=== PATIENT | male | born 1980 | race Caucasian/White ===

== ENCOUNTER 2017-06-14 16:54 | Inpatient (IN) | payer OTHER ==
[~2017-06-14] VITALS: Ht 172.7 cm; Wt 72.3 kg
[2017-06-14] MEDS ORDERED: IOHEXOL 350 MG/ML 10 ML VIAL (for RAD DIAG) IVCONTRAST ONE (16:55)
[2017-06-14 16:56] VITALS: BP 138/97; PULSE 76; RESP 16; TEMP 99.1; O2SAT 97
--- NOTE | 2017-06-14 17:39 | RADRPT ---
EXAM DATE/TIME: 06/14/2017 17:14 [facility] COMPARISON: No previous studies available for comparison. INDICATIONS : Lower chest pain for 2 weeks MEDICAL HISTORY : None. SURGICAL HISTORY : None. ENCOUNTER: Initial ACUITY: 2 weeks PAIN SCORE: 5/10 LOCATION: Bilateral lower chest FINDINGS: PA and lateral views of the chest demonstrate the lungs to be symmetrically aerated without evidence of mass, infiltrate or effusion. The cardiomediastinal contours are unremarkable. Osseous structure s are intact. CONCLUSION: 1. No acute cardiopulmonary disease. Tae Pardo MD on June 14, 2017 at 17:37 Board Certified Radiologist. This report was verified electronically.
[2017-06-14] MEDS ORDERED: SODIUM CHLOR 0.9% 1000 ML INJ 1,000 ML IV SCH (18:12)
[2017-06-14] MEDS ORDERED: SODIUM CHLORIDE 0.9% FLUSH 10 ML FLUSH IV FLUSH PRN ×2 (18:15→20:30)
[2017-06-14 18:37] VITALS: O2SAT 100
[2017-06-14 18:41] VITALS: BP 141/93; PULSE 63; RESP 18; O2SAT 100
[2017-06-14 18:51] LABS: AUTOMATED NEUTROPHIL # 6.3 TH/MM3 (1.8-7.7); BASOPHIL % 0.3 % (0.0-2.0); EOSINOPHIL % 0.5 % (0.0-4.0); HEMATOCRIT 36.7 % (39.0-51.0); HEMOGLOBIN 12.8 GM/DL (13.0-17.0); LYMPH % 20.6 % (9.0-44.0); LYMPHOCYTE # 1.8 TH/MM3 (1.0-4.8); MEAN CELL VOLUME 81.8 FL (80.0-100.0); MEAN CORPUSCULAR HEMOGLOBIN 28.5 PG (27.0-34.0); MEAN CORPUSCULAR HGB CONC 34.8 % (32.0-36.0); MEAN PLATELET VOLUME 6.3 FL (7.0-11.0); MONO % 6.8 % (0.0-8.0); MONOCYTE # 0.6 TH/MM3 (0-0.9); NEUT % 71.8 % (16.0-70.0); PLATELET COUNT 447 TH/MM3 (150-450); RED BLOOD COUNT 4.49 MIL/MM3 (4.50-5.90); RED CELL DISTRIBUTION WIDTH 13.2 % (11.6-17.2); WHITE BLOOD COUNT 8.8 TH/MM3 (4.0-11.0)
--- NOTE | 2017-06-14 19:02 | PD ---
HPI Chief Complaint: Musculoskeletal Complaint Time Seen by Provider: 18:12 Travel History International Travel<30 days: No Contact w/Intl Traveler<30days: No Traveled to known affect area: No History of Present Illness HPI 36-year-old male presents emergency Department with 2-3 week history of pain that he describes as sharp in the circumference of his lower thoracic wall and back. He states he woke up with it without significant history of trauma. He states it is been ongoing and intermittent, but worse with movement , and worse after 2 hours of trying to sleep. Patient is disabled with PTSD from the . Patient has history of ischemic stroke at the age of 28. Patient does not work. He states he's been taking ibuprofen and Naprosyn with some improvement, but symptoms seem to be worsening over time. Patient denies shortness of breath, cough, fever, chills, significant abdominal pain or changes in his urine or bowels. Patient has no history of Lyme disease. Patient is unsure of his family history as he was adopted. He has no other joint pain. He has no known drug allergies. PFSH Past Medical History Cerebrovascular Accident: Yes (2010 Ischemic) Diminished Hearing: No Tetanus Vaccination: > 5 Years ?: Not Past Surgical History Other Surgery: Yes (right shoulder ) Social History Alcohol Use: No Tobacco Use: No Substance Use: No Allergies-Medications (Allergen,Severity, Reaction): Coded Allergies: No Known Allergies (Unverified , 06/14/17) Reported Meds & Prescriptions Reported Meds & Active Scripts Active No Active Prescriptions or Reported Medications Review of Systems Except as stated in HPI: all other systems reviewed are Neg General / Constitutional: No: Fever Eyes: No: Visual changes HENT: No: Headaches Cardiovascular: No: Chest Pain or Discomfort Respiratory: No: Shortness of Breath Gastrointestinal: No: Abdominal Pain Genitourinary: No: Dysuria Musculoskeletal: Positive: Myalgias, Arthralgias, Limited ROM, Pain Skin: No Rash Neurologic: No: Weakness Psychiatric: No: Depression Endocrine: No: Polydipsia Hematologic/Lymphatic: No: Easy Bruising Physical Exam Narrative GENERAL: Patient appears in mild to moderate distress. SKIN: Warm and dry. Normal color. Normal turgor. No rash. HEAD: Atraumatic. Normocephalic. EYES: Pupils equal and round. No scleral icterus. No injection or drainage. ENT: No nasal bleeding or discharge. Mucous membranes pink and moist. Pharynx is clear. Airway is patent. NECK: Trachea midline. Supple and nontender. CARDIOVASCULAR: Regular rate and rhythm. RESPIRATORY: No accessory muscle use. Clear to auscultation. Breath sounds equal bilaterally. Patient has generalized tenderness with palpation to the thoracic wall without specific point tenderness. There is no sign of deformity or crepitus or subcutaneous emphysema. There is no point tenderness along the thoracic spine. GASTROINTESTINAL: Abdomen soft, non-tender, nondistended. Hepatic and splenic margins not palpable. MUSCULOSKELETAL: Extremities without clubbing, cyanosis, or edema. No obvious deformities. NEUROLOGICAL: Awake and alert. No obvious cranial nerve deficits. Motor grossly within normal limits. Five out of 5 muscle strength in the arms and legs. Normal speech. PSYCHIATRIC: Appropriate mood and affect; insight and judgment normal. Data Data Last Documented VS Vital Signs Date Time Temp Pulse Resp B/P (MAP) Pulse Ox O2 Delivery O2 Flow Rate FiO2 06/14/17 18:41 63 18 141/93 (109) 100 Room Air 06/14/17 16:56 99.1 Orders Orders Electrocardiogram (06/14/17 ) Chest, Pa & Lat (06/14/17 ) Complete Blood Count With Diff (06/14/17 18:12) Comprehensive Metabolic Panel (06/14/17 18:12) Lipase (06/14/17 18:12) Lactic Acid (06/14/17 18:12) Prothrombin Time / Inr (Pt) (06/14/17 18:12) Act Partial Throm Time (Ptt) (06/14/17 18:12) Ct Abd/Pel W Iv Contrast(Rout) (06/14/17 18:12) Iv Access Insert/Monitor (06/14/17 18:12) Ecg Monitoring (06/14/17 18:12) Oximetry (06/14/17 18:12) Sodium Chlor 0.9% 1000 Ml Inj (Ns 1000 M (06/14/17 18:12) Sodium Chloride 0.9% Flush (Ns Flush) (06/14/17 18:15) Electrocardiogram (06/14/17 18:12) Ct Thorax/ Chest W Iv Contrast (06/14/17 18:12) Westergren Sedimentation Rate (06/14/17 18:12) C-Reactive Protein (Crp) (06/14/17 18:12) Labs Laboratory Tests Test 06/14/17 18:30 White Blood Count 8.8 TH/MM3 Red Blood Count 4.49 MIL/MM3 Hemoglobin 12.8 GM/DL Hematocrit 36.7 % Mean Corpuscular Volume 81.8 FL Mean Corpuscular Hemoglobin 28.5 PG Mean Corpuscular Hemoglobin Concent 34.8 % Red Cell Distribution Width 13.2 % Platelet Count 447 TH/MM3 Mean Platelet Volume 6.3 FL Neutrophils (%) (Auto) 71.8 % Lymphocytes (%) (Auto) 20.6 % Monocytes (%) (Auto) 6.8 % Eosinophils (%) (Auto) 0.5 % Basophils (%) (Auto) 0.3 % Neutrophils # (Auto) 6.3 TH/MM3 Lymphocytes # (Auto) 1.8 TH/MM3 Monocytes # (Auto) 0.6 TH/MM3 Eosinophils # (Auto) 0.0 TH/MM3 Basophils # (Auto) 0.0 TH/MM3 CBC Comment DIFF FINAL Differential Comment MDM Medical Decision Making Medical Screen Exam Complete: Yes Emergency Medical Condition: Yes Differential Diagnosis Thoracic wall pain. Rheumatoid issue. Lyme disease. Pleurisy. Pancreatitis. Aortic aneurysm. Narrative Course Chest x-ray was ordered in triage and found to be normal. Labs ordered including CBC, CMP, urinalysis, CRP, sedimentation rate, PT PTT and INR. EKG is ordered. CT of the chest with IV contrast as well as the abdomen pelvis with IV contrast was ordered. Patient discussed with Dr. Pitt at change of shift at 1900 hrs. who will determine final disposition. Scripts No Active Prescriptions or Reported Meds Condition: Stable Kyaw Prakash Jun 14, 2017 19:02
[2017-06-14 19:04] LABS: INTERNATIONAL NORMALIZED RATIO 1.2 RATIO; PROTHROMBIN TIME - PATIENT 11.9 SEC (9.8-11.6)
[2017-06-14 19:07] LABS: ALBUMIN 3.5 GM/DL (3.4-5.0); AST (GOT) 12 U/L (15-37); BICARBONATE 29.4 MEQ/L (21.0-32.0); BLOOD UREA NITROGEN 14 MG/DL (7-18); CALCIUM 9.2 MG/DL (8.5-10.1); CHLORIDE 98 MEQ/L (98-107); CREATININE 0.71 MG/DL (0.60-1.30); GLOMERULAR FILTRATION RATE 126 ML/MIN (>89); GLUCOSE,RANDOM 88 MG/DL (74-106); LIPASE 167 U/L (73-393); SODIUM (NA) 133 MEQ/L (136-145)
[2017-06-14 19:09] LABS: ALT (GPT) 10 U/L (12-78)
[2017-06-14 19:11] LABS: ALKALINE PHOSPHATASE 64 U/L (45-117); TOTAL BILIRUBIN ADULT 0.3 MG/DL (0.2-1.0); TOTAL PROTEIN 9.2 GM/DL (6.4-8.2)
--- NOTE | 2017-06-14 19:20 | RADRPT ---
EXAM DATE/TIME: 06/14/2017 18:49 [facility] COMPARISON: CT ABDOMEN & PELVIS W CONTRAST, June 14, 2017, 18:47. INDICATIONS : Lower rib pain and upper back pain for three weeks. IV CONTRAST: 81 cc Omnipaque 350 (iohexol) IV ; Cumulative dose for multiple exams. RADIATION DOSE: 9.96 CTDIvol (mGy) ; Combined studies MEDICAL HISTORY : None SURGICAL HISTORY : None. ENCOUNTER: Initial ACUITY: 3 weeks PAIN SCALE: 10/10 LOCATION: chest TECHNIQUE: Volumetric scanning of the chest was performed. Using automated exposure control and adjustment of t he mA and/or kV according to patient size, radiation dose was kept as low as reasonably achievable to obtain optimal diagnostic quality images. DICOM format image data is available electronically for review and comparison. Follow-up recommendations for detected pulmonary nodules are based at a minimum on nodule size and pa tient risk factors according to Fleischner Society Guidelines. FINDINGS: There is a lytic and destructive lesion involving the T8 vertebra near the lower end plate with lesse r involvement of T9 superior endplate as well. There is paravertebral haziness with soft tissue densi ty at this level and maximum thickness of almost 9 mm. The lungs are clear without infiltrate, nodule , or mass. There is no pleural effusion. No appreciable pathological adenopathy is seen within the mediastinum. CONCLUSION: Abnormal appearance to the T8-9 mainly involving T8 vertebrae and paravertebral soft tissue process at this site highly suspicious for discitis and osteomyelitis in the appropriate clini cindi setting, however neoplastic etiologies are difficult to exclude. Page Barron MD on June 14, 2017 at 19:13 Board Certified Radiologist. This report was verified electronically.
--- NOTE | 2017-06-14 19:30 | RADRPT ---
EXAM DATE/TIME: 06/14/2017 18:47 [facility] COMPARISON: No previous studies available for comparison. INDICATIONS : Lower rib pain and upper back pain for three weeks IV CONTRAST: 81 cc Omnipaque 350 (iohexol) IV ; Cumulative dose for multiple exams. ORAL CONTRAST: No oral contrast ingested. RADIATION DOSE: 9.96 CTDIvol (mGy) ; Combined studies - Thorax/Abdomen/Pelvis MEDICAL HISTORY : None SURGICAL HISTORY : None. ENCOUNTER: Initial ACUITY: 3 weeks PAIN SCALE: 10/10 LOCATION: Abdomen TECHNIQUE: Volumetric scanning of the abdomen and pelvis was performed. Using automated exposure control and adjustment of the mA and/or kV according to patient size, radiation dose was kept as low as reasonably achievable to obtain optimal diagnostic quality images. DICOM format image data is av ailable electronically for review and comparison. FINDINGS: CT Abdomen: The liver, spleen, pancreas, kidneys, adrenals are unremarkable. There is no evidence for any appreciable pathological adenopathy, free fluid, or bowel obstruction. Please refer to chest CT for discussions of the abnormalities at the level of T8-9. CT pelvis: There is no evidence for mass, abscess formation, or any significant adenopathy within the pelvis. CONCLUSION: Essentially unremarkable abdominal/pelvic study. Page Barron MD on June 14, 2017 at 19:24 Board Certified Radiologist. This report was verified electronically.
[2017-06-14] MEDS ORDERED: VANCOMYCIN INJ 1,000 MG in SODIUM CHLOR 0.9% 250 ML INJ 250 ML IV ONE (19:45)
[2017-06-14] MEDS ORDERED: MORPHINE SULFATE 4 MG/ML INJ IV PUSH ONE (19:45)
[2017-06-14] MEDS ORDERED: PIPERACIL-TAZO 4.5 GM PREMIX 100 ML IV ONE (19:45)
--- NOTE | 2017-06-14 19:56 | PD ---
Data Data Last Documented VS Vital Signs Date Time Temp Pulse Resp B/P (MAP) Pulse Ox O2 Delivery O2 Flow Rate FiO2 06/14/17 18:41 63 18 141/93 (109) 100 Room Air 06/14/17 16:56 99.1 Orders Orders Electrocardiogram (06/14/17 ) Chest, Pa & Lat (06/14/17 ) Complete Blood Count With Diff (06/14/17 18:12) Comprehensive Metabolic Panel (06/14/17 18:12) Lipase (06/14/17 18:12) Lactic Acid (06/14/17 18:12) Prothrombin Time / Inr (Pt) (06/14/17 18:12) Act Partial Throm Time (Ptt) (06/14/17 18:12) Ct Abd/Pel W Iv Contrast(Rout) (06/14/17 18:12) Iv Access Insert/Monitor (06/14/17 18:12) Ecg Monitoring (06/14/17 18:12) Oximetry (06/14/17 18:12) Sodium Chlor 0.9% 1000 Ml Inj (Ns 1000 M (06/14/17 18:12) Sodium Chloride 0.9% Flush (Ns Flush) (06/14/17 18:15) Electrocardiogram (06/14/17 18:12) Ct Thorax/ Chest W Iv Contrast (06/14/17 18:12) Westergren Sedimentation Rate (06/14/17 18:12) Iohexol 350 Inj (Omnipaque 350 Inj) (06/14/17 16:55) C-Reactive Protein (Crp) (06/14/17 18:30) Piperacil-Tazo 4.5 Gm Premix (Zosyn 4.5 (06/14/17 19:45) Vancomycin Inj (Vancomycin Inj) (06/14/17 19:45) Blood Culture (06/14/17 19:32) Drug Screen, Random Urine (06/14/17 19:51) Admit Order (Ed Use Only) (06/14/17 ) Piperacil-Tazo 3.375 Gm Premix (Zosyn 3. (06/15/17 02:00) Vancomycin Consult Pharmacy (Vancomycin (06/14/17 20:30) Vancomycin Inj (Vancomycin Inj) (06/15/17 06:30) Consult Infectious Disease (06/14/17 ) Admit To Inpatient (06/14/17 ) Vital Signs (Adult) Q4H (06/14/17 20:27) Activity Oob With Assistance (06/14/17 20:27) Diet Regular Basic (06/15/17 Breakfast) Sodium Chloride 0.9% Flush (Ns Flush) (06/14/17 20:30) Sodium Chloride 0.9% Flush (Ns Flush) (06/14/17 21:00) Acetaminophen (Tylenol) (06/14/17 20:30) Ondansetron Inj (Zofran Inj) (06/14/17 20:30) Basic Metabolic Panel (Bmp) (06/15/17 06:00) Complete Blood Count With Diff (06/15/17 06:00) Case Management Consult (06/14/17 20:27) Scd Bilateral/Knee High TYRA.BID (06/14/17 20:27) Naloxone Inj (Narcan Inj) (06/14/17 20:30) Docusate Sodium-Senna (Yas-Colace) (06/14/17 21:00) Magnesium Hydroxide Liq (Milk Of Magnesi (06/14/17 20:30) Sennosides (Senokot) (06/14/17 20:30) Bisacodyl Supp (Dulcolax Supp) (06/14/17 20:30) Lactulose Liq (Lactulose Liq) (06/14/17 20:30) Inpatient Certification (06/14/17 ) Labs Laboratory Tests Test 06/14/17 18:30 White Blood Count 8.8 TH/MM3 Red Blood Count 4.49 MIL/MM3 Hemoglobin 12.8 GM/DL Hematocrit 36.7 % Mean Corpuscular Volume 81.8 FL Mean Corpuscular Hemoglobin 28.5 PG Mean Corpuscular Hemoglobin Concent 34.8 % Red Cell Distribution Width 13.2 % Platelet Count 447 TH/MM3 Mean Platelet Volume 6.3 FL Neutrophils (%) (Auto) 71.8 % Lymphocytes (%) (Auto) 20.6 % Monocytes (%) (Auto) 6.8 % Eosinophils (%) (Auto) 0.5 % Basophils (%) (Auto) 0.3 % Neutrophils # (Auto) 6.3 TH/MM3 Lymphocytes # (Auto) 1.8 TH/MM3 Monocytes # (Auto) 0.6 TH/MM3 Eosinophils # (Auto) 0.0 TH/MM3 Basophils # (Auto) 0.0 TH/MM3 CBC Comment DIFF FINAL Differential Comment Erythrocyte Sedimentation Rate 49 mm/hr Prothrombin Time 11.9 SEC Prothromb Time International Ratio 1.2 RATIO Activated Partial Thromboplast Time 32.2 SEC Blood Urea Nitrogen 14 MG/DL Creatinine 0.71 MG/DL Random Glucose 88 MG/DL Total Protein 9.2 GM/DL Albumin 3.5 GM/DL Calcium Level 9.2 MG/DL Alkaline Phosphatase 64 U/L Aspartate Amino Transf (AST/SGOT) 12 U/L Alanine Aminotransferase (ALT/SGPT) 10 U/L Total Bilirubin 0.3 MG/DL Sodium Level 133 MEQ/L Potassium Level 3.8 MEQ/L Chloride Level 98 MEQ/L Carbon Dioxide Level 29.4 MEQ/L Anion Gap 6 MEQ/L Estimat Glomerular Filtration Rate 126 ML/MIN Lactic Acid Level 0.6 mmol/L C-Reactive Protein 3.90 MG/DL Lipase 167 U/L MDM Supervised Visit with HUGO: Yes Narrative Course Patient care assumed from Rajesh Prakash PAC at 1900. Patient 36-year-old male adamantly demise IV drug abuse or surgical intervention to his spine presents emergency department for a week and a half worth of pain from underneath his shoulder blades wrapping around to the front. States she's never had injury, no pain like this in the past. States is waking him up screaming in the middle the night. Basic imaging was ordered for a CT chest abdomen and pelvis showing the following results: Last [address] 06/14/171811 Signed Impressions: Service Date/Time: Wednesday, June 14, 2017 18:49 - CONCLUSION: Abnormal appearance to the T8-9 mainly involving T8 vertebrae and paravertebral soft tissue process at this site highly suspicious for discitis and osteomyelitis in the appropriate clinical setting, however neoplastic etiologies are difficult to exclude. Page Barron MD Abdomen/Pelvis CT 06/14/[id number] Signed Impressions: Service Date/Time: Wednesday, June 14, 2017 18:47 - CONCLUSION: Essentially unremarkable abdominal/pelvic study. Page Barron MD Chest X-Ray 06/14/17 0000 Signed Impressions: Service Date/Time: Wednesday, June 14, 2017 17:14 - CONCLUSION: 1. No acute cardiopulmonary disease. Tae Pardo MD The patient is neurologically intact and has 5 out of 5 strength in bilateral lower extremities with sensation intact. Urine drug screen has been ordered, patient will be started on vancomycin and Zosyn and admitted to the hospital, discussed with Dr. Cook. Diagnosis Primary Impression: Discitis of thoracic region Additional Impression: Osteomyelitis of thoracic region Admitting Information Admitting Physician Requests: Admit Scripts No Active Prescriptions or Reported Meds Condition: Stable Mike Perry MD Jun 14, 2017 19:56
[2017-06-14] MEDS ORDERED: NALOXONE HCL 0.4 MG/ML AMP IV PUSH PRN (20:30)
[2017-06-14] MEDS ORDERED: MAGNESIUM HYDROXIDE SUSP 30 ML CUP PO PRN (20:30)
[2017-06-14] MEDS ORDERED: SENNOSIDES 8.6 MG TAB PO PRN (20:30)
[2017-06-14] MEDS ORDERED: BISACODYL 10 MG SUPP RECTAL PRN (20:30)
[2017-06-14] MEDS ORDERED: Vancomycin Consult Pharmacy 1 EA OTHER SCH (20:30)
[2017-06-14] MEDS ORDERED: ONDANSETRON HCL 4 MG/2 ML VIAL IVP PRN (20:30)
[2017-06-14] MEDS ORDERED: ACETAMINOPHEN 325 MG TAB PO PRN ×2 (20:30→23:30)
[2017-06-14] MEDS ORDERED: LACTULOSE SYRUP 20 GM/30 ML CUP PO PRN (20:30)
[2017-06-14] MEDS ORDERED: MORPHINE SULFATE 2 MG/ML INJ IV PUSH ONE (21:00)
--- NOTE | 2017-06-14 21:30 | HHI.HP ---
[facility] No Primary Care Physician Admission Diagnosis Disciitis and osteomyelitits of thoracic spine. Diagnoses: Travel History International Travel<30 Days: No Contact w/Intl Traveler <30 Da: No Traveled to Known Affected Are: No History of Present Illness 36-year-old male with a past medical history of ischemic stroke in 2010 presents to the emergency department for the evaluation of back pain. The patient reports the pain started 3 weeks ago and was generalized to the thoracic spine. He describes the pain as cramping and spasms worse when he moves or bends over. He states that it radiates around his ribs. He denies any fever/chills. Denies any extremity weakness or bowel/bladder incontinence. Chest CT revealed abnormal appearance to the T8-9 vertebrae and paravertebral soft tissue process highly suspicious for discitis and osteomyelitis. On arrival to the emergency department the patient is afebrile with stable vital signs. WBCs 8.8. Review of Systems Denies fever or chills Denies blurry vision, otorrhea, rhinorrhea Denies sore throat and cough No chest pain, palpitations, shortness of breath No abdominal pain Denies constipation/diarrhea/nausea/vomiting Low back pain No rashes Past Family Social History Past Medical History Ischemic stroke in 2010 - patient quit taking his Plavix approximately 2-3 years ago Past Surgical History Right shoulder 3 Tonsillectomy Reported Medications Reported Meds & Active Scripts Active No Active Prescriptions or Reported Medications Allergies: Coded Allergies: No Known Allergies (Unverified , 06/14/17) Family History Patient is adopted, does not have knowledge of his family history Social History Positive chewing tobacco. Denies smoking, alcohol and illicit drugs. Physical Exam Vital Signs Vital Signs Date Time Temp Pulse Resp B/P (MAP) Pulse Ox O2 Delivery O2 Flow Rate FiO2 06/14/17 18:41 63 18 141/93 (109) 100 Room Air 06/14/17 18:37 100 Room Air 06/14/17 16:56 99.1 76 16 138/97 (111) 97 Room Air Physical Exam GENERAL: male sitting up in bed SKIN: No rashes, ecchymoses or lesions. Cool and dry. HEAD: Atraumatic. Normocephalic. No temporal or scalp tenderness. EYES: Pupils equal round and reactive. Extraocular motions intact. No scleral icterus. No injection or drainage. ENT: Nose without bleeding, purulent drainage or septal hematoma. Throat without erythema, tonsillar hypertrophy or exudate. Uvula midline. Airway patent. NECK: Trachea midline. No JVD or lymphadenopathy. Supple, nontender, no meningeal signs. CARDIOVASCULAR: Regular rate and rhythm without murmurs, gallops, or rubs. RESPIRATORY: Clear to auscultation. Breath sounds equal bilaterally. No wheezes , rales, or rhonchi. GASTROINTESTINAL: Abdomen soft, non-tender, nondistended. No hepato-splenomegaly , or palpable masses. No guarding. MUSCULOSKELETAL: Extremities without clubbing, cyanosis, or edema. No joint tenderness, effusion, or edema noted. No calf tenderness. NEUROLOGICAL: Awake and alert. Cranial nerves II through XII intact. Motor and sensory within normal limits. Five out of 5 muscle strength in all muscle groups. Normal speech. Laboratory Laboratory Tests Test 06/14/17 18:30 White Blood Count 8.8 Red Blood Count 4.49 Hemoglobin 12.8 Hematocrit 36.7 Mean Corpuscular Volume 81.8 Mean Corpuscular Hemoglobin 28.5 Mean Corpuscular Hemoglobin Concent 34.8 Red Cell Distribution Width 13.2 Platelet Count 447 Mean Platelet Volume 6.3 Neutrophils (%) (Auto) 71.8 Lymphocytes (%) (Auto) 20.6 Monocytes (%) (Auto) 6.8 Eosinophils (%) (Auto) 0.5 Basophils (%) (Auto) 0.3 Neutrophils # (Auto) 6.3 Lymphocytes # (Auto) 1.8 Monocytes # (Auto) 0.6 Eosinophils # (Auto) 0.0 Basophils # (Auto) 0.0 CBC Comment DIFF FINAL Differential Comment Erythrocyte Sedimentation Rate 49 Prothrombin Time 11.9 Prothromb Time International Ratio 1.2 Activated Partial Thromboplast Time 32.2 Blood Urea Nitrogen 14 Creatinine 0.71 Random Glucose 88 Total Protein 9.2 Albumin 3.5 Calcium Level 9.2 Alkaline Phosphatase 64 Aspartate Amino Transf (AST/SGOT) 12 Alanine Aminotransferase (ALT/SGPT) 10 Total Bilirubin 0.3 Sodium Level 133 Potassium Level 3.8 Chloride Level 98 Carbon Dioxide Level 29.4 Anion Gap 6 Estimat Glomerular Filtration Rate 126 Lactic Acid Level 0.6 C-Reactive Protein 3.90 Lipase 167 Date/Time Source Procedure Growth Status 06/14/17 20:20 Blood Peripheral Aerobic Blood Culture Pending Received 06/14/17 20:20 Blood Peripheral Anaerobic Blood Culture Pending Received Result Diagram: 06/14/17182906/14/17 183 Caprini VTE Risk Assessment Caprini VTE Risk Assessment: No/Low Risk (score <= 1) Caprini Risk Assessment Model Point Value = 1 Point Value = 2 Point Value = 3 Point Value = 5 Age 41-60 Minor surgery BMI > 25 kg/m2 Swollen legs Varicose veins or History of unexplained or recurrent spontaneous Oral contraceptives or hormone replacement Sepsis (< 1 month) Serious lung disease, including pneumonia (< 1 month) Abnormal pulmonary function Acute myocardial infarction Congestive heart failure (< 1 month) History of inflammatory bowel disease Medical patient at bed rest Age 61-74 Arthroscopic surgery Major open surgery (> 45 min) Laparoscopic surgery (> 45 min) Malignancy Confined to bed (> 72 hours) Immobilizing plaster cast Central venous access Age >= 75 History of VTE Family history of VTE Factor V Leiden Prothrombin [id number] Lupus anticoagulant Anticardiolipin antibodies Elevated serum homocysteine Heparin-induced thrombocytopenia Other congenital or acquired thrombophilia Stroke (< 1 month) Elective arthroplasty Hip, pelvis, or leg fracture Acute spinal cord injury (< 1 month) Prophylaxis Regimen Total Risk Factor Score Risk Level Prophylaxis Regimen 0-1 Low Early ambulation 2 Moderate Order ONE of the following: *Sequential Compression Device (SCD) *Heparin 5000 units SQ BID 3-4 Higher Order ONE of the following medications: *Heparin 5000 units SQ TID *Enoxaparin/Lovenox 40 mg SQ daily (WT < 150 kg, CrCl > 30 mL/min) *Enoxaparin/Lovenox 30 mg SQ daily (WT < 150 kg, CrCl > 10-29 mL/min) *Enoxaparin/Lovenox 30 mg SQ BID (WT < 150 kg, CrCl > 30 mL/min) AND/OR *Sequential Compression Device (SCD) 5 or more Highest Order ONE of the following medications: *Heparin 5000 units SQ TID (Preferred with Epidurals) *Enoxaparin/Lovenox 40 mg SQ daily (WT < 150 kg, CrCl > 30 mL/min) *Enoxaparin/Lovenox 30 mg SQ daily (WT < 150 kg, CrCl > 10-29 mL/min) *Enoxaparin/Lovenox 30 mg SQ BID (WT < 150 kg, CrCl > 30 mL/min) AND *Sequential Compression Device (SCD) Assessment and Plan Assessment and Plan Assessment/plan: 1. T8-9 discitis/osteomyelitis Chest CT revealed abnormal appearance to the T8-9 vertebrae and paravertebral soft tissue process highly suspicious for discitis and osteomyelitis No leukocytosis or signs of sepsis Blood cultures pending ESR 49, CRP 3.90 Vancomycin/Zosyn Monitor for signs of sepsis Infectious disease consulted, appreciate recommendations Patient adamantly denies history of IV drug abuse, urine drug screen pending 2. History of CVA Encouraged patient to resume his Plavix FEN Regular diet Electrolytes: monitor and replete prn SCDs Physician Certification 2 Midnight Certification Type: Admission for Inpatient Services Order for Inpatient Services The services are ordered in accordance with Medicare regulations or non- Medicare payer requirements, as applicable. In the case of services not specified as inpatient-only, they are appropriately provided as inpatient services in accordance with the 2-midnight benchmark. Estimated LOS (days): 2 2 days is the estimated time the patient will need to remain in the hospital, assuming treatment plan goals are met and no additional complications. Post-Hospital Plan: Not yet determined Janee Cook MD Jun 14, 2017 21:30
[2017-06-14] MEDS: DOCUSATE SODIUM 50 MG/SENNA 8.6 MG TAB PO SCH (21:56)
[2017-06-14] MEDS: SODIUM CHLORIDE 0.9% FLUSH 10 ML FLUSH IV FLUSH SCH (21:57)
[2017-06-14 22:05] VITALS: BP 139/82; PULSE 60; RESP 18; TEMP 98.2; O2SAT 100
[2017-06-14] MEDS: ACETAMINOPHEN/HYDROcodone 325 MG/5 MG TAB PO PRN (23:48)
[2017-06-15] VITALS (7 sets, daily range): BP systolic 106–135; BP diastolic 56–79; PULSE 51–81; RESP 16–18; TEMP 97.5–98.4; O2SAT 96–100
[2017-06-15] MEDS: MORPHINE SULFATE 2 MG/ML INJ IV PUSH PRN ×5 (01:07→22:19)
[2017-06-15 05:56] LABS: AUTOMATED NEUTROPHIL # 2.6 TH/MM3 (1.8-7.7); BASOPHIL % 0.4 % (0.0-2.0); EOSINOPHIL # 0.1 TH/MM3 (0-0.4); EOSINOPHIL % 1.2 % (0.0-4.0); HEMATOCRIT 30.6 % (39.0-51.0); HEMOGLOBIN 10.4 GM/DL (13.0-17.0); LYMPH % 34.9 % (9.0-44.0); LYMPHOCYTE # 1.7 TH/MM3 (1.0-4.8); MEAN CELL VOLUME 80.7 FL (80.0-100.0); MEAN CORPUSCULAR HEMOGLOBIN 27.5 PG (27.0-34.0); MEAN CORPUSCULAR HGB CONC 34.1 % (32.0-36.0); MEAN PLATELET VOLUME 6.4 FL (7.0-11.0); MONO % 9.9 % (0.0-8.0); MONOCYTE # 0.5 TH/MM3 (0-0.9); NEUT % 53.6 % (16.0-70.0); PLATELET COUNT 323 TH/MM3 (150-450); RED BLOOD COUNT 3.79 MIL/MM3 (4.50-5.90); RED CELL DISTRIBUTION WIDTH 12.9 % (11.6-17.2); WHITE BLOOD COUNT 4.8 TH/MM3 (4.0-11.0)
[2017-06-15] MEDS: PIPERACIL-TAZO 3.375 GM PREMIX 50 ML IV SCH ×2 (05:59→09:40)
[2017-06-15] MEDS: ACETAMINOPHEN/HYDROcodone 325 MG/7.5 MG TAB PO PRN ×4 (06:05→20:13)
[2017-06-15 06:22] LABS: BICARBONATE 28.9 MEQ/L (21.0-32.0); CALCIUM 8.6 MG/DL (8.5-10.1); CREATININE 0.61 MG/DL (0.60-1.30)
[2017-06-15] MEDS ORDERED: VANCOMYCIN INJ 1,000 MG in SODIUM CHLOR 0.9% 250 ML INJ 250 ML IV SCH (08:00)
[2017-06-15] MEDS: SODIUM CHLORIDE 0.9% FLUSH 10 ML FLUSH IV FLUSH SCH ×2 (09:41→22:22)
[2017-06-15] MEDS: DOCUSATE SODIUM 50 MG/SENNA 8.6 MG TAB PO SCH ×2 (09:41→22:22)
--- NOTE | 2017-06-15 09:44 | HHI.PR ---
Subjective Remarks In bed, appears in nad. Pain is controlled nby meds. No fever or chills. no n/v/ d/c. Objective Vitals Vital Signs Date Time Temp Pulse Resp B/P (MAP) Pulse Ox O2 Delivery O2 Flow Rate FiO2 06/15/17 07:42 98.3 81 18 108/69 (82) 100 06/15/17 05:12 97.9 60 113/66 (82) 97 06/15/17 01:02 98.4 54 18 120/75 (90) 99 06/14/17 22:05 98.2 60 18 139/82 (101) 100 06/14/17 18:41 63 18 141/93 (109) 100 Room Air 06/14/17 18:37 100 Room Air 06/14/17 16:56 99.1 76 16 138/97 (111) 97 Room Air I/O 06/14/17 06/14/17 06/14/17 06/15/17 06/15/17 06/15/17 07:00 15:00 23:00 07:00 15:00 23:00 Intake Total 1350 ml 50 ml Output Total 150 ml Balance 1200 ml 50 ml Intake IV Total 1350 ml 50 ml Output Urine Total 150 ml Result Diagram: 06/15/17 0433 06/15/17 0433 Imaging Last Impressions Chest CT 06/14/171811 Signed Impressions: Service Date/Time: Wednesday, June 14, 2017 18:49 - CONCLUSION: Abnormal appearance to the T8-9 mainly involving T8 vertebrae and paravertebral soft tissue process at this site highly suspicious for discitis and osteomyelitis in the appropriate clinical setting, however neoplastic etiologies are difficult to exclude. Page Barron MD Abdomen/Pelvis CT 06/14/171811 Signed Impressions: Service Date/Time: Wednesday, June 14, 2017 18:47 - CONCLUSION: Essentially unremarkable abdominal/pelvic study. Page Barron MD Chest X-Ray 06/14/17 0000 Signed Impressions: Service Date/Time: Wednesday, June 14, 2017 17:14 - CONCLUSION: 1. No acute cardiopulmonary disease. Tae Pardo MD Objective Remarks GENERAL: male sitting up in bed CARDIOVASCULAR: Regular rate and rhythm without murmurs, gallops, or rubs. RESPIRATORY: Clear to auscultation. Breath sounds equal bilaterally. No wheezes , rales, or rhonchi. GASTROINTESTINAL: Abdomen soft, non-tender, nondistended. No hepato-splenomegaly , or palpable masses. No guarding. MUSCULOSKELETAL: Extremities without clubbing, cyanosis, or edema. No joint tenderness, effusion, or edema noted. No calf tenderness. NEUROLOGICAL: Awake and alert. Cranial nerves II through XII intact. Motor and sensory within normal limits. Five out of 5 muscle strength in all muscle groups. Normal speech. A/P Assessment and Plan T8-9 discitis/osteomyelitis Chest CT revealed abnormal appearance to the T8-9 vertebrae and paravertebral soft tissue process highly suspicious for discitis and osteomyelitis No leukocytosis or signs of sepsis Blood cultures pending ESR 49, CRP 3.90 Vancomycin/Zosyn Monitor for signs of sepsis Infectious disease consulted, appreciate recommendations Patient adamantly denies history of IV drug abuse, urine drug screen positive for opiates History of CVA Encouraged patient to resume his Plavix DVT ppx : SCDs Discussed with the patient, nurse Cristiane Javed MD Jun 15, 2017 09:44
--- NOTE | 2017-06-15 12:14 | PD.ID.CON ---
History of Present Illness Service ID Consult Requested By Dr Cook Reason for Consult diskitis osteo Primary Care Physician No Primary Care Physician Diagnoses: History of Present Illness 36 yo male with past med history remarkable for ischemic stroke but o/w negative He woke up with severe back pain about 2.5 weeks ago Denies prior trauma or any procedures No fever, chills, night sweats No other c/o, including no GI or complaints Pt had CT abd/pel and chest done and it showed abnormal appearance to the T8-9 mainly involving T8 vertebrae and paravertebral soft tissue process at this site highly suspicious for discitis and osteomyelitis in the appropriate clinical setting, however neoplastic etiologies are difficult to exclude Pt has no fever, no leukocytosis Pt was started on empiric abx blood clx obtained and are negative Review of Systems Constitutional: COMPLAINS OF: Weight loss Musculoskeletal: COMPLAINS OF: Back pain Neurologic: COMPLAINS OF: Abnormal gait Except as stated in HPI: all other systems reviewed are Neg Past Family Social History Allergies: Coded Allergies: No Known Allergies (Unverified , 06/14/17) Past Medical History Ischemic stroke in 2010 - patient quit taking his Plavix approximately 2-3 years ago Past Surgical History Right shoulder 3 Tonsillectomy Active Ordered Medications Medications where reviewed in EMR Antibiotics Include: marko cam Family History Patient is adopted, does not have knowledge of his family history Social History Positive chewing tobacco. Denies smoking, alcohol and illicit drugs. Physical Exam Vital Signs Vital Signs Date Time Temp Pulse Resp B/P (MAP) Pulse Ox O2 Delivery O2 Flow Rate FiO2 06/15/17 12:00 98.0 55 18 106/56 (73) 97 06/15/17 07:42 98.3 81 18 108/69 (82) 100 06/15/17 05:12 97.9 60 113/66 (82) 97 06/15/17 01:02 98.4 54 18 120/75 (90) 99 06/14/17 22:05 98.2 60 18 139/82 (101) 100 06/14/17 18:41 63 18 141/93 (109) 100 Room Air 06/14/17 18:37 100 Room Air 06/14/17 16:56 99.1 76 16 138/97 (111) 97 Room Air Physical Exam CONSTITUTIONAL/GENERAL: This is an adequately nourished patient, in no apparent distress. TUBES/LINES/DRAINS: SKIN: No jaundice, rashes, or lesions. Ecchymoses on upper extremities. No wounds seen anteriorly. Skin temperature appropriate. Not diaphoretic. HEAD: Atraumatic. Normocephalic. EYES: Pupils equal and round and reactive. Extraocular motions intact. No scleral icterus. No injection or drainage. Fundi not examined. ENT: Hearing grossly normal. Nose without bleeding or purulent drainage. Throat without visible erythema, exudates, masses, or lesions. NECK: Trachea midline. Supple, nontender. No palpable thyroid enlargement or nodularity. CARDIOVASCULAR: Regular rate and rhythm without murmurs, gallops, or rubs. No JVD. Peripheral pulses symmetric. RESPIRATORY/CHEST: Symmetric, unlabored respirations. Clear to auscultation. Breath sounds equal bilaterally. No wheezes, rales, or rhonchi. GASTROINTESTINAL: Abdomen soft, non-tender, nondistended. No hepato-splenomegaly , or palpable masses. No guarding. Bowel sounds present. GENITOURINARY: Without palpable bladder distension MUSCULOSKELETAL: Extremities without clubbing, cyanosis, or edema. No joint tenderness or effusion noted. No calf tenderness. No mottling or clubbing. BACK: no obvious deformities Not tender to palpation over spine LYMPHATICS: No palpable cervical or supraclavicular adenopathy. NEUROLOGICAL: Awake and alert. Motor and sensory grossly within normal limits. Follows commands. Cognitively sharp. Moves all extremities. Gait with limping but not using any supportive devices PSYCHIATRIC: No obvious anxiety/depression. no apparent hallucinations or other psychotic thought process. Laboratory Laboratory Tests Test 06/14/17 18:30 06/15/17 00:32 06/15/17 04:33 White Blood Count 8.8 4.8 Red Blood Count 4.49 3.79 Hemoglobin 12.8 10.4 Hematocrit 36.7 30.6 Mean Corpuscular Volume 81.8 80.7 Mean Corpuscular Hemoglobin 28.5 27.5 Mean Corpuscular Hemoglobin Concent 34.8 34.1 Red Cell Distribution Width 13.2 12.9 Platelet Count 447 323 Mean Platelet Volume 6.3 6.4 Neutrophils (%) (Auto) 71.8 53.6 Lymphocytes (%) (Auto) 20.6 34.9 Monocytes (%) (Auto) 6.8 9.9 Eosinophils (%) (Auto) 0.5 1.2 Basophils (%) (Auto) 0.3 0.4 Neutrophils # (Auto) 6.3 2.6 Lymphocytes # (Auto) 1.8 1.7 Monocytes # (Auto) 0.6 0.5 Eosinophils # (Auto) 0.0 0.1 Basophils # (Auto) 0.0 0.0 CBC Comment DIFF FINAL DIFF FINAL Differential Comment Erythrocyte Sedimentation Rate 49 Prothrombin Time 11.9 Prothromb Time International Ratio 1.2 Activated Partial Thromboplast Time 32.2 Blood Urea Nitrogen 14 8 Creatinine 0.71 0.61 Random Glucose 88 98 Total Protein 9.2 Albumin 3.5 Calcium Level 9.2 8.6 Alkaline Phosphatase 64 Aspartate Amino Transf (AST/SGOT) 12 Alanine Aminotransferase (ALT/SGPT) 10 Total Bilirubin 0.3 Sodium Level 133 138 Potassium Level 3.8 3.4 Chloride Level 98 102 Carbon Dioxide Level 29.4 28.9 Anion Gap 6 7 Estimat Glomerular Filtration Rate 126 150 Lactic Acid Level 0.6 C-Reactive Protein 3.90 Lipase 167 Urine Opiates Screen POS Urine Barbiturates Screen NEG Urine Amphetamines Screen NEG Urine Benzodiazepines Screen NEG Urine Cocaine Screen NEG Urine Cannabinoids Screen NEG Date/Time Source Procedure Growth Status 06/14/17 20:20 Blood Peripheral Aerobic Blood Culture - Preliminary NO GROWTH IN 1 DAY Resulted 06/14/17 20:20 Blood Peripheral Anaerobic Blood Culture - Preliminary NO GROWTH IN 1 DAY Resulted Result Diagram: 06/15/17 0433 06/15/17 0433 Imaging Last Impressions Chest CT 06/14/171811 Signed Impressions: Service Date/Time: Wednesday, June 14, 2017 18:49 - CONCLUSION: Abnormal appearance to the T8-9 mainly involving T8 vertebrae and paravertebral soft tissue process at this site highly suspicious for discitis and osteomyelitis in the appropriate clinical setting, however neoplastic etiologies are difficult to exclude. Page Barron MD Abdomen/Pelvis CT 06/14/171811 Signed Impressions: Service Date/Time: Wednesday, June 14, 2017 18:47 - CONCLUSION: Essentially unremarkable abdominal/pelvic study. Page Barron MD Chest X-Ray 06/14/17 0000 Signed Impressions: Service Date/Time: Wednesday, June 14, 2017 17:14 - CONCLUSION: 1. No acute cardiopulmonary disease. Tae Pardo MD Assessment and Plan Assessment and Plan Suspected abscess/diskitis/ osteomyelitis of T spine CT guided aspiration with routine/AFB/fungal clx will start on empiric abx after bx obtained dw April Agudelo MD Jun 15, 2017 12:14
[2017-06-15] MEDS ORDERED: GADODIAMIDE PF 287 MG/ML 5 ML VIAL (for RAD MRI) IV PUSH ONE (14:05)
--- NOTE | 2017-06-15 15:03 | RADRPT ---
EXAM DATE/TIME: 06/15/2017 13:43 [facility] COMPARISON: No previous studies available for comparison. INDICATIONS : Osteomyelitis. CONTRAST: 15 cc Omniscan (gadodiamide) IV MEDICAL HISTORY : None. SURGICAL HISTORY : None. Tumor removal, humeral head. ENCOUNTER: Subsequent ACUITY: 3 weeks PAIN SCORE: 10/10 LOCATION: Paraspinal TECHNIQUE: Multiplanar multisequence MRI of the thoracic spine was performed. FINDINGS: FINDINGS: Sagittal images demonstrate normal vertebral body alignment and curvature. There is marrow edema at t he T7 and T8 levels with brisk enhancement carious teeth of discitis and osteomyelitis. The cord itse lf is normal in caliber and signal intensity. The conus terminates normally. Axial images were perfor med from T1-T2 through T12-L1. T1-T2: No significant abnormalities identified. T2-T3: No significant abnormalities identified. T3-T4: No significant abnormalities identified. T4-T5: No significant abnormalities identified. T5-T6: No significant abnormalities identified. T6-T7: No significant abnormalities identified. T7-T8: Is prominent enhancement of the disc space as well as the adjacent vertebral bodies with epidural sof t tissue characteristic of inflammatory process without evidence of abscess. There is also a small ce ntral disc protrusion present at this level. This touches the ventral aspect of the thecal sac. Small bilateral effusions are present. T8-T9: No significant abnormalities identified. T9-T10: No significant abnormalities identified. T10-T11: No significant abnormalities identified. T11-T12: No significant abnormalities identified. T12-L1: No significant abnormalities identified. CONCLUSION: 1. Findings characteristic of discitis at T7-T8 level with paraspinal and epidural inflammatory cedeno es. This would be accessible to percutaneous biopsy. Tae Pardo MD on June 15, 2017 at 14:56 Board Certified Radiologist. This report was verified electronically.
[2017-06-15] MEDS ORDERED: VANCOMYCIN INJ 1,500 MG in SODIUM CHLORID 0.9% 500 ML INJ 500 ML IV SCH (18:00)
[2017-06-16] VITALS (9 sets, daily range): BP systolic 105–170; BP diastolic 64–87; PULSE 49–69; RESP 16–20; TEMP 97.4–98.8; O2SAT 94–100
[2017-06-16] MEDS: ACETAMINOPHEN/HYDROcodone 325 MG/7.5 MG TAB PO PRN ×4 (01:59→21:09)
[2017-06-16] MEDS: MORPHINE SULFATE 2 MG/ML INJ IV PUSH PRN (04:28)
[2017-06-16] MEDS: ACETAMINOPHEN/HYDROcodone 325 MG/5 MG TAB PO PRN (06:35)
[2017-06-16] MEDS: SODIUM CHLORIDE 0.9% FLUSH 10 ML FLUSH IV FLUSH SCH ×2 (07:43→21:09)
[2017-06-16] MEDS: DOCUSATE SODIUM 50 MG/SENNA 8.6 MG TAB PO SCH ×2 (07:43→21:09)
[2017-06-16] MEDS ORDERED: PHARMACY ORDERED LAB ONE (07:45)
[2017-06-16] MEDS ORDERED: LIDOCAINE HCL 1% 20 ML VIAL ONE (07:45)
[2017-06-16] MEDS ORDERED: MIDAZOLAM HCL 2 MG/2 ML VIAL ONE ×3 (07:55→09:11)
--- NOTE | 2017-06-16 08:56 | HHI.PR ---
Subjective Remarks Complaints of any his back after biopsy. He denies fever or chills. No nausea or vomiting no diarrhea or constipation. Objective Vitals Vital Signs Date Time Temp Pulse Resp B/P (MAP) Pulse Ox O2 Delivery O2 Flow Rate FiO2 06/16/17 08:00 49 18 117/73 (88) 99 06/16/17 05:00 97.4 49 16 114/74 (87) 99 06/16/17 00:30 98.2 64 16 105/67 (80) 96 06/15/17 20:30 98.4 57 16 107/59 (75) 99 06/15/17 15:42 51 18 135/79 (97) 100 06/15/17 12:00 98.0 55 18 106/56 (73) 97 I/O 06/15/17 06/15/17 06/15/17 06/16/17 06/16/17 06/16/17 07:00 15:00 23:00 07:00 15:00 23:00 Intake Total 50 ml 300 ml 240 ml Output Total 1 ml Balance 50 ml 299 ml 240 ml Intake Oral 240 ml IV Total 50 ml 300 ml Stool Total 1 ml # Voids 2 4 Result Diagram: 06/15/17 0433 06/15/17 0433 Imaging Last Impressions Thoracic Spine MRI 06/15/17 0000 Signed Impressions: Service Date/Time: June 13:43 - CONCLUSION: 1. Findings characteristic of discitis at T7-T8 level with paraspinal and epidural inflammatory changes. This would be accessible to percutaneous biopsy. Tae Pardo MD Chest CT 06/14/171811 Signed Impressions: Service Date/Time: Wednesday, June 14, 2017 18:49 - CONCLUSION: Abnormal appearance to the T8-9 mainly involving T8 vertebrae and paravertebral soft tissue process at this site highly suspicious for discitis and osteomyelitis in the appropriate clinical setting, however neoplastic etiologies are difficult to exclude. Page Barron MD Abdomen/Pelvis CT 06/14/171811 Signed Impressions: Service Date/Time: Wednesday, June 14, 2017 18:47 - CONCLUSION: Essentially unremarkable abdominal/pelvic study. Page Barron MD Chest X-Ray 06/14/17 0000 Signed Impressions: Service Date/Time: Wednesday, June 14, 2017 17:14 - CONCLUSION: 1. No acute cardiopulmonary disease. Tae Pardo MD Objective Remarks GENERAL: male sitting up in bed CARDIOVASCULAR: Regular rate and rhythm without murmurs, gallops, or rubs. RESPIRATORY: Clear to auscultation. Breath sounds equal bilaterally. No wheezes , rales, or rhonchi. GASTROINTESTINAL: Abdomen soft, non-tender, nondistended. No hepato-splenomegaly , or palpable masses. No guarding. MUSCULOSKELETAL: Extremities without clubbing, cyanosis, or edema. No joint tenderness, effusion, or edema noted. No calf tenderness. NEUROLOGICAL: Awake and alert. Cranial nerves II through XII intact. Motor and sensory within normal limits. Five out of 5 muscle strength in all muscle groups. Normal speech. A/P Assessment and Plan T8-9 discitis/osteomyelitis Chest CT revealed abnormal appearance to the T8-9 vertebrae and paravertebral soft tissue process highly suspicious for discitis and osteomyelitis No leukocytosis or signs of sepsis Blood cultures pending ESR 49, CRP 3.90 CT guided aspiration with routine/AFB/fungal clx, empiric abx after bx obtained. IR consulted Vancomycin/Zosyn Monitor for signs of sepsis Infectious disease consulted, ff Patient adamantly denies history of IV drug abuse, urine drug screen positive for opiates History of CVA Encouraged patient to resume his Plavix DVT ppx : SCDs Discussed with the patient, nurse Cristiane Barker MD Jun 16, 2017 08:56
[2017-06-16] MEDS ORDERED: THROMBIN (TOPICAL) 5,000 UNIT VIAL ONE (09:15)
--- NOTE | 2017-06-16 09:54 | RADRPT ---
EXAM DATE/TIME: 06/16/2017 09:41 [facility] COMPARISON: No previous studies available for comparison. INDICATIONS : Post needle biopsy of T-8 spinal lesion, chest and back pain, no shortness of breath MEDICAL HISTORY : Osteomyelitis. SURGICAL HISTORY : tumor removed from humeral head ENCOUNTER: Subsequent ACUITY: 3 weeks PAIN SCORE: 10/10 LOCATION: Bilateral chest FINDINGS: A single frontal expiratory view of the chest was performed. The lungs are symmetrically aerated and clear. No evidence of pneumothorax. Mediastinal structures are in the midline. The cardio-mediastinal contours and bronchopulmonary markings are unremarkable for an expiratory exam . Degenerative changes are noted involving the right shoulder joint. CONCLUSION: 1. No acute cardiopulmonary disease. 2. No pneumothorax noted. 3. Degenerative changes involving the right shoulder joint. Mike Mast MD on June 16, 2017 at 9:50 Board Certified Radiologist. This report was verified electronically.
--- NOTE | 2017-06-16 12:04 | RADRPT ---
EXAM DATE/TIME: 06/16/2017 11:32 [facility] COMPARISON: CHEST EXPIRATION ONLY, June 16, 2017, 9:41. INDICATIONS : Post needle biopsy of T-8 spinal lesion, chest and back pain, no shortness of breath. MEDICAL HISTORY : Osteomyelitis SURGICAL HISTORY : tumor removed from humeral head ENCOUNTER: Initial ACUITY: 1 day PAIN SCORE: 3/10 LOCATION: Bilateral chest FINDINGS: A single view of the chest demonstrates the lungs to be symmetrically aerated without evidence of mas s, infiltrate or effusion. The cardiomediastinal contours are unremarkable. Degenerative changes are again noted within the right shoulder. CONCLUSION: No acute cardiopulmonary disease. Mike Mast MD on June 16, 2017 at 12:01 Board Certified Radiologist. This report was verified electronically.
--- NOTE | 2017-06-16 14:09 | RADRPT ---
EXAM DATE/TIME: 06/16/2017 08:51 [facility] COMPARISON: No previous studies available for comparison. INDICATIONS : Thoracic paraspinal mass. SEDATION TIME: 45 minutes MEDICATION(S): 1.) 4.5 mg midazolam (Versed) IV 2.) 225 mcg fentanyl (Sublimaze) IV DEVICE(S): 1.) 17 gauge coaxial introducer 2.) 18 gauge Knight blunt needle Fluid was sent for laboratory ordered studies. MEDICAL HISTORY : Stroke. SURGICAL HISTORY : None. ENCOUNTER: Initial ACUITY: 1 day PAIN SCORE: 6/10 LOCATION: back. PROCEDURE : CT guided aspiration of paravertebral collection The risks, benefits and alternatives to the procedure were explained and verbal and written consent w as obtained. Using automated exposure control and adjustment of the mA and/or kV according to patien t size, radiation dose was kept as low as reasonably achievable to obtain optimal diagnostic quality images. The site was prepped in sterile fashion. Full sterile technique was used, including cap, ma sk, sterile gloves and gown and a large sterile sheet. Hand hygiene and 2% chlorhexidine and/or beta dine/alcohol prep was utilized per protocol for cutaneous antisepsis. The skin and subcutaneous tiss ues were infiltrated with local anesthetic solution. DICOM format image data is available electronic ally for review and comparison. A 17 gauge coaxial was chest the right paravertebral region with CT guidance. Initially, some bleedin g occurred through the coaxial needle. After several minutes this bleeding ceased. An 18 gauge Hawkin s blunt needle was passed through the coaxial system into the paravertebral collection and small amou nt of bloody fluid was aspirated and sent for culture and sensitivity. A mixture of thrombin and Gelf oam was injected through the coaxial needle at the end of the examination to ensure no further bleedi ng. The patient tolerated the procedure well without significant complication. CONCLUSION: Uncomplicated CT-guided aspiration of right paravertebral collection as above. Mike Mast MD on June 16, 2017 at 14:02 Board Certified Radiologist. This report was verified electronically.
[2017-06-16] MEDS ORDERED: GELATIN 12 MM/7 MM FOAM ONE (14:57)
[2017-06-16] MEDS ORDERED: Vancomycin Consult Pharmacy 1 EA OTHER SCH (15:30)
[2017-06-16] MEDS: CEFEPIME INJ 2,000 MG in SODIUM CHLORIDE 0.9% INJ 100 ML IV SCH (16:57)
[2017-06-16] MEDS: VANCOMYCIN 1,500 MG/NS 500 ML IV SCH ×2 (16:57)
--- NOTE | 2017-06-16 17:34 | HHI.IDPN ---
Subjective Subjective Remarks Sp CT guided aspiration of bloody fluid collection clx , stains still P no fever back pain not worxse ambulates w/o assistance no new problems Antibiotics none Allergies: Coded Allergies: No Known Allergies (Unverified , 06/14/17) Objective . Vital Signs Date Time Temp Pulse Resp B/P (MAP) Pulse Ox O2 Delivery O2 Flow Rate FiO2 06/16/17 16:00 55 18 111/69 (83) 98 06/16/17 12:00 98.8 49 20 132/64 (86) 100 06/16/17 10:30 59 18 123/81 (95) 94 06/16/17 10:00 53 18 123/84 (97) 94 06/16/17 09:45 98.4 53 18 129/87 (101) 94 06/16/17 08:00 49 18 117/73 (88) 99 06/16/17 05:00 97.4 49 16 114/74 (87) 99 06/16/17 00:30 98.2 64 16 105/67 (80) 96 06/15/17 20:30 98.4 57 16 107/59 (75) 99 06/16/17 06/16/17 06/17/17 14:59 22:59 06:59 # Voids 2 # Bowel Movements 0 . Laboratory Tests Test 06/14/17 18:30 06/15/17 04:33 White Blood Count 8.8 TH/MM3 4.8 TH/MM3 Red Blood Count 4.49 MIL/MM3 3.79 MIL/MM3 Hemoglobin 12.8 GM/DL 10.4 GM/DL Hematocrit 36.7 % 30.6 % Mean Corpuscular Volume 81.8 FL 80.7 FL Mean Corpuscular Hemoglobin 28.5 PG 27.5 PG Mean Corpuscular Hemoglobin Concent 34.8 % 34.1 % Red Cell Distribution Width 13.2 % 12.9 % Platelet Count 447 TH/MM3 323 TH/MM3 Mean Platelet Volume 6.3 FL 6.4 FL Neutrophils (%) (Auto) 71.8 % 53.6 % Lymphocytes (%) (Auto) 20.6 % 34.9 % Monocytes (%) (Auto) 6.8 % 9.9 % Eosinophils (%) (Auto) 0.5 % 1.2 % Basophils (%) (Auto) 0.3 % 0.4 % Neutrophils # (Auto) 6.3 TH/MM3 2.6 TH/MM3 Lymphocytes # (Auto) 1.8 TH/MM3 1.7 TH/MM3 Monocytes # (Auto) 0.6 TH/MM3 0.5 TH/MM3 Eosinophils # (Auto) 0.0 TH/MM3 0.1 TH/MM3 Basophils # (Auto) 0.0 TH/MM3 0.0 TH/MM3 CBC Comment DIFF FINAL DIFF FINAL Differential Comment Erythrocyte Sedimentation Rate 49 mm/hr Laboratory Tests Test 06/14/17 18:30 06/15/17 04:33 Blood Urea Nitrogen 14 MG/DL 8 MG/DL Creatinine 0.71 MG/DL 0.61 MG/DL Random Glucose 88 MG/DL 98 MG/DL Total Protein 9.2 GM/DL Albumin 3.5 GM/DL Calcium Level 9.2 MG/DL 8.6 MG/DL Alkaline Phosphatase 64 U/L Aspartate Amino Transf (AST/SGOT) 12 U/L Alanine Aminotransferase (ALT/SGPT) 10 U/L Total Bilirubin 0.3 MG/DL Sodium Level 133 MEQ/L 138 MEQ/L Potassium Level 3.8 MEQ/L 3.4 MEQ/L Chloride Level 98 MEQ/L 102 MEQ/L Carbon Dioxide Level 29.4 MEQ/L 28.9 MEQ/L Anion Gap 6 MEQ/L 7 MEQ/L Estimat Glomerular Filtration Rate 126 ML/MIN 150 ML/MIN Lactic Acid Level 0.6 mmol/L C-Reactive Protein 3.90 MG/DL Lipase 167 U/L Microbiology Date/Time Source Procedure Growth Status 06/14/17 20:20 Blood Peripheral Aerobic Blood Culture - Preliminary NO GROWTH IN 2 DAYS Resulted 06/14/17 20:20 Blood Peripheral Anaerobic Blood Culture - Preliminary NO GROWTH IN 2 DAYS Resulted 06/14/17 20:15 Blood Peripheral Aerobic Blood Culture - Preliminary NO GROWTH IN 2 DAYS Resulted 06/14/17 20:15 Blood Peripheral Anaerobic Blood Culture - Preliminary NO GROWTH IN 2 DAYS Resulted 06/16/17 09:31 Wound Lung Fungal Smear Pending Received 06/16/17 09:31 Wound Lung Fungal Culture Pending Received 06/16/17 09:31 Wound Lung Acid Fast Stain Pending Received 06/16/17 09:31 Wound Lung Mycobacterial Culture Pending Received 06/16/17 09:31 Wound Lung Gram Stain Pending Received 06/16/17 09:31 Wound Lung Wound Culture Pending Received Imaging Last Impressions Chest X-Ray 06/16/17 1130 Signed Impressions: Service Date/Time: Friday, June 16, 2017 11:32 - CONCLUSION: No acute cardiopulmonary disease. Mike Mast MD Needle Aspiration CT 06/16/17 0000 Signed Impressions: Service Date/Time: Friday, June 16, 2017 08:51 - CONCLUSION: Uncomplicated CT-guided aspiration of right paravertebral collection as above. Mike Mast MD Thoracic Spine MRI 06/15/17 0000 Signed Impressions: Service Date/Time: June 13:43 - CONCLUSION: 1. Findings characteristic of discitis at T7-T8 level with paraspinal and epidural inflammatory changes. This would be accessible to percutaneous biopsy. Tae Pardo MD Chest CT 06/14/171811 Signed Impressions: Service Date/Time: Wednesday, June 14, 2017 18:49 - CONCLUSION: Abnormal appearance to the T8-9 mainly involving T8 vertebrae and paravertebral soft tissue process at this site highly suspicious for discitis and osteomyelitis in the appropriate clinical setting, however neoplastic etiologies are difficult to exclude. Page Barron MD Abdomen/Pelvis CT 06/14/171811 Signed Impressions: Service Date/Time: Wednesday, June 14, 2017 18:47 - CONCLUSION: Essentially unremarkable abdominal/pelvic study. Page Barron MD Physical Exam CONSTITUTIONAL/GENERAL: This is an adequately nourished patient, in no apparent distress. TUBES/LINES/DRAINS: SKIN: No jaundice, rashes, or lesions. NECK: Trachea midline. Supple, nontender. No palpable thyroid enlargement or nodularity. CARDIOVASCULAR: Regular rate and rhythm without murmurs, gallops, or rubs. No JVD. Peripheral pulses symmetric. RESPIRATORY/CHEST: Symmetric, unlabored respirations. Clear to auscultation. Breath sounds equal bilaterally. No wheezes, rales, or rhonchi. GASTROINTESTINAL: Abdomen soft, non-tender, nondistended. No hepato-splenomegaly , or palpable masses. No guarding. Bowel sounds present. MUSCULOSKELETAL: Extremities without clubbing, cyanosis, or edema. No joint tenderness or effusion noted. No calf tenderness. No mottling or clubbing. BACK: no obvious deformities Not tender to palpation over spine NEUROLOGICAL: Awake and alert. Motor and sensory grossly within normal limits. Follows commands. Cognitively sharp. Moves all extremities. PSYCHIATRIC: No obvious anxiety/depression. no apparent hallucinations or other psychotic thought process. Assessment & Plan Remarks diskitis/ osteomyelitis of T spine MRI showed discitis at T7-T8 level with paraspinal and epidural inflammatory changes sp CT guided aspiration, clx P start on empiric abx (vanco, cefepime); will adjust per clx April Oates MD Jun 16, 2017 17:34
--- NOTE | 2017-06-16 23:39 | EKG ---
Date Performed: 06/14/2017 Time Performed: 17:26:46 PTAGE: 36 years EKG: Sinus rhythm NORMAL ECG NO PREVIOUS TRACING DOCTOR: Damaris Montalvo Interpretating Date/Time 06/16/2017 23:39:06
[2017-06-17] MEDS: MORPHINE SULFATE 2 MG/ML INJ IV PUSH PRN ×6 (00:38→22:24)
[2017-06-17 00:40] VITALS: BP 127/81; PULSE 57; RESP 20; TEMP 98.1; O2SAT 100
[2017-06-17] MEDS: ACETAMINOPHEN/HYDROcodone 325 MG/7.5 MG TAB PO PRN ×4 (03:51→21:40)
[2017-06-17 04:15] VITALS: BP 120/80; PULSE 56; RESP 16; TEMP 97; O2SAT 100
[2017-06-17] MEDS: VANCOMYCIN 1,500 MG/NS 500 ML IV SCH ×4 (05:10→16:53)
[2017-06-17] MEDS ORDERED: PHARMACY ORDERED LAB ONE (05:45)
[2017-06-17 08:44] VITALS: BP 128/79; PULSE 61; RESP 20; TEMP 97.8; O2SAT 100
[2017-06-17] MEDS: CEFEPIME INJ 2,000 MG in SODIUM CHLORIDE 0.9% INJ 100 ML IV SCH ×4 (09:02→15:35)
[2017-06-17] MEDS: SODIUM CHLORIDE 0.9% FLUSH 10 ML FLUSH IV FLUSH SCH ×2 (09:02→21:40)
[2017-06-17] MEDS: DOCUSATE SODIUM 50 MG/SENNA 8.6 MG TAB PO SCH ×2 (09:11→21:40)
[2017-06-17 11:45] VITALS: BP 115/70; PULSE 55; RESP 20; TEMP 98.8; O2SAT 99
--- NOTE | 2017-06-17 13:10 | HHI.PR ---
Subjective Remarks Follow up discitis/osteomyelitis. Patient reporting left ribcage pain that radiates around his left side. Pain had been improving, but worsened after he sneezed today. No chest pain, dyspnea, nausea, vomiting, diarrhea. Objective Vitals Vital Signs Date Time Temp Pulse Resp B/P (MAP) Pulse Ox O2 Delivery O2 Flow Rate FiO2 06/17/17 11:45 98.8 55 20 115/70 (85) 99 06/17/17 09:08 14 06/17/17 08:44 97.8 61 20 128/79 (95) 100 06/17/17 04:15 97.0 56 16 120/80 (93) 100 06/17/17 00:40 98.1 57 20 127/81 (96) 100 06/16/17 20:30 98.5 51 17 132/84 (100) 99 06/16/17 16:00 55 18 111/69 (83) 98 I/O 06/16/17 06/16/17 06/16/17 06/17/17 06/17/17 06/17/17 07:00 15:00 23:00 07:00 15:00 23:00 Intake Total 240 ml 850 ml 925 ml Balance 240 ml 850 ml 925 ml Intake Oral 240 ml 850 ml 925 ml # Voids 4 2 1 3 # Bowel Movements 0 0 0 Result Diagram: 06/15/17 0433 06/15/17 0433 Imaging Last Impressions Chest X-Ray 06/16/17 1130 Signed Impressions: Service Date/Time: Friday, June 16, 2017 11:32 - CONCLUSION: No acute cardiopulmonary disease. Mike Mast MD Needle Aspiration CT 06/16/17 0000 Signed Impressions: Service Date/Time: Friday, June 16, 2017 08:51 - CONCLUSION: Uncomplicated CT-guided aspiration of right paravertebral collection as above. Mike Mast MD Thoracic Spine MRI 06/15/17 0000 Signed Impressions: Service Date/Time: June 13:43 - CONCLUSION: 1. Findings characteristic of discitis at T7-T8 level with paraspinal and epidural inflammatory changes. This would be accessible to percutaneous biopsy. Tae Pardo MD Chest CT 06/14/17 1812 Signed Impressions: Service Date/Time: Wednesday, June 14, 2017 18:49 - CONCLUSION: Abnormal appearance to the T8-9 mainly involving T8 vertebrae and paravertebral soft tissue process at this site highly suspicious for discitis and osteomyelitis in the appropriate clinical setting, however neoplastic etiologies are difficult to exclude. Page Barron MD Abdomen/Pelvis CT 06/14/171811 Signed Impressions: Service Date/Time: Wednesday, June 14, 2017 18:47 - CONCLUSION: Essentially unremarkable abdominal/pelvic study. Page Barron MD Objective Remarks General: No acute distress. Heart: Regular rate and rhythm. No murmur. Lungs: Clear to auscultation bilaterally. No wheezes, rales, or rhonchi. Breathing is nonlabored. Abdomen: Soft, nontender, nondistended. Extremities: No lower extremity edema. Psych: Alert and oriented. Procedures 06/16/17 CT-guided aspiration of right paravertebral fluid collection Urinary Catheter: No Vascular Central Line Catheter: No A/P Assessment and Plan 1. T8-T9 discitis/osteomyelitis: Appreciate infectious disease recommendations. Continue empiric antibiotics. Awaiting cultures from CT-guided fluid aspiration. 2. History of CVA: Plavix on hold for procedure. 3. DVT prophylaxis: SCDs. Jitendra Freeman MD Jun 17, 2017 13:10
[2017-06-17 16:08] VITALS: BP 131/74; PULSE 54; RESP 20; TEMP 99; O2SAT 100
[2017-06-17 20:00] VITALS: BP 139/82; PULSE 88; RESP 20; TEMP 97.3; O2SAT 97
[2017-06-18] VITALS: BP 111/72; PULSE 52; RESP 20; TEMP 98.2; O2SAT 97
[2017-06-18] MEDS: CEFEPIME INJ 2,000 MG in SODIUM CHLORIDE 0.9% INJ 100 ML IV SCH ×3 (00:59→14:57)
[2017-06-18] MEDS: MORPHINE SULFATE 2 MG/ML INJ IV PUSH PRN ×5 (01:35→20:30)
[2017-06-18 04:00] VITALS: BP 134/62; PULSE 52; RESP 18; TEMP 98.5; O2SAT 99
[2017-06-18] MEDS ORDERED: PHARMACY ORDERED LAB ONE (04:45)
[2017-06-18 05:06] LABS: CREATININE 0.71 MG/DL (0.60-1.30)
[2017-06-18 05:07] LABS: VANCOMYCIN TROUGH 9.3 MCG/ML (5.0-10.0)
[2017-06-18] MEDS: ACETAMINOPHEN/HYDROcodone 325 MG/7.5 MG TAB PO PRN ×5 (05:46→23:26)
[2017-06-18] MEDS: VANCOMYCIN 1,500 MG/NS 500 ML IV SCH ×2 (05:47)
[2017-06-18 08:18] VITALS: BP 113/57; PULSE 50; RESP 20; TEMP 99.2; O2SAT 98
[2017-06-18] MEDS: SODIUM CHLORIDE 0.9% FLUSH 10 ML FLUSH IV FLUSH SCH ×2 (09:00→21:00)
[2017-06-18] MEDS: DOCUSATE SODIUM 50 MG/SENNA 8.6 MG TAB PO SCH ×2 (09:26→21:00)
[2017-06-18 12:30] VITALS: BP 102/57; PULSE 61; RESP 20; TEMP 98.9; O2SAT 98
--- NOTE | 2017-06-18 13:22 | HHI.PR ---
Subjective Remarks Follow up discitis/osteomyelitis. Pain is better today. Denies chest pain, dyspnea, nausea, vomiting, diarrhea. Objective Vitals Vital Signs Date Time Temp Pulse Resp B/P (MAP) Pulse Ox O2 Delivery O2 Flow Rate FiO2 06/18/17 12:30 98.9 61 20 102/57 (72) 98 06/18/17 08:18 99.2 50 20 113/57 (75) 98 06/18/17 04:00 98.5 52 18 134/62 (86) 99 06/18/17 00:00 98.2 52 20 111/72 (85) 97 06/17/17 20:00 97.3 88 20 139/82 (101) 97 06/17/17 18:30 15 06/17/17 16:08 99.0 54 20 131/74 (93) 100 I/O 06/17/17 06/17/17 06/17/17 06/18/17 06/18/17 06/18/17 07:00 15:00 23:00 07:00 15:00 23:00 Intake Total 925 ml 480 ml 100 ml 350 ml 500 ml Output Total 400 ml Balance 925 ml 480 ml 100 ml -50 ml 500 ml Intake Oral 925 ml 480 ml 350 ml IV Total 100 ml 500 ml Output Urine Total 400 ml # Voids 3 3 2 3 # Bowel Movements 0 0 1 Result Diagram: 06/15/17 0433 06/18/17 0440 Imaging Last Impressions Chest X-Ray 06/16/17 1130 Signed Impressions: Service Date/Time: Friday, June 16, 2017 11:32 - CONCLUSION: No acute cardiopulmonary disease. Mike Mast MD Needle Aspiration CT 06/16/17 0000 Signed Impressions: Service Date/Time: Friday, June 16, 2017 08:51 - CONCLUSION: Uncomplicated CT-guided aspiration of right paravertebral collection as above. Mike Mast MD Thoracic Spine MRI 06/15/17 0000 Signed Impressions: Service Date/Time: June 13:43 - CONCLUSION: 1. Findings characteristic of discitis at T7-T8 level with paraspinal and epidural inflammatory changes. This would be accessible to percutaneous biopsy. Tae Pardo MD Chest CT 06/14/17 1812 Signed Impressions: Service Date/Time: Wednesday, June 14, 2017 18:49 - CONCLUSION: Abnormal appearance to the T8-9 mainly involving T8 vertebrae and paravertebral soft tissue process at this site highly suspicious for discitis and osteomyelitis in the appropriate clinical setting, however neoplastic etiologies are difficult to exclude. Page Barron MD Abdomen/Pelvis CT 06/14/171811 Signed Impressions: Service Date/Time: Wednesday, June 14, 2017 18:47 - CONCLUSION: Essentially unremarkable abdominal/pelvic study. Page Barron MD Objective Remarks General: No acute distress. Heart: Regular rate and rhythm. No murmur. Lungs: Clear to auscultation bilaterally. No wheezes, rales, or rhonchi. Breathing is nonlabored. Abdomen: Soft, nontender, nondistended. Extremities: No lower extremity edema. Psych: Alert and oriented. Procedures 06/16/17 CT-guided aspiration of right paravertebral fluid collection Urinary Catheter: No Vascular Central Line Catheter: No A/P Assessment and Plan 1. T8-T9 discitis/osteomyelitis: Appreciate infectious disease recommendations. Continue empiric antibiotics. Cultures from CT-guided fluid aspiration are negative so far. 2. History of CVA: Plavix on hold for procedure. 3. DVT prophylaxis: SCDs. Jitendra Freeman MD Jun 18, 2017 13:22
[2017-06-18] MEDS: VANCOMYCIN INJ 1,250 MG in SODIUM CHLOR 0.9% 250 ML INJ 250 ML IV SCH ×2 (14:56→21:00)
[2017-06-18 16:22] VITALS: BP 105/53; PULSE 63; RESP 20; TEMP 98.6; O2SAT 100
[2017-06-18 20:00] VITALS: BP 103/61; PULSE 55; RESP 18; TEMP 98.4; O2SAT 98
[2017-06-19 00:50] VITALS: BP 130/60; PULSE 60; RESP 17; TEMP 98.7; O2SAT 98
[2017-06-19] MEDS: MORPHINE SULFATE 2 MG/ML INJ IV PUSH PRN ×6 (00:54→20:47)
[2017-06-19] MEDS: CEFEPIME INJ 2,000 MG in SODIUM CHLORIDE 0.9% INJ 100 ML IV SCH ×4 (00:54→23:39)
[2017-06-19 04:50] VITALS: BP 121/71; PULSE 54; RESP 17; TEMP 98.1; O2SAT 98
[2017-06-19] MEDS: ACETAMINOPHEN/HYDROcodone 325 MG/7.5 MG TAB PO PRN ×2 (05:25→23:06)
[2017-06-19] MEDS: VANCOMYCIN INJ 1,250 MG in SODIUM CHLOR 0.9% 250 ML INJ 250 ML IV SCH (05:32)
[2017-06-19 07:51] LABS: AUTOMATED NEUTROPHIL # 3.8 TH/MM3 (1.8-7.7); BASOPHIL % 0.4 % (0.0-2.0); EOSINOPHIL # 0.3 TH/MM3 (0-0.4); EOSINOPHIL % 5.8 % (0.0-4.0); HEMATOCRIT 34.6 % (39.0-51.0); HEMOGLOBIN 11.4 GM/DL (13.0-17.0); LYMPH % 22.7 % (9.0-44.0); LYMPHOCYTE # 1.4 TH/MM3 (1.0-4.8); MEAN CELL VOLUME 81.1 FL (80.0-100.0); MEAN CORPUSCULAR HEMOGLOBIN 26.8 PG (27.0-34.0); MEAN CORPUSCULAR HGB CONC 33.1 % (32.0-36.0); MEAN PLATELET VOLUME 6.3 FL (7.0-11.0); MONO % 7.2 % (0.0-8.0); MONOCYTE # 0.4 TH/MM3 (0-0.9); NEUT % 63.9 % (16.0-70.0); PLATELET COUNT 346 TH/MM3 (150-450); RED BLOOD COUNT 4.26 MIL/MM3 (4.50-5.90); RED CELL DISTRIBUTION WIDTH 13.2 % (11.6-17.2)
[2017-06-19 08:08] LABS: BICARBONATE 28.4 MEQ/L (21.0-32.0); CALCIUM 8.7 MG/DL (8.5-10.1); CREATININE 0.6 MG/DL (0.60-1.30)
[2017-06-19 08:15] VITALS: BP 118/76; PULSE 58; RESP 18; TEMP 97.6; O2SAT 98
[2017-06-19] MEDS: SODIUM CHLORIDE 0.9% FLUSH 10 ML FLUSH IV FLUSH SCH ×2 (08:57→21:29)
[2017-06-19] MEDS: DOCUSATE SODIUM 50 MG/SENNA 8.6 MG TAB PO SCH ×2 (08:59→20:51)
[2017-06-19] MEDS: ACETAMINOPHEN/HYDROcodone 325 MG/5 MG TAB PO PRN ×2 (10:43→18:11)
[2017-06-19 12:06] VITALS: BP 114/69; PULSE 61; RESP 18; TEMP 98.6; O2SAT 100
--- NOTE | 2017-06-19 12:32 | HHI.IDPN ---
Subjective Subjective Remarks Sp CT guided aspiration of bloody fluid collection clx , neagative - final no fever back pain improved, moved more to antrerior lowert chest area ambulates w/o assistance reports no new problems Antibiotics vancomycin cefepime Allergies: Coded Allergies: No Known Allergies (Unverified , 06/14/17) Objective . Vital Signs Date Time Temp Pulse Resp B/P (MAP) Pulse Ox O2 Delivery O2 Flow Rate FiO2 06/19/17 12:06 98.6 61 18 114/69 (84) 100 06/19/17 08:15 97.6 58 18 118/76 (90) 98 06/19/17 04:50 98.1 54 17 121/71 (88) 98 06/19/17 00:50 98.7 60 17 130/60 (83) 98 06/18/17 20:00 98.4 55 18 103/61 (75) 98 06/18/17 16:22 98.6 63 20 105/53 (70) 100 06/18/17 16:18 15 06/18/17 12:30 98.9 61 20 102/57 (72) 98 . Laboratory Tests Test 06/19/17 07:22 White Blood Count 6.0 TH/MM3 Red Blood Count 4.26 MIL/MM3 Hemoglobin 11.4 GM/DL Hematocrit 34.6 % Mean Corpuscular Volume 81.1 FL Mean Corpuscular Hemoglobin 26.8 PG Mean Corpuscular Hemoglobin Concent 33.1 % Red Cell Distribution Width 13.2 % Platelet Count 346 TH/MM3 Mean Platelet Volume 6.3 FL Neutrophils (%) (Auto) 63.9 % Lymphocytes (%) (Auto) 22.7 % Monocytes (%) (Auto) 7.2 % Eosinophils (%) (Auto) 5.8 % Basophils (%) (Auto) 0.4 % Neutrophils # (Auto) 3.8 TH/MM3 Lymphocytes # (Auto) 1.4 TH/MM3 Monocytes # (Auto) 0.4 TH/MM3 Eosinophils # (Auto) 0.3 TH/MM3 Basophils # (Auto) 0.0 TH/MM3 CBC Comment DIFF FINAL Differential Comment Laboratory Tests Test 06/18/17 04:40 06/19/17 07:22 Creatinine 0.71 MG/DL 0.60 MG/DL Estimat Glomerular Filtration Rate 126 ML/MIN 153 ML/MIN Blood Urea Nitrogen 11 MG/DL Random Glucose 84 MG/DL Calcium Level 8.7 MG/DL Sodium Level 135 MEQ/L Potassium Level 4.2 MEQ/L Chloride Level 102 MEQ/L Carbon Dioxide Level 28.4 MEQ/L Anion Gap 5 MEQ/L Imaging Last Impressions Chest X-Ray 06/16/17 1130 Signed Impressions: Service Date/Time: Friday, June 16, 2017 11:32 - CONCLUSION: No acute cardiopulmonary disease. Mike Mast MD Needle Aspiration CT 06/16/17 0000 Signed Impressions: Service Date/Time: Friday, June 16, 2017 08:51 - CONCLUSION: Uncomplicated CT-guided aspiration of right paravertebral collection as above. Mike Mast MD Thoracic Spine MRI 06/15/17 0000 Signed Impressions: Service Date/Time: June 13:43 - CONCLUSION: 1. Findings characteristic of discitis at T7-T8 level with paraspinal and epidural inflammatory changes. This would be accessible to percutaneous biopsy. Tae Pardo MD Chest CT 06/14/171811 Signed Impressions: Service Date/Time: Wednesday, June 14, 2017 18:49 - CONCLUSION: Abnormal appearance to the T8-9 mainly involving T8 vertebrae and paravertebral soft tissue process at this site highly suspicious for discitis and osteomyelitis in the appropriate clinical setting, however neoplastic etiologies are difficult to exclude. Page Barron MD Abdomen/Pelvis CT 06/14/171811 Signed Impressions: Service Date/Time: Wednesday, June 14, 2017 18:47 - CONCLUSION: Essentially unremarkable abdominal/pelvic study. Page Barron MD Physical Exam CONSTITUTIONAL/GENERAL: This is an adequately nourished patient, in no apparent distress. TUBES/LINES/DRAINS: SKIN: No jaundice, rashes, or lesions. NECK: Trachea midline. Supple, nontender. No palpable thyroid enlargement or nodularity. CARDIOVASCULAR: Regular rate and rhythm without murmurs, gallops, or rubs. No JVD. Peripheral pulses symmetric. RESPIRATORY/CHEST: Symmetric, unlabored respirations. Clear to auscultation. Breath sounds equal bilaterally. No wheezes, rales, or rhonchi. GASTROINTESTINAL: Abdomen soft, non-tender, nondistended. No hepato-splenomegaly , or palpable masses. No guarding. Bowel sounds present. MUSCULOSKELETAL: Extremities without clubbing, cyanosis, or edema. No joint tenderness or effusion noted. No calf tenderness. No mottling or clubbing. BACK: no obvious deformities Not tender to palpation over spine NEUROLOGICAL: Awake and alert. Motor and sensory grossly within normal limits. Follows commands. Cognitively sharp. Moves all extremities. PSYCHIATRIC: No obvious anxiety/depression. no apparent hallucinations or other psychotic thought process. Assessment & Plan Remarks diskitis/ osteomyelitis of T spine MRI showed discitis at T7-T8 level with paraspinal and epidural, inflammatory changes sp CT guided aspiration, clx negative cont empiric abx (vanco, cefepime) will repeat clx and obtain bx under fluoroscopy dw Helga Hawk RN, Alexandra A. MD Jun 19, 2017 12:32
[2017-06-19] MEDS ORDERED: PHARMACY ORDERED LAB ONE (12:45)
--- NOTE | 2017-06-19 14:00 | HHI.PR ---
Subjective Remarks Follow up back pain. Patient still having pain in left ribcage radiating around from the back. No change. Controlled with pain medication. Objective Vitals Vital Signs Date Time Temp Pulse Resp B/P (MAP) Pulse Ox O2 Delivery O2 Flow Rate FiO2 06/19/17 12:06 98.6 61 18 114/69 (84) 100 06/19/17 08:15 97.6 58 18 118/76 (90) 98 06/19/17 04:50 98.1 54 17 121/71 (88) 98 06/19/17 00:50 98.7 60 17 130/60 (83) 98 06/18/17 20:00 98.4 55 18 103/61 (75) 98 06/18/17 16:22 98.6 63 20 105/53 (70) 100 06/18/17 16:18 15 I/O 06/18/17 06/18/17 06/18/17 06/19/17 06/19/17 06/19/17 07:00 15:00 23:00 07:00 15:00 23:00 Intake Total 350 ml 980 ml 240 ml Output Total 400 ml Balance -50 ml 980 ml 240 ml Intake Oral 350 ml 480 ml 240 ml IV Total 500 ml Output Urine Total 400 ml # Voids 6 2 4 # Bowel Movements 0 2 1 Result Diagram: 06/19/1722 06/19/17 0722 Imaging Last Impressions Chest X-Ray 06/16/17 1130 Signed Impressions: Service Date/Time: Friday, June 16, 2017 11:32 - CONCLUSION: No acute cardiopulmonary disease. Mike Mast MD Needle Aspiration CT 06/16/17 0000 Signed Impressions: Service Date/Time: Friday, June 16, 2017 08:51 - CONCLUSION: Uncomplicated CT-guided aspiration of right paravertebral collection as above. Mike Mast MD Thoracic Spine MRI 06/15/17 0000 Signed Impressions: Service Date/Time: June 13:43 - CONCLUSION: 1. Findings characteristic of discitis at T7-T8 level with paraspinal and epidural inflammatory changes. This would be accessible to percutaneous biopsy. Tae Pardo MD Chest CT 06/14/17 1812 Signed Impressions: Service Date/Time: Wednesday, June 14, 2017 18:49 - CONCLUSION: Abnormal appearance to the T8-9 mainly involving T8 vertebrae and paravertebral soft tissue process at this site highly suspicious for discitis and osteomyelitis in the appropriate clinical setting, however neoplastic etiologies are difficult to exclude. Page Barron MD Abdomen/Pelvis CT 06/14/172 Signed Impressions: Service Date/Time: Wednesday, June 14, 2017 18:47 - CONCLUSION: Essentially unremarkable abdominal/pelvic study. Page Barron MD Objective Remarks General: No acute distress. Heart: Regular rate and rhythm. No murmur. Lungs: Clear to auscultation bilaterally. No wheezes, rales, or rhonchi. Breathing is nonlabored. Abdomen: Soft, nontender, nondistended. Extremities: No lower extremity edema. Psych: Alert and oriented. Procedures 06/16/17 CT-guided aspiration of right paravertebral fluid collection Urinary Catheter: No Vascular Central Line Catheter: No A/P Assessment and Plan 1. T8-T9 discitis/osteomyelitis: Appreciate infectious disease recommendations. Continue empiric antibiotics. Cultures from CT-guided fluid aspiration are negative. Disc aspiration and biopsy ordered by infectious disease. 2. History of CVA: Plavix on hold for procedure. 3. DVT prophylaxis: SCDs. Discussed with Dr. Oates. Jitendra Freeman MD Jun 19, 2017 14:00
[2017-06-19 16:39] VITALS: BP 112/67; PULSE 63; RESP 18; TEMP 98.7; O2SAT 98
[2017-06-19] MEDS ORDERED: VANCOMYCIN 1,000 MG/NS 250 ML IV SCH ×2 (17:00)
[2017-06-19 20:00] VITALS: BP 114/69; PULSE 50; RESP 18; TEMP 98; O2SAT 97
[2017-06-19] MEDS: VANCOMYCIN 1,000 MG/NS 250 ML IV SCH ×2 (21:29)
[2017-06-20] VITALS (9 sets, daily range): BP systolic 93–132; BP diastolic 51–80; PULSE 50–70; RESP 18; TEMP 97.5–99.2; O2SAT 95–100
[2017-06-20] MEDS: MORPHINE SULFATE 2 MG/ML INJ IV PUSH PRN ×5 (00:19→22:06)
[2017-06-20] MEDS: ACETAMINOPHEN/HYDROcodone 325 MG/7.5 MG TAB PO PRN ×2 (04:16→21:06)
[2017-06-20] MEDS: VANCOMYCIN 1,000 MG/NS 250 ML IV SCH ×8 (04:18→21:06)
[2017-06-20 07:40] LABS: CREATININE 0.69 MG/DL (0.60-1.30)
[2017-06-20] MEDS: DOCUSATE SODIUM 50 MG/SENNA 8.6 MG TAB PO SCH ×2 (08:43→21:06)
[2017-06-20] MEDS: CEFEPIME INJ 2,000 MG in SODIUM CHLORIDE 0.9% INJ 100 ML IV SCH ×2 (08:47→16:13)
[2017-06-20] MEDS: SODIUM CHLORIDE 0.9% FLUSH 10 ML FLUSH IV FLUSH SCH ×2 (08:47→21:06)
[2017-06-20] MEDS ORDERED: MIDAZOLAM HCL 2 MG/2 ML VIAL ONE ×2 (10:53)
[2017-06-20] MEDS ORDERED: PHARMACY ORDERED LAB ONE (11:45)
--- NOTE | 2017-06-20 11:50 | PD.RAD ---
Post Procedure Progress Note Pre Procedure Diagnosis: (1) Discitis of thoracic region (2) Osteomyelitis of thoracic region Post Procedure Diagnosis: (1) Discitis of thoracic region (2) Osteomyelitis of thoracic region Procedure Date: Jun 20, 2017 Supervising Radiologist: Sanford Blanc Proceduralist/Assist: Vishnu Graves, RT(R), Sis Knowles RT(R) Anesthesia: Conscious Sedation Plan of Activity Patient to Unit: [facility] Patient Condition: Good See PACS Report for procedural detail/treatment Sanford Blanc MD Jun 20, 2017 11:50
--- NOTE | 2017-06-20 13:07 | RADRPT ---
EXAM DATE/TIME: 06/20/2017 12:26 [facility] COMPARISON: No previous studies available for comparison. INDICATIONS : Patient presents with discitis and osteomyelitis in need of disc aspiration and biopsy for pathology. MEDICAL HISTORY : Ischemic stroke in 2010 - patient quit taking his Plavix approximately 2-3 years ago SURGICAL HISTORY : Right shoulder x3 Tonsillectomy ENCOUNTER: Initial ACUITY: 1 month PAIN SCORE: 8/10 LOCATION: Thoracic spine pain. FLUORO TIME: 3.1 minutes IMAGE SERIES: 0 SEDATION TIME: 30 minutes MEDICATION(S): 1.) 3.5 mg midazolam (Versed) IV 2.) 150 mcg fentanyl (Sublimaze) IV DEVICE(S): 1.) 18 gauge Knight needle Core specimen(s) was obtained and submitted to laboratory for pathologic evaluation. PROCEDURE : 1. Fluoroscopically guided disc aspiration at T7-8 2. Conscious sedation with continuous EKG and Oximetry monitoring. The risks, benefits and alternatives to the procedure were explained and verbal and written consent w as obtained. The site was prepped in sterile fashion. Full sterile technique was used, including cap, mask, steri le gloves and gown and a large sterile sheet. Hand hygiene and 2% chlorhexidine and/or betadine/alco hol prep was utilized per protocol for cutaneous antisepsis. The skin and subcutaneous tissues were infiltrated with local anesthetic solution. With fluoroscopic guidance an 18 gauge Knight needle was advanced into the expected disc space at T7 -8. Multiple aspirations yielded only a scant amount of serosanguineous fluid. Therefore, the region was irrigated with nonbacteriostatic saline and the entire sample submitted for cultures per request. Next, the inner stylet was removed and the needle was advanced into the inferior endplate of T7. Nee dle was then removed and material within the needle submitted in Cytolyte solution for pathology as r equested. Conscious sedation was performed with the prescribed dosages and duration as above in the presence of an independent trained radiology nurse to assist in the monitoring of the patient. EKG and oximetry remained stable throughout the procedure. CONCLUSION: 1. Fluoroscopic guided T7-T8 disc aspiration yielding scant amount of serosanguineous fluid, as above . Sanford Blanc MD on June 20, 2017 at 13:02 Board Certified Radiologist. This report was verified electronically.
--- NOTE | 2017-06-20 15:34 | HHI.PR ---
Subjective Remarks Follow-up back pain. The patient had fluoroscopic guided T7-T8 disc aspiration today. He reports no complaints at this time. Objective Vitals Vital Signs Date Time Temp Pulse Resp B/P (MAP) Pulse Ox O2 Delivery O2 Flow Rate FiO2 06/20/17 13:27 97.8 59 18 132/76 (94) 98 06/20/17 12:40 61 18 113/72 (86) 97 06/20/17 12:10 70 18 112/71 (85) 100 06/20/17 11:55 99.0 56 18 123/80 (94) 95 06/20/17 07:59 97.7 54 18 105/64 (78) 98 06/20/17 06:23 97.7 55 18 105/62 (76) 98 06/20/17 00:00 99.0 53 18 112/69 (83) 96 06/19/17 20:00 98.0 50 18 114/69 (84) 97 06/19/17 16:39 98.7 63 18 112/67 (82) 98 I/O 06/19/17 06/19/17 06/19/17 06/20/17 06/20/17 06/20/17 06:59 14:59 22:59 06:59 14:59 22:59 Intake Total 240 ml 730 ml 700 ml Balance 240 ml 730 ml 700 ml Intake Oral 240 ml 480 ml IV Total 250 ml 700 ml # Voids 4 5 4 # Bowel Movements 2 Result Diagram: 06/19/17 0722 06/20/17 0621 Imaging Last Impressions Needle Biopsy X-Ray 06/20/17 0000 Signed Impressions: Service Date/Time: Tuesday, June 20, 2017 12:26 - CONCLUSION: 1. Fluoroscopic guided T7-T8 disc aspiration yielding scant amount of serosanguineous fluid, as above. Sanford Blanc MD Chest X-Ray 06/16/17 1130 Signed Impressions: Service Date/Time: Friday, June 16, 2017 11:32 - CONCLUSION: No acute cardiopulmonary disease. Mike Mast MD Needle Aspiration CT 06/16/17 0000 Signed Impressions: Service Date/Time: Friday, June 16, 2017 08:51 - CONCLUSION: Uncomplicated CT-guided aspiration of right paravertebral collection as above. Mike Mast MD Thoracic Spine MRI 06/15/17 0000 Signed Impressions: Service Date/Time: June 13:43 - CONCLUSION: 1. Findings characteristic of discitis at T7-T8 level with paraspinal and epidural inflammatory changes. This would be accessible to percutaneous biopsy. Tae Pardo MD Chest CT 06/14/171811 Signed Impressions: Service Date/Time: Wednesday, June 14, 2017 18:49 - CONCLUSION: Abnormal appearance to the T8-9 mainly involving T8 vertebrae and paravertebral soft tissue process at this site highly suspicious for discitis and osteomyelitis in the appropriate clinical setting, however neoplastic etiologies are difficult to exclude. Page Barron MD Abdomen/Pelvis CT 06/14/171811 Signed Impressions: Service Date/Time: Wednesday, June 14, 2017 18:47 - CONCLUSION: Essentially unremarkable abdominal/pelvic study. Page Barron MD Objective Remarks General: No acute distress. Heart: Regular rate and rhythm. No murmur. Lungs: Clear to auscultation bilaterally. No wheezes, rales, or rhonchi. Breathing is nonlabored. Abdomen: Soft, nontender, nondistended. Extremities: No lower extremity edema. Psych: Alert and oriented. Procedures 06/16/17 CT-guided aspiration of right paravertebral fluid collection Urinary Catheter: No Vascular Central Line Catheter: No A/P Assessment and Plan 1. Thoracic spine discitis/osteomyelitis: Appreciate infectious disease recommendations. Continue empiric antibiotics. Cultures from CT-guided fluid aspiration are negative. T7-T8 disc aspiration done today by interventional radiology. Cultures and biopsy are pending. 2. History of CVA: Plavix on hold for procedure. 3. DVT prophylaxis: SCDs. Jitendra Freeman MD Jun 20, 2017 15:34
[2017-06-20] MEDS: ACETAMINOPHEN/HYDROcodone 325 MG/5 MG TAB PO PRN (15:49)
[2017-06-21] VITALS: BP 100/76; PULSE 79; RESP 20; TEMP 98; O2SAT 95
[2017-06-21] MEDS: CEFEPIME INJ 2,000 MG in SODIUM CHLORIDE 0.9% INJ 100 ML IV SCH ×4 (00:40→23:34)
[2017-06-21] MEDS: ACETAMINOPHEN/HYDROcodone 325 MG/7.5 MG TAB PO PRN ×5 (00:40→22:07)
[2017-06-21] MEDS: MORPHINE SULFATE 2 MG/ML INJ IV PUSH PRN ×5 (01:28→23:34)
[2017-06-21] MEDS ORDERED: PHARMACY ORDERED LAB ONE ×2 (04:00→11:45)
[2017-06-21 04:54] VITALS: BP 103/64; PULSE 55; RESP 18; TEMP 98.4; O2SAT 95
[2017-06-21] MEDS: VANCOMYCIN 1,000 MG/NS 250 ML IV SCH ×6 (05:03→22:08)
[2017-06-21 07:41] VITALS: BP 101/65; PULSE 53; RESP 18; TEMP 98.3; O2SAT 98
[2017-06-21] MEDS: SODIUM CHLORIDE 0.9% FLUSH 10 ML FLUSH IV FLUSH SCH ×2 (08:27→22:08)
[2017-06-21] MEDS: DOCUSATE SODIUM 50 MG/SENNA 8.6 MG TAB PO SCH ×2 (08:28→22:07)
[2017-06-21 11:37] VITALS: BP 107/62; PULSE 59; RESP 18; TEMP 99; O2SAT 97
--- NOTE | 2017-06-21 14:48 | HHI.PR ---
Subjective Remarks Follow up back pain. Patient states that his pain is slightly better today. No other complaints at this time. Objective Vitals Vital Signs Date Time Temp Pulse Resp B/P (MAP) Pulse Ox O2 Delivery O2 Flow Rate FiO2 06/21/17 14:23 18 06/21/17 12:40 18 06/21/17 11:37 99.0 59 18 107/62 (77) 97 06/21/17 07:41 98.3 53 18 101/65 (77) 98 06/21/17 04:54 98.4 55 18 103/64 (77) 95 06/21/17 00:00 98.0 79 20 100/76 (84) 95 06/20/17 19:57 99.2 63 18 93/51 (65) 96 06/20/17 15:53 97.5 57 18 118/59 (78) 98 I/O 06/20/17 06/20/17 06/20/17 06/21/17 06/21/17 06/21/17 07:00 15:00 23:00 07:00 15:00 23:00 Intake Total 700 ml 490 ml 250 ml Output Total 850 ml Balance 700 ml 490 ml -850 ml 250 ml Intake Oral 240 ml IV Total 700 ml 250 ml 250 ml Output Urine Total 850 ml # Voids 4 5 1 Result Diagram: 06/19/17 0722 06/20/17 0621 Imaging Last Impressions Needle Biopsy X-Ray 06/20/17 0000 Signed Impressions: Service Date/Time: Tuesday, June 20, 2017 12:26 - CONCLUSION: 1. Fluoroscopic guided T7-T8 disc aspiration yielding scant amount of serosanguineous fluid, as above. Sanford Blanc MD Chest X-Ray 06/16/17 1130 Signed Impressions: Service Date/Time: Friday, June 16, 2017 11:32 - CONCLUSION: No acute cardiopulmonary disease. Mike Mast MD Needle Aspiration CT 06/16/17 0000 Signed Impressions: Service Date/Time: Friday, June 16, 2017 08:51 - CONCLUSION: Uncomplicated CT-guided aspiration of right paravertebral collection as above. Mike Mast MD Thoracic Spine MRI 06/15/17 0000 Signed Impressions: Service Date/Time: June 13:43 - CONCLUSION: 1. Findings characteristic of discitis at T7-T8 level with paraspinal and epidural inflammatory changes. This would be accessible to percutaneous biopsy. Tae Pardo MD Chest CT 06/14/171811 Signed Impressions: Service Date/Time: Wednesday, June 14, 2017 18:49 - CONCLUSION: Abnormal appearance to the T8-9 mainly involving T8 vertebrae and paravertebral soft tissue process at this site highly suspicious for discitis and osteomyelitis in the appropriate clinical setting, however neoplastic etiologies are difficult to exclude. Page Barron MD Abdomen/Pelvis CT 06/14/171811 Signed Impressions: Service Date/Time: Wednesday, June 14, 2017 18:47 - CONCLUSION: Essentially unremarkable abdominal/pelvic study. Page Barron MD Objective Remarks General: No acute distress. Heart: Regular rate and rhythm. No murmur. Lungs: Clear to auscultation bilaterally. No wheezes, rales, or rhonchi. Breathing is nonlabored. Abdomen: Soft, nontender, nondistended. Extremities: No lower extremity edema. Psych: Alert and oriented. Procedures 06/16/17 CT-guided aspiration of right paravertebral fluid collection 06/20/17 fluoroscopic-guided T7-T8 disc aspiration Urinary Catheter: No Vascular Central Line Catheter: No A/P Assessment and Plan 1. Thoracic spine discitis/osteomyelitis: Appreciate infectious disease recommendations. Continue empiric antibiotics. Cultures from CT-guided fluid aspiration are negative. T7-T8 disc aspiration done 06/20/17 by interventional radiology. Cultures and biopsy are pending. 2. History of CVA: Plavix on hold for procedure. 3. DVT prophylaxis: SCDs. Discharge Planning Pending culture results, antibiotic recommendations from infectious disease. Jitendra Freeman MD Jun 21, 2017 14:48
[2017-06-21 16:21] VITALS: BP 119/62; PULSE 69; RESP 18; TEMP 97.7; O2SAT 99
[2017-06-21 20:45] VITALS: BP 118/69; PULSE 64; RESP 17; TEMP 98.8; O2SAT 98
[2017-06-22] VITALS: BP 115/65; PULSE 60; RESP 17; TEMP 97.8; O2SAT 97
[2017-06-22] MEDS: ACETAMINOPHEN/HYDROcodone 325 MG/7.5 MG TAB PO PRN ×5 (02:26→22:26)
[2017-06-22] MEDS: MORPHINE SULFATE 2 MG/ML INJ IV PUSH PRN ×4 (03:53→21:05)
[2017-06-22 04:30] VITALS: BP 104/63; PULSE 54; RESP 17; TEMP 99; O2SAT 99
[2017-06-22] MEDS: VANCOMYCIN 1,000 MG/NS 250 ML IV SCH ×6 (06:39→22:23)
[2017-06-22 07:40] VITALS: BP 101/66; PULSE 57; RESP 18; TEMP 97.6; O2SAT 97
[2017-06-22] MEDS: SODIUM CHLORIDE 0.9% FLUSH 10 ML FLUSH IV FLUSH SCH ×2 (08:47→21:08)
[2017-06-22] MEDS: DOCUSATE SODIUM 50 MG/SENNA 8.6 MG TAB PO SCH ×2 (08:47→21:05)
[2017-06-22] MEDS: CEFEPIME INJ 2,000 MG in SODIUM CHLORIDE 0.9% INJ 100 ML IV SCH ×2 (08:51→16:04)
[2017-06-22 12:02] VITALS: BP 101/62; PULSE 61; RESP 18; TEMP 97.9; O2SAT 97
--- NOTE | 2017-06-22 14:06 | HHI.PR ---
Subjective Remarks Follow up osteomyelitis. Patient states that the back pain is improving. No other complaints at this time. Objective Vitals Vital Signs Date Time Temp Pulse Resp B/P (MAP) Pulse Ox O2 Delivery O2 Flow Rate FiO2 06/22/17 12:02 97.9 61 18 101/62 (75) 97 06/22/17 08:57 18 06/22/17 07:40 97.6 57 18 101/66 (78) 97 06/22/17 07:40 18 06/22/17 04:30 99.0 54 17 104/63 (77) 99 06/22/17 00:00 97.8 60 17 115/65 (82) 97 06/21/17 20:45 98.8 64 17 118/69 (85) 98 06/21/17 16:21 97.7 69 18 119/62 (81) 99 I/O 06/21/17 06/21/17 06/21/17 06/22/17 06/22/17 06/22/17 07:00 15:00 23:00 07:00 15:00 23:00 Intake Total 350 ml 1530 ml 1150 ml 250 ml Output Total 850 ml Balance -850 ml 350 ml 1530 ml 1150 ml 250 ml Intake Oral 1180 ml 800 ml IV Total 350 ml 350 ml 350 ml 250 ml Output Urine Total 850 ml # Voids 1 4 3 # Bowel Movements 0 0 Result Diagram: 06/19/17 0722 06/20/17 0621 Imaging Last Impressions Needle Biopsy X-Ray 06/20/17 0000 Signed Impressions: Service Date/Time: Tuesday, June 20, 2017 12:26 - CONCLUSION: 1. Fluoroscopic guided T7-T8 disc aspiration yielding scant amount of serosanguineous fluid, as above. Sanford Blanc MD Chest X-Ray 06/16/17 1130 Signed Impressions: Service Date/Time: Friday, June 16, 2017 11:32 - CONCLUSION: No acute cardiopulmonary disease. Mike Mast MD Needle Aspiration CT 06/16/17 0000 Signed Impressions: Service Date/Time: Friday, June 16, 2017 08:51 - CONCLUSION: Uncomplicated CT-guided aspiration of right paravertebral collection as above. Mike Mast MD Thoracic Spine MRI 06/15/17 0000 Signed Impressions: Service Date/Time: June 13:43 - CONCLUSION: 1. Findings characteristic of discitis at T7-T8 level with paraspinal and epidural inflammatory changes. This would be accessible to percutaneous biopsy. Tae Pardo MD Chest CT 06/14/171811 Signed Impressions: Service Date/Time: Wednesday, June 14, 2017 18:49 - CONCLUSION: Abnormal appearance to the T8-9 mainly involving T8 vertebrae and paravertebral soft tissue process at this site highly suspicious for discitis and osteomyelitis in the appropriate clinical setting, however neoplastic etiologies are difficult to exclude. Page Barron MD Abdomen/Pelvis CT 06/14/171811 Signed Impressions: Service Date/Time: Wednesday, June 14, 2017 18:47 - CONCLUSION: Essentially unremarkable abdominal/pelvic study. Page Barron MD Objective Remarks General: No acute distress. Heart: Regular rate and rhythm. No murmur. Lungs: Clear to auscultation bilaterally. No wheezes, rales, or rhonchi. Breathing is nonlabored. Abdomen: Soft, nontender, nondistended. Extremities: No lower extremity edema. Back: No tenderness to palpation. Psych: Alert and oriented. Procedures 06/16/17 CT-guided aspiration of right paravertebral fluid collection 06/20/17 fluoroscopic-guided T7-T8 disc aspiration Urinary Catheter: No Vascular Central Line Catheter: No A/P Assessment and Plan 1. Thoracic spine discitis/osteomyelitis: Continue empiric antibiotics. Cultures from CT-guided fluid aspiration are negative. T7-T8 disc aspiration done 06/20/17 by interventional radiology. Cultures are negative so far. Biopsy shows osteomyelitis. Will need long-term antibiotics. Awaiting further recommendations from infectious disease. 2. History of CVA: Plavix on hold for procedure. 3. DVT prophylaxis: SCDs. Discharge Planning Pending culture results, antibiotic recommendations from infectious disease. Jitendra Freeman MD Jun 22, 2017 14:06
[2017-06-22 15:44] VITALS: BP 107/69; PULSE 56; RESP 18; TEMP 98.3; O2SAT 97
[2017-06-22 20:55] VITALS: BP 117/61; PULSE 57; RESP 18; TEMP 98.4; O2SAT 99
[2017-06-22] MEDS ORDERED: PHARMACY ORDERED LAB ONE (21:45)
[2017-06-23] VITALS: BP 112/71; PULSE 54; RESP 20; TEMP 98.4; O2SAT 93
[2017-06-23] MEDS: CEFEPIME INJ 2,000 MG in SODIUM CHLORIDE 0.9% INJ 100 ML IV SCH ×3 (00:21→15:31)
[2017-06-23] MEDS: MORPHINE SULFATE 2 MG/ML INJ IV PUSH PRN ×3 (00:25→11:54)
[2017-06-23] MEDS: ACETAMINOPHEN/HYDROcodone 325 MG/7.5 MG TAB PO PRN ×3 (03:38→15:31)
[2017-06-23 04:00] VITALS: BP 108/61; PULSE 57; RESP 19; TEMP 98.4; O2SAT 98
[2017-06-23] MEDS: VANCOMYCIN 1,000 MG/NS 250 ML IV SCH ×4 (05:21→14:00)
[2017-06-23 08:42] VITALS: BP 102/65; PULSE 60; RESP 17; TEMP 98.2; O2SAT 98
[2017-06-23] MEDS: SODIUM CHLORIDE 0.9% FLUSH 10 ML FLUSH IV FLUSH SCH (09:42)
[2017-06-23] MEDS: DOCUSATE SODIUM 50 MG/SENNA 8.6 MG TAB PO SCH (09:46)
--- NOTE | 2017-06-23 10:42 | HHI.FF ---
Infusion Therapy Location of Infusion Therapy: Home [facility] IV Infusion Order Patient Information Patient Weight 72.3 kg Diagnosis: Coded Allergies: No Known Allergies (Unverified , 06/14/17) Administer Medication Vancomycin 1.5 grams IV q 12 hours Start Treatment: Jun 23, 2017 Stop Treatment: Aug 11, 2017 Additional Information Venous access: PICC Line Additional Instructions [x] Peripheral flush and dressing changes per protocol [x] Implanted port and central line walker: * Implanted port: 10 ml Normal Saline followed by 5 ml Heparin 100 units/ml Heparin flush after each use and monthly to maintain. [] May leave port accessed during therapy. [] May leave peripheral site accessed for duration of therapy. [x] If patient has SOB or respiratory distress, check oxygen saturation. If less than 90% or clinical signs of respiratory distress, administer oxygen at 2 L/min. via nasal cannula and notify physician. [x] Anaphylaxis/Reaction orders: * Stop infusion. * Keep IV line open with saline flush. * Notify physician. * Monitor vital signs every 15 minutes until symptoms resolve. * Check Oxygen saturation; Oxygen at 2 L/min. via nasal cannula if less than 90% or clinical signs of respiratory distress. * Administer diphenhydramine (Benadryl) 25 mg IV STAT, (unless patient has received as pre-med). May repeat once, if necessary. * Solu-Cortef 250 mg IVP over 30-60 seconds, use 100 mg vials for each dissolution. * Epinephrine (1mg/1 ml) 0.3 mg subcutaneously or IVP now with any signs of respiratory distress. * Check with physician for new additional pre-med orders if patient is re- challenged or re-treated. [x] May remove PICC line when treatment complete, after confirming with Physician. [x] If the patient is admitted to the hospital, the ED, or transferred via [facility] , complete transfer form including medication reconciliation order sheet. Laboratory Tests Weekly Labs: CBC w/diff, Creatinine, SED Rate, Vancomycin Trough April Oates MD Jun 23, 2017 10:42
[2017-06-23] MEDS ORDERED: LEVA750T9 PO (10:44)
[2017-06-23] MEDS ORDERED: EPIN1INJ21 IV PUSH (10:45)
[2017-06-23] MEDS ORDERED: SOLU250I IV PUSH (10:45)
[2017-06-23] MEDS ORDERED: EPIN1INJ21 SQ (10:45)
[2017-06-23 12:33] VITALS: BP 99/58; PULSE 64; RESP 18; TEMP 98.5; O2SAT 95
--- NOTE | 2017-06-23 12:33 | HHI.DCPOC ---
Discharge Care Plan Diagnosis: (1) Discitis of thoracic region (2) Osteomyelitis of thoracic region Goals to Promote Your Health * To prevent worsening of your condition and complications * To maintain your health at the optimal level Directions to Meet Your Goals Take your medications as prescribed Follow your dietary instruction Follow activity as directed Keep your appointments as scheduled Take your immunizations and boosters as scheduled If your symptoms worsen call your PCP, if no PCP go to Urgent Care Center or Emergency Room Smoking is Dangerous to Your Health. Avoid second hand smoke Call the 24-hour hour crisis hotline for domestic abuse at Jitendra Freeman MD Jun 23, 2017 12:32
[2017-06-23] MEDS ORDERED: HYDR-3516 PO (12:41)
--- NOTE | 2017-06-23 12:45 | HHI.DS ---
Discharge Summary Admission Date Jun 14, 2017 at 20:33 Discharge Date: Jun 23, 2017 Admitting Diagnosis Disciitis and osteomyelitits of thoracic spine. (1) Discitis of thoracic region ICD Code: M46.44 - Discitis, unspecified, thoracic region Status: Acute (2) Osteomyelitis of thoracic region ICD Code: M46.24 - Osteomyelitis of vertebra, thoracic region Status: Acute Procedures 06/16/17 CT-guided aspiration of right paravertebral fluid collection 06/20/17 fluoroscopic-guided T7-T8 disc aspiration Brief History - From Admission 36-year-old male with a past medical history of ischemic stroke in 2010 presents to the emergency department for the evaluation of back pain. The patient reports the pain started 3 weeks ago and was generalized to the thoracic spine. He describes the pain as cramping and spasms worse when he moves or bends over. He states that it radiates around his ribs. He denies any fever/chills. Denies any extremity weakness or bowel/bladder incontinence. Chest CT revealed abnormal appearance to the T8-9 vertebrae and paravertebral soft tissue process highly suspicious for discitis and osteomyelitis. On arrival to the emergency department the patient is afebrile with stable vital signs. WBCs 8.8. CBC/BMP: 06/19/17 0722 06/20/17 0621 Significant Findings Laboratory Tests Test 06/20/17 15:50 06/21/17 11:45 06/22/17 21:48 Vancomycin Level Trough 23.6 MCG/ML (5.0-10.0) 14.8 MCG/ML (5.0-10.0) 16.0 MCG/ML (5.0-10.0) Imaging Last Impressions Needle Biopsy X-Ray 06/20/17 0000 Signed Impressions: Service Date/Time: Tuesday, June 20, 2017 12:26 - CONCLUSION: 1. Fluoroscopic guided T7-T8 disc aspiration yielding scant amount of serosanguineous fluid, as above. Sanford Blanc MD Chest X-Ray 06/16/17 1130 Signed Impressions: Service Date/Time: Friday, June 16, 2017 11:32 - CONCLUSION: No acute cardiopulmonary disease. Mike Mast MD Needle Aspiration CT 06/16/17 0000 Signed Impressions: Service Date/Time: Friday, June 16, 2017 08:51 - CONCLUSION: Uncomplicated CT-guided aspiration of right paravertebral collection as above. Mike Mast MD Thoracic Spine MRI 06/15/17 0000 Signed Impressions: Service Date/Time: June 13:43 - CONCLUSION: 1. Findings characteristic of discitis at T7-T8 level with paraspinal and epidural inflammatory changes. This would be accessible to percutaneous biopsy. Tae Pardo MD Chest CT 06/14/171811 Signed Impressions: Service Date/Time: Wednesday, June 14, 2017 18:49 - CONCLUSION: Abnormal appearance to the T8-9 mainly involving T8 vertebrae and paravertebral soft tissue process at this site highly suspicious for discitis and osteomyelitis in the appropriate clinical setting, however neoplastic etiologies are difficult to exclude. Page Barron MD Abdomen/Pelvis CT 06/14/171811 Signed Impressions: Service Date/Time: Wednesday, June 14, 2017 18:47 - CONCLUSION: Essentially unremarkable abdominal/pelvic study. Page Barron MD PE at Discharge General: No acute distress. Heart: Regular rate and rhythm. No murmur. Lungs: Clear to auscultation bilaterally. No wheezes, rales, or rhonchi. Breathing is nonlabored. Abdomen: Soft, nontender, nondistended. Extremities: No lower extremity edema. Back: No tenderness to palpation. Psych: Alert and oriented. Pt update on day of discharge Patient is still having pain radiating around his left ribcage. No other complaints at this time. Hospital Course Of T8-T9 discitis/osteomyelitis. He was continued on IV antibiotics. Infectious disease was consulted. Aspiration of paravertebral fluid was done. Culture was negative. Fluoroscopic guided disc aspiration was done. Pathology showed osteomyelitis. Recommendations were made by infectious disease for outpatient IV antibiotics. PICC line was ordered. The patient was felt to be stable for discharge home. Pt Condition on Discharge: Stable Discharge Disposition: Discharge Home Discharge Time: > 30 minutes Discharge Instructions DIET: Follow Instructions for: As Tolerated, No Restrictions Activities you can perform: Regular-No Restrictions Follow up Referrals: PCP Follow-up - 1 Week New Medications: Epinephrine Inj (Epinephrine Inj) 1 Mg/Ml (1 Ml) Inj 0.3 MG IV PUSH ONCE PRN for ALLERGIC REACTION, #1 VIAL Epinephrine Inj (Epinephrine Inj) 1 Mg/Ml (1 Ml) Inj 0.3 MG SQ ONCE PRN for ALLERGIC REACTION, #1 VIAL Give with any signs of respiratory distress. Hydrocortisone Inj (Solu-Cortef Inj) 250 Mg/2 Ml Inj 250 MG IV PUSH ONCE PRN for ALLERGIC REACTION, #1 VIAL 0 Refills Give over 30-60 seconds. Levofloxacin (Levaquin) 750 Mg Tablet 750 MG PO DAILY for Infection for 45 Days, #45 TAB 0 Refills Vancomycin Inj (Vancomycin Inj) 10 Gram Inj 1500 MG IV Q12HR for Infection for 45 Days, VIAL Hydrocodone/Acetaminophen (Hydrocodone-Acetamin 5-325 mg) 5 Mg-325 Mg Tablet 1 TAB PO Q4H PRN for PAIN SCALE 4 TO 10, #20 TAB 0 Refills Jitendra Freeman MD Jun 23, 2017 12:45
--- NOTE | 2017-06-23 15:23 | HHI.IDPN ---
Subjective Subjective Remarks path special stains negative as well clx negative - final no fever back pain cont to improve ambulates w/o assistance reports no new problems Antibiotics vancomycin cefepime Allergies: Coded Allergies: No Known Allergies (Unverified , 06/14/17) Objective . Vital Signs Date Time Temp Pulse Resp B/P (MAP) Pulse Ox O2 Delivery O2 Flow Rate FiO2 06/23/17 12:33 98.5 64 18 99/58 (72) 95 06/23/17 08:42 98.2 60 17 102/65 (77) 98 06/23/17 04:00 98.4 57 19 108/61 (77) 98 06/23/17 00:00 98.4 54 20 112/71 (85) 93 06/22/17 20:55 98.4 57 18 117/61 (79) 99 06/22/17 19:40 18 06/22/17 15:44 98.3 56 18 107/69 (82) 97 Imaging Last Impressions Needle Biopsy X-Ray 06/20/17 0000 Signed Impressions: Service Date/Time: Tuesday, June 20, 2017 12:26 - CONCLUSION: 1. Fluoroscopic guided T7-T8 disc aspiration yielding scant amount of serosanguineous fluid, as above. Sanford Blanc MD Chest X-Ray 06/16/17 1130 Signed Impressions: Service Date/Time: Friday, June 16, 2017 11:32 - CONCLUSION: No acute cardiopulmonary disease. Mike Mast MD Needle Aspiration CT 06/16/17 0000 Signed Impressions: Service Date/Time: Friday, June 16, 2017 08:51 - CONCLUSION: Uncomplicated CT-guided aspiration of right paravertebral collection as above. Mike Mast MD Thoracic Spine MRI 06/15/17 0000 Signed Impressions: Service Date/Time: June 13:43 - CONCLUSION: 1. Findings characteristic of discitis at T7-T8 level with paraspinal and epidural inflammatory changes. This would be accessible to percutaneous biopsy. Tae Pardo MD Chest CT 06/14/17 1812 Signed Impressions: Service Date/Time: Wednesday, June 14, 2017 18:49 - CONCLUSION: Abnormal appearance to the T8-9 mainly involving T8 vertebrae and paravertebral soft tissue process at this site highly suspicious for discitis and osteomyelitis in the appropriate clinical setting, however neoplastic etiologies are difficult to exclude. Page Barron MD Abdomen/Pelvis CT 06/14/171811 Signed Impressions: Service Date/Time: Wednesday, June 14, 2017 18:47 - CONCLUSION: Essentially unremarkable abdominal/pelvic study. Page Barron MD Physical Exam CONSTITUTIONAL/GENERAL: This is an adequately nourished patient, in no apparent distress. TUBES/LINES/DRAINS: CARDIOVASCULAR: Regular rate and rhythm without murmurs, gallops, or rubs. No JVD. Peripheral pulses symmetric. RESPIRATORY/CHEST: Symmetric, unlabored respirations. Clear to auscultation. Breath sounds equal bilaterally. No wheezes, rales, or rhonchi. GASTROINTESTINAL: Abdomen soft, non-tender, nondistended. No hepato-splenomegaly , or palpable masses. No guarding. Bowel sounds present. MUSCULOSKELETAL: Extremities without clubbing, cyanosis, or edema. No joint tenderness or effusion noted. No calf tenderness. No mottling or clubbing. BACK: no obvious deformities Not tender to palpation over spine NEUROLOGICAL: Awake and alert. Motor and sensory grossly within normal limits. Assessment & Plan Remarks diskitis/ osteomyelitis of T spine - path confirmed clx negative osteomeyelits MRI showed discitis at T7-T8 level with paraspinal and epidural, inflammatory changes sp CT guided aspiration, clx negative change abx to vanco and levaquin dw case mngr: will have to change to televancin daily because only place wherr the pt can get abx is infusion center April Oates MD Jun 23, 2017 15:23
--- NOTE | 2017-06-23 15:27 | HHI.FF ---
Infusion Therapy Location of Infusion Therapy: Ambulatory Infusion Therapy Order Patient Information Patient Weight 72.3 kg Diagnosis: Diagnosis T spine vertebral osteomyelitis, culture negative Coded Allergies: No Known Allergies (Unverified , 06/14/17) Administer Medication Televancin 700 mg IV daily for 6 weeks Start Treatment: Jun 23, 2017 Stop Treatment: Aug 03, 2017 Additional Information Venous access: PICC Line Additional Instructions [x] Peripheral flush and dressing changes per protocol [x] Implanted port and central apprentice lineman third step: * Implanted port: 10 ml Normal Saline followed by 5 ml Heparin 100 units/ml Heparin flush after each use and monthly to maintain. [] May leave port accessed during therapy. [] May leave peripheral site accessed for duration of therapy. [x] If patient has SOB or respiratory distress, check oxygen saturation. If less than 90% or clinical signs of respiratory distress, administer oxygen at 2 L/min. via nasal cannula and notify physician. [x] Anaphylaxis/Reaction orders: * Stop infusion. * Keep IV line open with saline flush. * Notify physician. * Monitor vital signs every 15 minutes until symptoms resolve. * Check Oxygen saturation; Oxygen at 2 L/min. via nasal cannula if less than 90% or clinical signs of respiratory distress. * Administer diphenhydramine (Benadryl) 25 mg IV STAT, (unless patient has received as pre-med). May repeat once, if necessary. * Solu-Cortef 250 mg IVP over 30-60 seconds, use 100 mg vials for each dissolution. * Epinephrine (1mg/1 ml) 0.3 mg subcutaneously or IVP now with any signs of respiratory distress. * Check with physician for new additional pre-med orders if patient is re- challenged or re-treated. [x] May remove PICC line when treatment complete, after confirming with Physician. [x] If the patient is admitted to the hospital, the ED, or transferred via [facility] , complete transfer form including medication reconciliation order sheet. Laboratory Tests Weekly Labs: CBC w/diff, Creatinine (every Monday and ), SED Rate April Oates MD Jun 23, 2017 15:27
[2017-06-23] MEDS ORDERED: VIBA750I IV (15:29)
--- NOTE | 2017-06-23 15:39 | RADRPT ---
EXAM DATE/TIME: 06/23/2017 15:11 [facility] COMPARISON: CHEST SINGLE AP, June 16, 2017, 11:32. INDICATIONS : PICC line placement MEDICAL HISTORY : Osteomyelitis SURGICAL HISTORY : tumor removed from humeral head ENCOUNTER: Initial ACUITY: 1 day PAIN SCORE: 0/10 LOCATION: Bilateral chest FINDINGS: Portable upright AP view of the chest demonstrates a normal-sized cardiac silhouette. Right upper ext remity PICC distal tip overlies the right atrium. No effusion, consolidation, or pneumothorax is iden tified. Bones and soft tissues demonstrate no acute finding. CONCLUSION: Right upper extremity PICC distal tip is in the right atrium. Adiel De La Cruz MD on June 23, 2017 at 15:35 Board Certified Radiologist. This report was verified electronically.
[2017-06-23] MEDS ORDERED: SODIUM CHLORIDE 0.9% FLUSH 10 ML FLUSH IV FLUSH PRN (15:45)
[2017-06-24] MEDS ORDERED: PHARMACY ORDERED LAB ONE (05:45)
[2017-06-24] MEDS ORDERED: SODIUM CHLORIDE 0.9% FLUSH 10 ML FLUSH IV FLUSH SCH (09:00)
== END 2017-06-23 18:08 | disposition home or self-care (01) | DRG 478 ==
LOC: NEPD 16:54 → NEDA 20:33 → N05B 21:38
PROVIDERS: ADMIT Family Medicine; ATTEND Family Medicine
PROC: 0P943ZX Drainage of Thoracic Vertebra, Percutaneous Approach, Diagnostic (ICD-10-PCS; principal; 2017-06-16)
PROC: 0PB43ZX Excision of Thoracic Vertebra, Percutaneous Approach, Diagnostic (ICD-10-PCS; 2017-06-20)
DX: M46.44 Discitis, unspecified, thoracic region (principal); M46.24 Osteomyelitis of vertebra, thoracic region; F43.10 Post-traumatic stress disorder, unspecified; R63.4 Abnormal weight loss; Z68.24 Body mass index [BMI] 24.0-24.9, adult; Z86.73 Personal history of transient ischemic attack (TIA), and cerebral infarction without residual deficits
CPT/HCPCS: 20225; 36569; 62267; 71045; 71046; 71260; 72157; 74177; 76937; 77002; 77012; 80048; 80053; 80202; 80307; 82565; 83605; 83690; 85025; 85610; 85652; 85730; 86140; 87015; 87040; 87070; 87102; 87116; 87176; 87205; 87206; 88305; 88307; 88312; 93005; 96360; 99152; 99153; A9579; J0692; J2250; J2270; J2543; J3010; J3370; J7030; J7040; J7050; Q9967

== ENCOUNTER 2017-06-26 09:59 | Emergency (ER) | payer OTHER ==
[~2017-06-26] VITALS: Ht 172.7 cm; Wt 73.0 kg
[~2017-06-26 09:59] MED LIST: HYDR-3516 PO; LEVA750T9 PO; VIBA750I IV
[2017-06-26 10:02] VITALS: BP 145/94; PULSE 60; RESP 16; TEMP 98.3; O2SAT 100
--- NOTE | 2017-06-26 10:44 | PD ---
HPI Chief Complaint: Back/ Neck Pain or Injury Time Seen by Provider: 10:31 Travel History International Travel<30 days: No Contact w/Intl Traveler<30days: No Traveled to known affect area: No History of Present Illness HPI This is a 36-year-old male who presents to the emergency department with a history of recently diagnosed thoracic osteomyelitis. He was discharged with Moraga for pain. He says he's been having very severe pain in his mid back radiating to the ribs, constant, worse with walking, improved with rest and is having difficulty getting around the house. He was discharged with 20 Moraga tablets and he says that he's used these all but he's having worsening severe pain. He also says he was never given his oral antibiotic therapy prescription. He did go to his IV infusion center this morning and received his IV antibiotics. PFSH Past Medical History Anxiety: Yes Cancer: No Cardiovascular Problems: No Cerebrovascular Accident: Yes (ISCHEMIC STROKE 2010) Diminished Hearing: No Endocrine: No Genitourinary: No Immune Disorder: No Psychiatric: Yes Reproductive: No Respiratory: No Past Surgical History Body Medical Devices: PICC LINE 06/23/17 Other Surgery: Yes (right shoulder ) Social History Alcohol Use: No Tobacco Use: No Substance Use: No Allergies-Medications (Allergen,Severity, Reaction): Coded Allergies: No Known Allergies (Unverified , 06/26/17) Reported Meds & Prescriptions Reported Meds & Active Scripts Active Vibativ Inj (Telavancin) 750 Mg Inj 750 Mg IV Q24H 40 Days Hydrocodone-Acetamin 5-325 mg (Hydrocodone/Acetaminophen) 5 Mg-325 Mg Tablet 1 Tab PO Q4H PRN Levaquin (Levofloxacin) 750 Mg Tablet 750 Mg PO DAILY 45 Days Review of Systems Except as stated in HPI: all other systems reviewed are Neg Physical Exam Narrative GENERAL:Well appearing, no acute distress SKIN: Focused skin assessment warm and dry. HEAD: Atraumatic. Normocephalic. EYES: Pupils equal and round. No injection or drainage. ENT: Moist mucous membranes NECK: Trachea midline. CARDIOVASCULAR: Regular rate and rhythm. No murmur appreciated. RESPIRATORY: Clear to auscultation. Breath sounds equal bilaterally. GASTROINTESTINAL: Abdomen soft, non-tender, nondistended. MUSCULOSKELETAL: NEUROLOGICAL: Awake and alert. No obvious cranial nerve deficits. Moving all extremities. PSYCHIATRIC: Appropriate mood and affect; insight and judgment normal. Data Data Last Documented VS Vital Signs Date Time Temp Pulse Resp B/P (MAP) Pulse Ox O2 Delivery O2 Flow Rate FiO2 06/26/17 10:02 98.3 60 16 145/94 (111) 100 MDM Medical Decision Making Medical Screen Exam Complete: Yes Emergency Medical Condition: Yes Interpretation(s) Afebrile, no tachycardia, normotensive Differential Diagnosis Osteomyelitis, discitis, epidural abscess Narrative Course This is a 36-year-old male who presents to the emergency department with a history of osteomyelitis and discitis who is having poorly controlled pain having been discharged from the hospital 3 days ago. Patient will be prescribed a short dose of opiate therapy. He was instructed that [facility]. He also was given oral antibiotic therapy as he says he was not given a prescription for this. Otherwise I think his clinical condition is unchanged and I think the patient is safe for outpatient management. Diagnosis Primary Impression: Discitis Qualified Codes: M46.40 - Discitis, unspecified, site unspecified Patient Instructions: General Instructions Additional Instructions: If you develop weakness of your legs, difficulty walking, numbness of your legs or your genital or rectal area, loss of your bowel or bladder, or difficulty urinating return to the emergency department immediately. Followup with your primary care physician in one week if your symptoms have not improved. Med/Other Pt SpecificInfo: Prescription(s) given Scripts Naproxen (Naproxen) 500 Mg Tab 500 MG PO BID Y for PAIN SCALE 4 TO 10, #20 TAB 0 Refills Prov: Ashanti Saleem MD 06/26/17 Oxycodone-Acetaminophen (Percocet) 5-325 mg Tab 1 TAB PO Q6H Y for PAIN, #15 TAB 0 Refills Prov: Ashanti Saleem MD 06/26/17 Levofloxacin (Levaquin) 750 Mg Tablet 750 MG PO DAILY for Infection for 45 Days, #45 TAB 0 Refills Prov: Ashanti Saleem MD 06/26/17 Disposition: 01 DISCHARGE HOME Condition: Stable Ashanti Saleem MD Jun 26, 2017 10:44
[2017-06-26] MEDS ORDERED: LEVA750T9 PO (10:49)
[2017-06-26] MEDS ORDERED: PERC5TAB12 PO (10:49)
[2017-06-26] MEDS ORDERED: NAPR500T2 PO (10:49)
== END 2017-06-26 11:01 | disposition home or self-care (01) ==
LOC: NEPK 09:59
DX: M46.44 Discitis, unspecified, thoracic region (principal); M46.24 Osteomyelitis of vertebra, thoracic region
CPT/HCPCS: 99284

== ENCOUNTER 2018-02-16 17:07 | Inpatient (IN) ==
--- NOTE | 2018-02-16 18:16 | XR ---
EXAM DATE: 02/16/2018 6:05 PM EDT AGE/SEX: 37 years / Male INDICATIONS: Back pain. CLINICAL DATA: This is the patient's initial encounter. Patient reports that signs and symptoms have been present for 4 - 6 days and indicates a pain score of 9/10. MEDICAL/SURGICAL HISTORY: Osteomyelitis. None. COMPARISON: [facility] – [place] THORAX W CONTRAST, 06/14/2017. . FINDINGS: There is fusion of 2 contiguous compressed mid thoracic vertebral bodies likely at T7-8. Mild milan melody deformity involving L1 is noted. Degenerative changes are noted throughout the thoracic spine. CONCLUSION: 1. Mild compression deformity involving L1. 2. Fusion of 2 contiguous compressed mid thoracic vertebral bodies likely at T7-8. Electronically signed by: Mike Mast MD 02/16/2018 6:15 PM EDT
[2018-02-16] MEDS ORDERED: Sod Chloride 0.9% Inj 1,000 ML IV.SIG ONE (19:16)
[2018-02-16] MEDS ORDERED: Morphine Sulfate Inj 2 MG/ML Vial IV.PUSH ONE (19:19)
--- NOTE | 2018-02-16 19:45 | XR ---
EXAM DATE: 02/16/2018 7:42 PM EDT AGE/SEX: 37 years / Male INDICATIONS: Fever. CLINICAL DATA: This is the patient's initial encounter. Patient reports that signs and symptoms have been present for 2 days and indicates a pain score of 10/10. MEDICAL/SURGICAL HISTORY: Osteomyelitis. None. COMPARISON: [facility] – [place], CHEST SINGLE AP, 06/23/2017. . FINDINGS: A single AP view of the chest demonstrates the lungs to be symmetrically aerated without evidence of mass, infiltrate or effusion. The cardiomediastinal contours are unremarkable. Osseous structures a re intact. CONCLUSION: Negative examination. Electronically signed by: Mike Mast MD 02/16/2018 7:44 PM EDT
[2018-02-16 19:48] LABS: Baso % (Auto) 0.4 % (0.0-2.0); Eos % (Auto) 0.3 % (0.0-4.0); Hematocrit 41.9 % (39.0-51.0); Hemoglobin 14.2 gm/dL (13.0-17.0); Lymph # (Auto) 1.6 th/mm3 (1.0-4.8); Lymph % (Auto) 18.5 % (9.0-44.0); Mean Corpuscular HGB Conc 33.9 % (32.0-36.0); Mean Corpuscular Hemoglobin 28.3 pg (27.0-34.0); Mean Corpuscular Volume 83.5 fL (80.0-100.0); Mono # (Auto) 0.7 th/mm3 (0.0-0.9); Mono % (Auto) 8.1 % (0.0-8.0); Neut # (Auto) 6.3 th/mm3 (1.8-7.7); Neut % (Auto) 72.7 % (16.0-70.0); Platelet Count 427 th/mm3 (150-450); Red Blood Count 5.02 mil/mm3 (4.50-5.90); Red Cell Distribution Width 13.5 % (11.6-17.2); White Blood Count 8.6 th/mm3 (4.0-11.0)
[2018-02-16 20:02] LABS: Albumin 3.9 g/dL (3.4-5.0); Anion Gap 9 meq/L (5-15); Aspartate Aminotransferase 15 U/L (15-37); Blood Urea Nitrogen 10 mg/dL (7-18); Calcium 9.6 mg/dL (8.5-10.1); Carbon Dioxide 29.3 meq/L (21.0-32.0); Chloride 95 meq/L (98-107); Glomerular Filtration Rate Greater Than 89 mL/min (>89); Glucose,Random 92 mg/dL (74-106); Potassium 3.8 meq/L (3.5-5.1); Sodium 133 meq/L (136-145)
[2018-02-16 20:03] LABS: Alanine Aminotransferase 13 U/L (12-78)
[2018-02-16 20:07] LABS: Alkaline Phosphatase 70 U/L (45-117)
--- NOTE | 2018-02-16 21:42 | ED ---
HPI General Chief Complaint: Back Pain/Injury Stated Complaint: Spine pain Time Seen by Provider: 02/16/18 19:08 Source: patient Mode of arrival: ambulatory Limitations: no limitations History of Present Illness HPI Narrative: 37-year-old male with PMH of ischemic stroke, spinal osteomyelitis presents the ED for evaluation of 5 day history of chills and night sweats and 3 day history of midthoracic back pain. Patient states these symptoms are similar to previous episode of osteomyelitis. He rates the pain 9/ 10, no alleviating or exacerbating factors reported. He denies fevers, chest pain, palpitations, shortness of breath, abdominal pain, nausea, vomiting, numbness, tingling, weakness, limitations to range of motion of the extremities. He endorses chronic mild aphasia secondary to his stroke. He does not currently have a primary care provider. The patient was diagnosed with osteomyelitis originally in June and was on IV antibiotics till October. [facility]. He states that the [facility] doctor speculated that his injury could be related to his service in [employer] [place] [employer] [place]. No treatment attempted before arrival. Related Data Home Medications Medication Instructions Recorded Confirmed No Known Home Medications 02/16/18 02/16/18 Allergies Allergy/AdvReac Type Severity Reaction Status Date / Time No Known Allergies Allergy Unverified 06/27/17 08:40 Review of Systems ROS: all other systems reviewed are negative PMFSH Medical History Medical History CVA (cerebral vascular accident) (Acute) Osteomyelitis (Acute) Surgical History Surgical History H/O shoulder surgery (Acute) Hx of tonsillectomy (Acute) Social History Social History Substance History: No History of Abuse Smoking Status: Former smoker Tobacco Type: Cigarettes How Often Do You Have a Drink Containing Alcohol: Never Recent Travel in [facility] within the Last 8 Weeks: No Recent Out of Country Travel within the Last 8 Weeks: No Immunization History Tetanus Immunization: Unable to Assess Hx Influenza Vaccine This Season: Yes Exam Narrative Exam Narrative: GENERAL: Well-developed, well-nourished white male, nontoxic- appearing, in no acute distress. SKIN: Focused skin assessment warm/dry. HEAD: Atraumatic. Normocephalic. EYES: Pupils equal and round. No scleral icterus. No injection or drainage. ENT: No nasal bleeding or discharge. Mucous membranes pink and moist. NECK: Trachea midline. No JVD. CARDIOVASCULAR: Regular rate and rhythm. No murmur appreciated. RESPIRATORY: No accessory muscle use. Clear to auscultation. Breath sounds equal bilaterally. GASTROINTESTINAL: Abdomen soft, non-tender, nondistended. Hepatic and splenic margins not palpable. MUSCULOSKELETAL: No obvious deformities. No clubbing. No cyanosis. No edema. NEUROLOGICAL: Awake and alert. No obvious cranial nerve deficits. Motor grossly within normal limits. Normal speech. BACK: Tender to palpation in the midthoracic spine. Palpable step-off in the T4 -7 range. No tenderness to palpation of the paraspinal musculature. PSYCHIATRIC: Appropriate mood and affect; insight and judgment normal. Course Initial Documented Vital Signs Temperature 98.4 F 02/16/18 17:29 Pulse Rate 73 02/16/18 17:29 Respiratory Rate 14 02/16/18 17:29 Blood Pressure 129/85 02/16/18 17:29 Pulse Oximetry 99 02/16/18 17:29 Last Documented Vital Signs Temperature 98.4 F 02/16/18 17:29 Pulse Rate 85 02/16/18 19:08 Respiratory Rate 15 02/16/18 21:06 Blood Pressure 142/82 H 02/16/18 19:08 Pulse Oximetry 100 02/16/18 19:08 Medical Decision Making MDM Narrative Medical decision making narrative: 37-year-old male with PMH of osteomyelitis of the thoracic spine presents the ED for evaluation of 5 day history of night sweats and chills and 3 day history of midthoracic back pain. Vitals reviewed. Patient's afebrile on presentation. Physical exam reveals tenderness in the midline with palpable deformity at the T6 through T8 region. No focal neuro deficits. IV was established. Patient was administered morphine and a liter of saline. No leukocytosis. CRP is 10.0. MRI of the spine reveals some chronic osteomyelitic changes and spinal stenosis. I discussed the findings with Dr. Gongora, on-call neurosurgeon. He does not see a indication for surgical intervention but does recommend ID consultation and IV antibiotics. I discussed this plan with the patient who is agreeable. He was administered 0.5 mg Dilaudid, IV vancomycin and Zosyn initiated. Consult placed with Dr. Gongora. Consult placed with ID. I spoke with Dr. Lora who agrees to accept the patient to the medicine service. Please see medicine notes for disposition. Medical Screen Exam Complete: Yes Emergency Medical Condition: Yes Differential Diagnosis Differential Diagnosis: back pain versus compression fracture versus osteomyelitis versus discitis versus spinal abscess versus other Lab Data Result diagrams: 02/16/18 19:35 02/16/18 19:35 Lab Results 02/16/18 02/16/18 02/16/18 Range/Units 19:30 19:35 19:35 WBC 8.6 (4.0-11.0) th/mm3 RBC 5.02 (4.50-5.90) mil/mm3 Hgb 14.2 (13.0-17.0) gm/dL Hct 41.9 (39.0-51.0) % MCV 83.5 (80.0-100.0) fL MCH 28.3 (27.0-34.0) pg MCHC 33.9 (32.0-36.0) % RDW 13.5 (11.6-17.2) % Plt Count 427 (150-450) th/mm3 MPV 6.0 L (7.0-11.0) fL Neut % (Auto) 72.7 H (16.0-70.0) % Lymph % (Auto) 18.5 (9.0-44.0) % [place] % (Auto) 8.1 H (0.0-8.0) % Eos % (Auto) 0.3 (0.0-4.0) % Baso % (Auto) 0.4 (0.0-2.0) % Neut # (Auto) 6.3 (1.8-7.7) th/mm3 Lymph # (Auto) 1.6 (1.0-4.8) th/mm3 [place] # (Auto) 0.7 (0.0-0.9) th/mm3 Eos # (Auto) 0.0 (0.0-0.4) th/mm3 Baso # (Auto) 0.0 (0.0-0.2) th/mm3 WBC Differential . Differential Comment Auto diff final ESR 13 (0-15) mm/hr Sodium 133 L (136-145) meq/L Potassium 3.8 (3.5-5.1) meq/L Chloride 95 L (98-107) meq/L Carbon Dioxide 29.3 (21.0-32.0) meq/L Anion Gap 9 (5-15) meq/L BUN 10 (7-18) mg/dL Creatinine 0.95 (0.60-1.30) mg/dL Estimated GFR Greater than 89 (>89) mL/min Random Glucose 92 (74-106) mg/dL Calcium 9.6 (8.5-10.1) mg/dL Total Bilirubin 0.7 (0.2-1.0) mg/dL AST 15 (15-37) U/L ALT 13 (12-78) U/L Alkaline Phosphatase 70 (45-117) U/L Troponin I Less than 0.02 L (0.02-0.05) ng/mL C-Reactive Protein 10.00 H (0.00-0.30) mg/dL Total Protein 10.0 H (6.4-8.2) g/dL Albumin 3.9 (3.4-5.0) g/dL Imaging Data Radiologist's impression: Thoracic Spine X-Ray 02/16/18 00:00 CONCLUSION: 1. Mild compression deformity involving L1. 2. Fusion of 2 contiguous compressed mid thoracic vertebral bodies likely at T7 -8. Chest X-Ray 02/16/18 19:16 CONCLUSION: Negative examination. Thoracic Spine MRI 02/16/18 19:16 CONCLUSION: 1. Bony fusion of T7 and T8 as well as diffuse enhancement of these fused vertebral bodies and also enhancement of the T6 vertebral body. The findings are suggestive of probable chronic osteomyelitis of these vertebral bodies. There is an enhancing epidural collection extending from the top of T6 to the midportion of the fused T7-8 vertebral body. This enhancing epidural mass results in effacement of the anterior thecal sac, mild spinal stenosis and some impingement upon the anterior aspect of the thoracic cord. Discharge Plan Discharge Disposition Patient Disposition: 30 Still Patient Discharge Condition Condition: Stable Discharge Details Diagnosis: Osteomyelitis Physicians Team ED Provider: Tammi Amaya ED Midlevel Provider: Iman Lizarraga Primary Care Provider: [facility]ician [facility] /Orders / Referrals /Forms Prescriptions: No Action No Known Home Medications RF: 0 Status ED Status: With Doctor
--- NOTE | 2018-02-16 22:35 | MR ---
EXAM DATE: 02/16/2018 10:01 PM EDT AGE/SEX: 37 years / Male INDICATIONS: Osteomyelitis. CLINICAL DATA: This is the patient's initial encounter. Patient reports that signs and symptoms have been present for 1 day and indicates a pain score of 8/10. MEDICAL/SURGICAL HISTORY: . Prior hx of osteomyelitis in [facility]. . Right shoulder sx. COMPARISON: [facility] – [place], MRI THORACIC SPINE W & W/O CONTRAST, 06/15/2017. [facility] – [place], [place] THORAX W CONTRAST, 2017. . TECHNIQUE: Multiplanar, multisequence MRI of the thoracic spine was performed without and with 8 ml Gadavist (gadobutrol) contrast as a single exam dose. FINDINGS: There is bony fusion of T7 and T8 as well as diffuse enhancement of these fused vertebral bodies and also enhancement of the T6 vertebral body. The findings are suggestive of probable chronic osteomyeli tis of these vertebral bodies. There is an enhancing epidural collection extending from the top of T6 to the midportion of the fused T7-8 vertebral body. This enhancing epidural mass results in effaceme nt of the anterior thecal sac, mild spinal stenosis and some impingement upon the anterior aspect of the thoracic cord. The thoracic cord is intact. The remainder of the thoracic vertebral bodies are unremarkable without fracture, subluxation or enhancement. CONCLUSION: 1. Bony fusion of T7 and T8 as well as diffuse enhancement of these fused vertebral bodies and also enhancement of the T6 vertebral body. The findings are suggestive of probable chronic osteomyelitis o f these vertebral bodies. There is an enhancing epidural collection extending from the top of T6 to t he midportion of the fused T7-8 vertebral body. This enhancing epidural mass results in effacement of the anterior thecal sac, mild spinal stenosis and some impingement upon the anterior aspect of the t horacic cord. Electronically signed by: Mike Mast MD 02/16/2018 10:33 PM EDT
[2018-02-16] MEDS ORDERED: Vancomycin Inj 1 GM/200 ML PIGGYBACK IV.SIG ONE (22:42)
[2018-02-16] MEDS ORDERED: Vancomycin Inj 1,000 MG in Sodium Chlor 0.9% Inj 250 ML IV.SIG ONE (23:00)
[2018-02-16] MEDS ORDERED: HYDROmorphone PF Inj 0.5 MG/0.5 ML Syringe IV.PUSH STA (23:06)
[2018-02-16] MEDS ORDERED: Gadobutrol PF 10 MMOL/10 ML Vial (for RAD) IV.SIG ONE (23:06)
[2018-02-16] MEDS ORDERED: Vancomycin Consult Pharmacy OTHER PRN (23:20)
[2018-02-16] MEDS ORDERED: Bisacodyl 10 MG Supp RECTAL PRN (23:21)
[2018-02-16] MEDS ORDERED: Acetaminophen 325 MG Tablet PO PRN (23:21)
--- NOTE | 2018-02-16 23:22 | P.HPIM ---
History of Present Illness Primary Care Physician: Physician [facility] History of Present Illness: This is a 37-year-old male with a PMH of CVA 2010 and H/o Thoracic Osteomyelitis who presented to the ER w/ complaints thoracic back pain x5 days. Notes pain is similar to previous episode of osteomyelitis. Pain is constant , severe, 9/10, non-radiating. Also notes subjective fever, chills. Previous admit 06/14-06/23/17 for similar complaints, MRI T-Spine 06/15/17 w/ T7-T8 discitis, s/p CT Guided Biopsy by IR 06/20/17, cultures negative, Pathology positive for Osteomyelitis, s/p eval by ID, completed treatment w/ Vanc/Levaquin x45 days. States he was seen by ID and Neurosurgery at the [facility] on for an "exit eval", had imaging done at that time w/ no recommendation for surgical intervention. On arrival, BP 129/85, HR 73, O2 sat 99% on RA, Afebrile. CBC unremarkable. Chemistry essentially unremarkable. Troponin negative. CRP 10. T-spine X-ray mild compression deformity L1, fusion of compressed midthoracic vertebral bodies at T7-8. CXR negative. MRI T-spine bony fusion of T7 and T8 8 suggestive of chronic osteomyelitis, enhancing epidural collection of T6-T7 8 with some impingement on the cord. Dr. Gongora consulted by ER physician, no likely surgical intervention at this time, recommendation for IV Abx and eval by ID. - Diagnosis (1) Chronic osteomyelitis of spine (2) Intractable pain Review of Systems PAST FAMILY HISTORY: Reviewed. No h/o DM or CAD All other systems reviewed negative except as stated in HPI PMFSH - History History Provided By: Patient - Medical History Medical History: Medical History (Last Updated 02/16/18 @ 19:06 by Lul Dunaway) CVA (cerebral vascular accident) Osteomyelitis - Surgical History Surgical History: Surgical History (Last Updated 02/16/18 @ 19:06 by Lul Dunaway) H/O shoulder surgery Hx of tonsillectomy - Tobacco History Smoking Status: Former smoker Tobacco Type: Cigarettes - Alcohol History How Often Do You Have a Drink Containing Alcohol: Never - Substance Use History Substance History: No History of Abuse - Travel History Recent Travel in the [facility] Within the Last 8 Weeks: No Recent Travel Out of the Country Within the Last 8 Weeks: No - Immunization History Tetanus Immunization: Unable to Assess Hx Influenza Vaccine This Season: Yes Medications and Allergies Active Medications: Active Medications Levofloxacin/Dextrose (Levaquin 750 Mg Premix Inj) 150 mls @ 100 mls/hr IV.SIG ONCE ONE Stop: 02/17/18 00:11 Last Admin: 02/16/18 22:56 Dose: 100 mls/hr Vancomycin HCl 1,000 mg/ (Sodium Chloride) 250 mls @ 250 mls/hr IV.SIG ONCE ONE Stop: 02/16/18 23:59 Allergies Allergy/AdvReac Type Severity Reaction Status Date / Time No Known Allergies Allergy Unverified 06/27/17 08:40 Home Medications Medication Instructions Recorded Confirmed Type No Known Home Medications 02/16/18 02/16/18 History Exam Vital signs: Vital Signs 02/16/18 17:29 02/16/18 19:08 02/16/18 21:06 Temperature 98.4 F Pulse Rate 73 85 Respiratory Rate 14 18 15 Blood Pressure 129/85 142/82 H Pulse Oximetry 99 100 Intake & Output 02/16/18 02/16/18 02/17/18 06:59 18:59 06:59 Intake Total 1000 / 1000 Balance 1000 / 1000 Weight 79.379 kg Intake: IV 1000 / 1000 NS Inj 1,000 ML @ Wide Open IV. 1000 / 1000 SIG BOLUS ONE Rx#:[id number] Narrative: PE: GENERAL: Pleasant young male in no acute distress. SKIN: Focused skin assessment warm and dry. HEENT: PERRLA, EOMI. No scleral icterus or conjunctival pallor. No lid lag or facial droop. CARDIOVASCULAR: Regular rate and rhythm. No obvious murmurs to auscultation. No chest tenderness to palpation. RESPIRATORY: No obvious rhonchi or wheezing. Clear to auscultation. Breath sounds equal bilaterally. GASTROINTESTINAL: Abdomen soft, non-tender, nondistended. BS normal. MUSCULOSKELETAL: Extremities without clubbing, cyanosis, or edema. No obvious deformities. NEUROLOGICAL: Awake, alert and oriented x4. No focal neurologic deficits. Moving both upper and lower extremities spontaneously. PSYCHIATRIC: Appropriate mood and affect. Insight and judgment normal. Results - Labs CBC & Chem 7: 02/16/18 19:35 02/16/18 19:35 Labs: Short CBC 02/16/18 Range/Units 19:35 WBC 8.6 (4.0-11.0) th/mm3 Hgb 14.2 (13.0-17.0) gm/dL Hct 41.9 (39.0-51.0) % Plt Count 427 (150-450) th/mm3 BMP 02/16/18 19:35 Sodium 133 L Potassium 3.8 Chloride 95 L Carbon Dioxide 29.3 BUN 10 Creatinine 0.95 Calcium 9.6 Cardiac Enzymes 02/16/18 Range/Units 19:35 Troponin I Less than 0.02 L (0.02-0.05) ng/mL Liver Function 02/16/18 Range/Units 19:35 Total Bilirubin 0.7 (0.2-1.0) mg/dL AST 15 (15-37) U/L ALT 13 (12-78) U/L Alkaline Phosphatase 70 (45-117) U/L Albumin 3.9 (3.4-5.0) g/dL - Imaging Impressions Thoracic Spine X-Ray 02/16/18 00:00 CONCLUSION: 1. Mild compression deformity involving L1. 2. Fusion of 2 contiguous compressed mid thoracic vertebral bodies likely at T7 -8. Chest X-Ray 02/16/18 19:16 CONCLUSION: Negative examination. Thoracic Spine MRI 02/16/18 19:16 CONCLUSION: 1. Bony fusion of T7 and T8 as well as diffuse enhancement of these fused vertebral bodies and also enhancement of the T6 vertebral body. The findings are suggestive of probable chronic osteomyelitis of these vertebral bodies. There is an enhancing epidural collection extending from the top of T6 to the midportion of the fused T7-8 vertebral body. This enhancing epidural mass results in effacement of the anterior thecal sac, mild spinal stenosis and some impingement upon the anterior aspect of the thoracic cord. Caprini VTE Risk Assessment Caprini VTE Risk Assessment: No/Low Risk (score <= 1) Caprini Risk Assessment Model: Point Value = 1 Point Value = 2 Point Value = 3 Point Value = 5 Age 41-60 Minor surgery BMI > 25 kg/m2 Swollen legs Varicose veins or History of unexplained or recurrent spontaneous Oral contraceptives or hormone replacement Sepsis (< 1 month) Serious lung disease, including pneumonia (< 1 month) Abnormal pulmonary function Acute myocardial infarction Congestive heart failure (< 1 month) History of inflammatory bowel disease Medical patient at bed rest Age 61-74 Arthroscopic surgery Major open surgery (> 45 min) Laparoscopic surgery (> 45 min) Malignancy Confined to bed (> 72 hours) Immobilizing plaster cast Central venous access Age >= 75 History of VTE Family history of VTE Factor V Leiden Prothrombin [id number] Lupus anticoagulant Anticardiolipin antibodies Elevated serum homocysteine Heparin-induced thrombocytopenia Other congenital or acquired thrombophilia Stroke (< 1 month) Elective arthroplasty Hip, pelvis, or leg fracture Acute spinal cord injury (< 1 month) Prophylaxis Regimen: Total Risk Factor Score Risk Level Prophylaxis Regimen 0-1 Low Early ambulation 2 Moderate Order ONE of the following: *Sequential Compression Device (SCD) *Heparin 5000 units SQ BID 3-4 Higher Order ONE of the following medications: *Heparin 5000 units SQ TID *Enoxaparin/Lovenox 40 mg SQ daily (WT < 150 kg, CrCl > 30 mL/min) *Enoxaparin/Lovenox 30 mg SQ daily (WT < 150 kg, CrCl > 10-29 mL/min) *Enoxaparin/Lovenox 30 mg SQ BID (WT < 150 kg, CrCl > 30 mL/min) AND/OR *Sequential Compression Device (SCD) 5 or more Highest Order ONE of the following medications: *Heparin 5000 units SQ TID (Preferred with Epidurals) *Enoxaparin/Lovenox 40 mg SQ daily (WT < 150 kg, CrCl > 30 mL/min) *Enoxaparin/Lovenox 30 mg SQ daily (WT < 150 kg, CrCl > 10-29 mL/min) *Enoxaparin/Lovenox 30 mg SQ BID (WT < 150 kg, CrCl > 30 mL/min) AND *Sequential Compression Device (SCD) Assessment and Plan - Assessment (1) Chronic osteomyelitis of spine Code(s): M46.20 - Osteomyelitis of vertebra, site unspecified Status: Acute (2) Intractable pain Code(s): R52 - Pain, unspecified Status: Acute - Plan A/P: 1. Thoracic Osteomyelitis: Chronic. H/o T7-8 discitis/osteomyelitis, s/p Vanc /Levaquin x45 days on previous admit 06/14/17, now w/ recurrent pain. MRI T- Spine w/ bony fusion T7/8 suggestive of chronic osteomyelitis. Dr. Gongora consulted, no surgical intervention at this time, recommendation for IV Abx and eval by ID. S/p Vanc/Levaquin in ER, will continue w/ IV Abx, follow up w/ ID recommendations. 2. Intractable Pain: secondary to above, analgesics/antiemetics as needed. 3. DVT Prophylaxis: SCD/Teds 4. Social work for d/c planning as needed 5. Case discussed w/ ER physician at length, labs/records/imaging reviewed by me.
--- NOTE | 2018-02-17 00:05 | XR ---
EXAM DATE: 02/16/2018 11:52 PM EDT AGE/SEX: 37 years / Male INDICATIONS: Repeat thoracic spine done upright per neurosurgery. Pain. CLINICAL DATA: This is the patient's subsequent encounter. Patient reports that signs and symptoms h ave been present for 1 day and indicates a pain score of 10/10. MEDICAL/SURGICAL HISTORY: None. None. COMPARISON: [facility] – [place], THORACIC SPINE AP/LAT/SW 3V, 02/16/2018. . FINDINGS: Fusion of 2 mid thoracic vertebral bodies is similar in appearance to prior examination done supine. Mild curvature of the midthoracic spine is more prominent than on the prior exam and measures 12 degr ees. Right side partial bridging paravertebral ossification at T7-9. Pedicles are seen at all levels. CONCLUSION: 1. Repeat examination in standing position demonstrates a 12 degree right midthoracic curvature. 2. Fusion of T7-8. Electronically signed by: Alvaro Martinez MD 02/17/2018 12:03 AM EDT
--- NOTE | 2018-02-17 00:08 | XR ---
EXAM DATE: 02/16/2018 11:59 PM EDT AGE/SEX: 37 years / Male INDICATIONS: Repeat exam done supine per neurosurgery request. Pain. CLINICAL DATA: This is the patient's initial encounter. Patient reports that signs and symptoms have been present for 1 day and indicates a pain score of 10/10. MEDICAL/SURGICAL HISTORY: None. None. COMPAR[place]: [facility] [place] AP/LAT/SW 3V, 02/16/2018. . FINDINGS: There is fusion at T7-8 with mild accentuation of the thoracic kyphosis. Mild curvature of the thorac ic spine convex towards the right measures 8 degrees (2 view examination performed 14 minutes later d emonstrated a 12 degrees scoliosis). Pedicles and transverse processes are intact. Right-sided bridgi ng paravertebral ossification at T7-9. CONCLUSION: The right thoracic curvature is less prominent than on an examination performed 14 minutes later. Electronically signed by: Alvaro Martinez MD 02/17/2018 12:06 AM EDT
[2018-02-17] MEDS: Sod Chloride 0.9% Inj 1,000 ML IV.CONT SCH ×3 (02:42→20:04)
[2018-02-17] MEDS: Morphine Inj 4 MG/ML Vial IV.PUSH PRN ×5 (03:07→20:00)
--- NOTE | 2018-02-17 06:43 | P.CONNS ---
History of Present Illness Service: ED Consult date: 02/17/18 Reason for Consult: back pain, osteomyelitis Primary Care Provider: [facility] Family Provider: No Primary Care Physician Chief Complaint: back pain History of Present Illness: 37yoM who has been treated for thoracic osteomyelitis at the [facility], completed antibiotic course (x 4 months, 1 of which was IV) in October. Known to have fusion of T7/8. Original diagnosis was made by needle biopsy (cultures negative but path positive for osteo). He was in fact discharged from the [facility] by ID last month and his neurosurgeon last week. For the past week, he has had increasing back pain and fever for a few days. MRI taken in ER shows enhancement T6-7-8 with ventral epidural effacement. WBC normal but ESR/CRP elevated. Admitted to Medicine for infectious workup and continued treatment. [facility] - History History Provided By: Patient - Medical History Medical History: Medical History (Last Updated 02/16/18 @ 19:06 by Lul Dunaway) CVA (cerebral vascular accident) Osteomyelitis - Surgical History Surgical History: Surgical History (Last Updated 02/16/18 @ 19:06 by Lul Dunaway) H/O shoulder surgery Hx of tonsillectomy - Tobacco History Second Hand Smoke Exposure: No Tobacco Use In Past 30 Days: No Smoking Status: Former smoker Tobacco Type: Cigarettes - Alcohol History How Often Do You Have a Drink Containing Alcohol: Never - Substance Use History Substance History: No History of Abuse - Travel History Recent Travel in the [place] Within the Last 8 Weeks: No Recent Travel Out of the Country Within the Last 8 Weeks: No - Immunization History Tetanus Immunization: Unable to Assess Hx Influenza Vaccine This Season: Yes Medications and Allergies Active Medications: Active Medications Acetaminophen (Tylenol) 650 mg PO Q4H PRN PRN Reason: Temp > 100.4 Al Hydroxide/Mg Hydroxide (Milk Of Magnesia Liq) 30 ml PO Q12H PRN PRN Reason: Mild Constipation Bisacodyl (Dulcolax Supp) 10 mg RECTAL DAILY PRN PRN Reason: SEVERE CONSITIPATION Cefepime HCl 1,000 mg/ Sodium (Chloride) 100 mls @ 200 mls/hr IV.SIG Q12H [facility] Sodium Chloride (Ns Inj) 1,000 mls @ 100 mls/hr IV.CONT .Q10H [facility] Last Admin: 02/17/18 02:42 Dose: 100 mls/hr Vancomycin HCl 1,000 mg/ (Sodium Chloride) 250 mls @ 250 mls/hr IV.SIG Q8H [facility] Lactulose (Lactulose Liq) 30 ml PO DAILY PRN PRN Reason: SEVERE CONSITIPATION Miscellaneous Information ([facility] Ordered Lab Info) 1 each OTHER ONCE ONE Stop: 02/18/18 07:46 Morphine Sulfate (Morphine Inj) 2 mg IV.PUSH Q4H PRN PRN Reason: PAIN 6-10 Last Admin: 02/17/18 03:07 Dose: 2 mg Ondansetron HCl (Zofran Inj) 4 mg IV.PUSH Q6H PRN PRN Reason: NAUSEA OR VOMITING Pharmacy Profile Note (Vancomycin Consult Pharmacy) 1 each OTHER UNSCH PRN PRN Reason: Pharmacy to dose Senna/Docusate Sodium (Yas-Colace) 1 tab PO BID [facility] Sennosides (Senokot) 17.2 mg PO Q12H PRN PRN Reason: Moderate Constipation Allergies Allergy/AdvReac Type Severity Reaction Status Date / Time No Known Allergies Allergy Unverified 06/27/17 08:40 Home Medications Medication Instructions Recorded Confirmed Type No Known Home Medications 02/16/18 02/16/18 History Exam Vital signs: Vital Signs 02/16/18 17:29 02/16/18 19:08 02/16/18 21:06 Temperature 98.4 F Pulse Rate 73 85 Respiratory Rate 14 18 15 Blood Pressure 129/85 142/82 H Pulse Oximetry 99 100 02/17/18 03:20 02/17/18 04:00 Temperature 98.5 F Pulse Rate 64 55 L Respiratory Rate 20 Blood Pressure 126/74 Pulse Oximetry 100 Intake & Output 02/16/18 02/16/18 02/17/18 06:59 18:59 06:59 Intake Total 1120 / 1120 Output Total 800 / 800 Balance 320 / 320 Weight 79.379 kg 79.2 kg Intake: IV 1000 / 1000 NS Inj 1,000 ML @ Wide Open IV. 1000 / 1000 SIG BOLUS ONE Rx#:[id number] Oral 120 / 120 Output: Urine 800 / 800 Other: # Voids 1 Date of Last Bowel Movement 02/16/18 Weight On Admission 79.379 kg Narrative: A&O x 3 CN II-XII intact Motor 5/5 UE/LE Reflexes symmetric physiologic Gait wnl Results - Laboratory Findings CBC and BMP: 02/16/18 19:35 02/16/18 19:35 Abnormal lab findings: Abnormal Labs 02/16/18 02/16/18 19:35 19:35 MPV 6.0 L Neut % (Auto) 72.7 H [place] % (Auto) 8.1 H Sodium 133 L Chloride 95 L Troponin I Less than 0.02 L C-Reactive Protein 10.00 H Total Protein 10.0 H - Diagnostic Findings Additional findings: MRI T-spine with osteomyelitis at T6/7/8, mild ventral epidural component T-spine xrays standing and supine show progression of kyphosis from 30 to 40 degrees Assessment and Plan - Plan Thoracic osteomyelitis, requiring further treatment. Pain arising from likely mild dynamic instability in face of recurrent osteomyelitis. Plan: Consider TLSO bracing. Activity as tolerated with or without brace as tolerated by pain. Instrumentation in the face of active infection not advised Agree with ID consultation. ?Need for repeat biopsy vs. simply continuing existing antibiotics. He was not in pain until one week ago and it appears his original treatment did work through Oct, 2017. 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
[2018-02-17] MEDS: Vancomycin Inj 1,000 MG in Sodium Chlor 0.9% Inj 250 ML IV.SIG SCH ×2 (08:00→15:51)
[2018-02-17 08:24] LABS: Baso % (Auto) 0.6 % (0.0-2.0); Eos % (Auto) 0.7 % (0.0-4.0); Hematocrit 34.9 % (39.0-51.0); Hemoglobin 12.1 gm/dL (13.0-17.0); Lymph # (Auto) 1.4 th/mm3 (1.0-4.8); Lymph % (Auto) 26.6 % (9.0-44.0); Mean Corpuscular HGB Conc 34.5 % (32.0-36.0); Mean Corpuscular Hemoglobin 28.6 pg (27.0-34.0); Mean Corpuscular Volume 82.9 fL (80.0-100.0); Mean Platelet Volume 6.2 fL (7.0-11.0); Mono # (Auto) 0.5 th/mm3 (0.0-0.9); Mono % (Auto) 9.3 % (0.0-8.0); Neut # (Auto) 3.4 th/mm3 (1.8-7.7); Neut % (Auto) 62.8 % (16.0-70.0); Platelet Count 320 th/mm3 (150-450); Red Blood Count 4.21 mil/mm3 (4.50-5.90); Red Cell Distribution Width 13.4 % (11.6-17.2); White Blood Count 5.4 th/mm3 (4.0-11.0)
[2018-02-17 09:10] LABS: Alanine Aminotransferase 9 U/L (12-78); Albumin 2.7 g/dL (3.4-5.0); Alkaline Phosphatase 49 U/L (45-117); Anion Gap 9 meq/L (5-15); Aspartate Aminotransferase 9 U/L (15-37); Blood Urea Nitrogen 6 mg/dL (7-18); Calcium 8.5 mg/dL (8.5-10.1); Carbon Dioxide 28.1 meq/L (21.0-32.0); Chloride 101 meq/L (98-107); Glomerular Filtration Rate Greater Than 89 mL/min (>89); Glucose,Random 85 mg/dL (74-106); Sodium 138 meq/L (136-145); Total Protein 7.2 g/dL (6.4-8.2)
[2018-02-17] MEDS: Senna/Docusate Sodium 8.6/50 MG Tablet PO SCH ×2 (09:14→20:02)
--- NOTE | 2018-02-17 14:33 | P.PN ---
Subjective Interval history: Follow-up thoracic osteomyelitis February 17, 2018-patient seen and examined, complains of inadequate pain control. Still complaining of back pain. currently afebrile. Physical Exam Vital signs: Vital Signs 02/16/18 17:29 02/16/18 19:08 02/16/18 21:06 Temperature 98.4 F Pulse Rate 73 85 Respiratory Rate 14 18 15 Blood Pressure 129/85 142/82 H Pulse Oximetry 99 100 02/17/18 03:20 02/17/18 04:00 02/17/18 08:00 Temperature 98.5 F 98.0 F Pulse Rate 64 55 L 62 Respiratory Rate 20 18 Blood Pressure 126/74 126/79 Pulse Oximetry 100 100 02/17/18 09:00 02/17/18 10:47 02/17/18 12:00 Temperature 97.7 F Pulse Rate 65 67 Respiratory Rate 22 18 Blood Pressure 121/80 Pulse Oximetry 98 02/17/18 12:53 Temperature Pulse Rate Respiratory Rate 22 Blood Pressure Pulse Oximetry Intake & Output 02/16/18 02/17/18 02/17/18 18:59 06:59 18:59 Intake Total 1120 / 1120 1750 / 1750 Output Total 800 / 800 Balance 320 / 320 1750 / 1750 Weight 79.379 kg 79.2 kg Intake: IV 1000 / 1000 1750 / 1750 NS Inj 1,000 ML @ 100 mls/hr IV 1000 / 1000 .CONT .Q10H [facility] Rx#:[id number] Maxipime Inj 1,000 MG In NS Inj 100 / 100 100 ML @ 200 mls/hr IV.SIG Q12H [facility] Rx#:[id number] Levaquin 750 mg Premix Inj 150 150 / 150 ML @ 100 mls/hr IV.SIG ONCE ONE Rx#:[id number] NS Inj 1,000 ML @ Wide Open IV. 1000 / 1000 SIG BOLUS ONE Rx#:[id number] Vancomycin Inj 1,000 MG In NS 500 / 500 Inj 250 ML @ 250 mls/hr IV.SIG ONCE ONE Rx#:[id number] Oral 120 / 120 Output: Urine 800 / 800 Other: # Voids 1 Date of Last Bowel Movement 02/16/18 02/16/18 Weight On Admission 79.379 kg Narrative: GENERAL: NAD SKIN: Warm and dry. HEAD: Normocephalic. EYES: No scleral icterus. No injection or drainage. NECK: Supple, trachea midline. No JVD or lymphadenopathy. CARDIOVASCULAR: Regular rate and rhythm without murmurs, gallops, or rubs. RESPIRATORY: Breath sounds equal bilaterally. No accessory muscle use. GASTROINTESTINAL: Abdomen soft, non-tender, nondistended. MUSCULOSKELETAL: No cyanosis, or edema. BACK: +tender without obvious deformity. No CVA tenderness. Results - Labs CBC & Chem 7: 02/17/18 07:05 02/17/18 07:05 Laboratory Results - last 24 hr 02/16/18 02/16/18 02/16/18 19:30 19:35 19:35 WBC 8.6 RBC 5.02 Hgb 14.2 Hct 41.9 MCV 83.5 MCH 28.3 MCHC 33.9 RDW 13.5 Plt Count 427 MPV 6.0 L Neut % (Auto) 72.7 H Lymph % (Auto) 18.5 [place] % (Auto) 8.1 H Eos % (Auto) 0.3 Baso % (Auto) 0.4 Neut # (Auto) 6.3 Lymph # (Auto) 1.6 [place] # (Auto) 0.7 Eos # (Auto) 0.0 Baso # (Auto) 0.0 WBC Differential . Differential Comment Auto diff final ESR 13 Sodium 133 L Potassium 3.8 Chloride 95 L Carbon Dioxide 29.3 Anion Gap 9 BUN 10 Creatinine 0.95 Estimated GFR Greater than 89 Random Glucose 92 Calcium 9.6 Total Bilirubin 0.7 AST 15 ALT 13 Alkaline Phosphatase 70 Troponin I Less than 0.02 L C-Reactive Protein 10.00 H Total Protein 10.0 H Albumin 3.9 02/17/18 02/17/18 07:05 07:05 WBC 5.4 RBC 4.21 L Hgb 12.1 L D Hct 34.9 L MCV 82.9 MCH 28.6 MCHC 34.5 RDW 13.4 Plt Count 320 MPV 6.2 L Neut % (Auto) 62.8 Lymph % (Auto) 26.6 [place] % (Auto) 9.3 H Eos % (Auto) 0.7 Baso % (Auto) 0.6 Neut # (Auto) 3.4 Lymph # (Auto) 1.4 [place] # (Auto) 0.5 Eos # (Auto) 0.0 Baso # (Auto) 0.0 WBC Differential . Differential Comment Auto diff final ESR Sodium 138 Potassium 4.0 Chloride 101 Carbon Dioxide 28.1 Anion Gap 9 BUN 6 L Creatinine 0.69 Estimated GFR Greater than 89 Random Glucose 85 Calcium 8.5 D Total Bilirubin 0.6 AST 9 L ALT 9 L Alkaline Phosphatase 49 Troponin I C-Reactive Protein Total Protein 7.2 D Albumin 2.7 L D Microbiology 02/16/18 19:35 Blood - Peripheral Aerobic Blood Culture - Preliminary No growth in 1 day 02/16/18 19:35 Blood - Peripheral Anaerobic Blood Culture - Preliminary No growth in 1 day 02/16/18 19:35 Blood - Peripheral Aerobic Blood Culture - Preliminary No growth in 1 day 02/16/18 19:35 Blood - Peripheral Anaerobic Blood Culture - Preliminary No growth in 1 day - Imaging Impressions Thoracic Spine X-Ray 02/16/18 00:00 CONCLUSION: 1. Mild compression deformity involving L1. 2. Fusion of 2 contiguous compressed mid thoracic vertebral bodies likely at T7 -8. Thoracic Spine X-Ray 02/16/18 00:00 CONCLUSION: The right thoracic curvature is less prominent than on an examination performed 14 minutes later. Chest X-Ray 02/16/18 19:16 CONCLUSION: Negative examination. Thoracic Spine MRI 02/16/18 19:16 CONCLUSION: 1. Bony fusion of T7 and T8 as well as diffuse enhancement of these fused vertebral bodies and also enhancement of the T6 vertebral body. The findings are suggestive of probable chronic osteomyelitis of these vertebral bodies. There is an enhancing epidural collection extending from the top of T6 to the midportion of the fused T7-8 vertebral body. This enhancing epidural mass results in effacement of the anterior thecal sac, mild spinal stenosis and some impingement upon the anterior aspect of the thoracic cord. Thoracic Spine X-Ray 02/16/18 23:14 CONCLUSION: 1. Repeat examination in standing position demonstrates a 12 degree right midthoracic curvature. 2. Fusion of T7-8. Assessment and Plan - Assessment (1) Chronic osteomyelitis of spine Code(s): M46.20 - Osteomyelitis of vertebra, site unspecified Status: Acute (2) Intractable pain Code(s): R52 - Pain, unspecified Status: Acute - Plan 37-year-old man with 1. Thoracic Osteomyelitis: Chronic. H/o T7-8 discitis/osteomyelitis, s/p Vanc /Levaquin x45 days on previous admit 06/14/17, now w/ recurrent pain. MRI T- Spine w/ bony fusion T7/8 suggestive of chronic osteomyelitis. Appreciate input from neurosurgery, no surgical intervention at this time. S/p Vanc/ Levaquin in ER, continue w/ IV Abx, follow up w/ ID recommendations. 2. Intractable Pain: secondary to above, analgesics/antiemetics as needed. PT to treat and eval 3. DVT Prophylaxis: SCD/Teds
[2018-02-17 16:50] LABS: Bilirubin,Urine Negative (Negative); Clarity,Urine Clear (Clear); Color,Urine Straw (Yellw/Straw); Glucose,Urine (UA) Negative (Negative); Leukocyte Esterase,Urine Negative (Negative); Nitrite,Urine Negative (Negative); Specific Gravity,Urine 1.011 (1.002-1.035)
[2018-02-17 16:56] LABS: Amphetamine Screen,Urine Neg (Neg); Barbiturate Screen,Urine Neg (Neg); Cannabinoid Screen,Urine Neg (Neg); Cocaine Screen,Urine Neg (Neg)
[2018-02-17 17:03] LABS: Opiate Screen,Urine Pos (Neg)
--- NOTE | 2018-02-17 18:10 | P.CONID ---
History of Present Illness Service: ID Consult date: 02/17/18 Requesting Physician: Iman Lizarraga Reason for Consult: osteomeylitis Primary Care Provider: Physician [facility] Family Provider: No Primary Care Physician Chief Complaint: back pain History of Present Illness: Pt is known to me 37 yo male, [place] vet, no IVDU ever presrtned with back pain earlier this year and had finding ssuspicious forn T7-T8 osteomyelitis s/p biopsy with negative culture and path cw acute osteo Pt completed treatment with empiric abx (televancin, levaquin) with near complete resolution of pain He also reports normal MRI in November, however I have no oficcial repocds He was discharged by his ID and neurosurgeon His pain returen few weeks ago and he also noticed some fevers and chills On presentation no fever, normal WBC and normal ESR MRI showed osteo and epidural effsuion - fusion of T7 and T8 as well as diffuse enhancement of these fused vertebral bodies and also enhancement of the T6 vertebral body. The findings are suggestive of probable chronic osteomyelitis of these vertebral bodies. There is an enhancing epidural collection extending from the top of T6 to the midportion of the fused T7-8 vertebral body. This enhancing epidural mass results in effacement of the anterior thecal sac, mild spinal stenosis and some impingement upon the anterior aspect of the thoracic cord. Started on empiric abx : vanco + cefepime Pt was seen by neurosurgeon , who recommended bx vs empiric abx. all his cultures from June resulted negative including AFB and fungal Review of Systems All other systems reviewed negative except as stated in HPI PMFSH - History History Provided By: Patient - Medical History Medical History: Medical History (Last Reviewed 02/17/18 @ 18:25 by April Oates MD) CVA (cerebral vascular accident) Osteomyelitis - Surgical History Surgical History: Surgical History (Last Reviewed 02/17/18 @ 18:25 by April Oates MD) H/O shoulder surgery Hx of tonsillectomy - Family History Family History: Family History (Last Updated 02/17/18 @ 18:25 by April Oates MD) Other Family history non-contributory - Social History I have reviewed the patient's Social History: Yes - Tobacco History Second Hand Smoke Exposure: No Tobacco Use In Past 30 Days: No Smoking Status: Former smoker Tobacco Type: Cigarettes - Alcohol History How Often Do You Have a Drink Containing Alcohol: Never - Substance Use History Substance History: No History of Abuse - Travel History Recent Travel in the [place] Within the Last 8 Weeks: No Recent Travel Out of the Country Within the Last 8 Weeks: No - Immunization History Tetanus Immunization: Unable to Assess Hx Influenza Vaccine This Season: Yes Medications and Allergies Active Medications: Active Medications Acetaminophen (Tylenol) 650 mg PO Q4H PRN PRN Reason: Temp > 100.4 Hydrocodone Bitart/Acetaminophen ([place] 7.5/325) 1 tab PO Q4H PRN PRN Reason: BREAKTHROUGH PAIN Last Admin: 02/17/18 16:30 Dose: 1 tab Al Hydroxide/Mg Hydroxide (Milk Of Magnesia Liq) 30 ml PO Q12H PRN PRN Reason: Mild Constipation Bisacodyl (Dulcolax Supp) 10 mg RECTAL DAILY PRN PRN Reason: SEVERE CONSITIPATION Sodium Chloride (Ns Inj) 1,000 mls @ 100 mls/hr IV.CONT .Q10H [facility] Last Admin: 02/17/18 10:53 Dose: 100 mls/hr Lactulose (Lactulose Liq) 30 ml PO DAILY PRN PRN Reason: SEVERE CONSITIPATION Miscellaneous Information ([facility] Ordered Lab Info) 1 each OTHER ONCE ONE Stop: 02/18/18 07:46 Morphine Sulfate (Morphine Inj) 2 mg IV.PUSH Q4H PRN PRN Reason: PAIN 6-10 Last Admin: 02/17/18 14:45 Dose: 2 mg Ondansetron HCl (Zofran Inj) 4 mg IV.PUSH Q6H PRN PRN Reason: NAUSEA OR VOMITING Senna/Docusate Sodium (Yas-Colace) 1 tab PO BID [facility] Last Admin: 02/17/18 09:14 Dose: Not Given Sennosides (Senokot) 17.2 mg PO Q12H PRN PRN Reason: Moderate Constipation Allergies Allergy/AdvReac Type Severity Reaction Status Date / Time No Known Allergies Allergy Unverified 06/27/17 08:40 Home Medications Medication Instructions Recorded Confirmed Type No Known Home Medications 02/16/18 02/16/18 History Exam Vital signs: Vital Signs 02/16/18 19:08 02/16/18 21:06 02/17/18 03:20 Temperature 98.5 F Pulse Rate 85 64 Respiratory Rate 18 15 20 Blood Pressure 142/82 H 126/74 Pulse Oximetry 100 100 02/17/18 04:00 02/17/18 08:00 02/17/18 09:00 Temperature 98.0 F Pulse Rate 55 L 62 65 Respiratory Rate 18 Blood Pressure 126/79 Pulse Oximetry 100 02/17/18 10:47 02/17/18 12:00 02/17/18 12:53 Temperature 97.7 F Pulse Rate 67 Respiratory Rate 22 18 22 Blood Pressure 121/80 Pulse Oximetry 98 02/17/18 16:00 Temperature 97.9 F Pulse Rate 63 Respiratory Rate 18 Blood Pressure 115/68 Pulse Oximetry 97 Intake & Output 02/16/18 02/17/18 02/17/18 18:59 06:59 18:59 Intake Total 1120 / 1120 2000 / 2000 Output Total 800 / 800 300 / 300 Balance 320 / 320 1700 / 1700 Weight 79.379 kg 79.2 kg Intake: IV 1000 / 1000 2000 / 2000 NS Inj 1,000 ML @ 100 mls/hr IV 1000 / 1000 .CONT .Q10H SHIKHA Rx#:[id number] Maxipime Inj 1,000 MG In NS Inj 100 / 100 100 ML @ 200 mls/hr IV.SIG Q12H SHIKHA Rx#:[id number] Levaquin 750 mg Premix Inj 150 150 / 150 ML @ 100 mls/hr IV.SIG ONCE ONE Rx#:[id number] NS Inj 1,000 ML @ Wide Open IV. 1000 / 1000 SIG BOLUS ONE Rx#:[id number] Vancomycin Inj 1,000 MG In NS 750 / 750 Inj 250 ML @ 250 mls/hr IV.SIG Q8H SHIKHA Rx#:[id number] Oral 120 / 120 Output: Urine 800 / 800 300 / 300 Other: # Voids 1 Date of Last Bowel Movement 02/16/18 02/16/18 Weight On Admission 79.379 kg - Constitutional no acute distress, average body habitus - Routine HEENT Exam Head: Present: normocephalic, atraumatic Eye: Present: EOMI, PERRL ENT: Present: mucous membranes moist, oropharynx clear, dentition normal - Routine Neck Exam Present: supple, full ROM - Routine Respiratory Exam Present: CTA bilaterally Comments: good effrot - Routine Cardiovascular Exam Present: RRR, S1, S2 Comments: no murmurs, rubs, gallops - Routine Abdominal Exam Present: soft, normoactive bowel sounds Comments: no organomegaly or masses - Routine Extremities Exam Comments: no cynosis, clubbing or edema - Routine Back/Spine/Pelvis Exam Back/Spine: Present: full ROM, paraspinal tenderness (mid thoracic), vertebral tenderness (mid thoracic) - Routine Skin Exam Present: intact, dry, warm - Routine Neurological Exam Present: alert, oriented X3, CN II-XII intact, moving all extremities, vision grossly intact, hearing grossly intact, normal speech - Routine Psychiatric Exam Present: normal affect, normal thought process, cooperative Results - Labs CBC & Chem 7: 02/17/18 07:05 02/17/18 07:05 Labs: Laboratory Results - last 24 hr 02/16/18 02/16/18 02/16/18 19:30 19:35 19:35 WBC 8.6 RBC 5.02 Hgb 14.2 Hct 41.9 MCV 83.5 MCH 28.3 MCHC 33.9 RDW 13.5 Plt Count 427 MPV 6.0 L Neut % (Auto) 72.7 H Lymph % (Auto) 18.5 [place] % (Auto) 8.1 H Eos % (Auto) 0.3 Baso % (Auto) 0.4 Neut # (Auto) 6.3 Lymph # (Auto) 1.6 [place] # (Auto) 0.7 Eos # (Auto) 0.0 Baso # (Auto) 0.0 WBC Differential . Differential Comment Auto diff final ESR 13 Sodium 133 L Potassium 3.8 Chloride 95 L Carbon Dioxide 29.3 Anion Gap 9 BUN 10 Creatinine 0.95 Estimated GFR Greater than 89 Random Glucose 92 Calcium 9.6 Total Bilirubin 0.7 AST 15 ALT 13 Alkaline Phosphatase 70 Troponin I Less than 0.02 L C-Reactive Protein 10.00 H Total Protein 10.0 H Albumin 3.9 Urine Color Urine Clarity Urine pH Ur Specific [place] Urine Protein Urine Glucose (UA) Urine Ketones Urine Occult Blood Urine Nitrate Urine Bilirubin Urine Urobilinogen Ur Leukocyte Esterase Urine RBC Urine WBC Micro UA Comment Ur Microscopic Review Urine Culture Comments Urine Opiates Screen Ur Barbiturates Screen Ur Amphetamines Screen U Benzodiazepines Scrn Urine Cocaine Screen U Cannabinoids Screen 02/17/18 02/17/18 02/17/18 07:05 07:05 14:30 WBC 5.4 RBC 4.21 L Hgb 12.1 L D Hct 34.9 L MCV 82.9 MCH 28.6 MCHC 34.5 RDW 13.4 Plt Count 320 MPV 6.2 L Neut % (Auto) 62.8 Lymph % (Auto) 26.6 [place] % (Auto) 9.3 H Eos % (Auto) 0.7 Baso % (Auto) 0.6 Neut # (Auto) 3.4 Lymph # (Auto) 1.4 [place] # (Auto) 0.5 Eos # (Auto) 0.0 Baso # (Auto) 0.0 WBC Differential . Differential Comment Auto diff final ESR Sodium 138 Potassium 4.0 Chloride 101 Carbon Dioxide 28.1 Anion Gap 9 BUN 6 L Creatinine 0.69 Estimated GFR Greater than 89 Random Glucose 85 Calcium 8.5 D Total Bilirubin 0.6 AST 9 L ALT 9 L Alkaline Phosphatase 49 Troponin I C-Reactive Protein Total Protein 7.2 D Albumin 2.7 L D Urine Color Urine Clarity Urine pH Ur Specific [place] Urine Protein Urine Glucose (UA) Urine Ketones Urine Occult Blood Urine Nitrate Urine Bilirubin Urine Urobilinogen Ur Leukocyte Esterase Urine RBC Urine WBC Micro UA Comment Ur Microscopic Review Urine Culture Comments Urine Opiates Screen Pos H Ur Barbiturates Screen Neg Ur Amphetamines Screen Neg U Benzodiazepines Scrn Neg Urine Cocaine Screen Neg U Cannabinoids Screen Neg 02/17/18 14:30 WBC RBC Hgb Hct MCV MCH MCHC RDW Plt Count MPV Neut % (Auto) Lymph % (Auto) [place] % (Auto) Eos % (Auto) Baso % (Auto) Neut # (Auto) Lymph # (Auto) [place] # (Auto) Eos # (Auto) Baso # (Auto) WBC Differential Differential Comment ESR Sodium Potassium Chloride Carbon Dioxide Anion Gap BUN Creatinine Estimated GFR Random Glucose Calcium Total Bilirubin AST ALT Alkaline Phosphatase Troponin I C-Reactive Protein Total Protein Albumin Urine Color Straw Urine Clarity Clear Urine pH 7.0 Ur Specific [place] 1.011 Urine Protein Negative Urine Glucose (UA) Negative Urine Ketones Negative Urine Occult Blood Negative Urine Nitrate Negative Urine Bilirubin Negative Urine Urobilinogen Less than 2 Ur Leukocyte Esterase Negative Urine RBC Less than 1 Urine WBC 1 Micro UA Comment Culture not ind Ur Microscopic Review Not Reportable Urine Culture Comments Culture not ind Urine Opiates Screen Ur Barbiturates Screen Ur Amphetamines Screen U Benzodiazepines Scrn Urine Cocaine Screen U Cannabinoids Screen - Imaging Impressions Thoracic Spine X-Ray 02/16/18 00:00 CONCLUSION: 1. Mild compression deformity involving L1. 2. Fusion of 2 contiguous compressed mid thoracic vertebral bodies likely at T7 -8. Thoracic Spine X-Ray 02/16/18 00:00 CONCLUSION: The right thoracic curvature is less prominent than on an examination performed 14 minutes later. Chest X-Ray 02/16/18 19:16 CONCLUSION: Negative examination. Thoracic Spine MRI 02/16/18 19:16 CONCLUSION: 1. Bony fusion of T7 and T8 as well as diffuse enhancement of these fused vertebral bodies and also enhancement of the T6 vertebral body. The findings are suggestive of probable chronic osteomyelitis of these vertebral bodies. There is an enhancing epidural collection extending from the top of T6 to the midportion of the fused T7-8 vertebral body. This enhancing epidural mass results in effacement of the anterior thecal sac, mild spinal stenosis and some impingement upon the anterior aspect of the thoracic cord. Thoracic Spine X-Ray 02/16/18 23:14 CONCLUSION: 1. Repeat examination in standing position demonstrates a 12 degree right midthoracic curvature. 2. Fusion of T7-8. Assessment and Plan - Plan Chronic culture negative vertebral ostreomyelits Responded to empiric vanco+ levaquine cvlinically, however relapsed T spine osteo and epidural phelgnome on MRI dw Dr Lomeli. IR will attempt to byopsy same approach as last time for culture on Monday fu blood clx Will hold abx untill material obtained. dw pt dw IR
[2018-02-18] MEDS: Morphine Inj 4 MG/ML Vial IV.PUSH PRN ×6 (00:25→23:22)
[2018-02-18] MEDS: Sod Chloride 0.9% Inj 1,000 ML IV.CONT SCH ×3 (06:05→17:06)
[2018-02-18] MEDS ORDERED: Pharmacy Ordered Lab Info OTHER ONE (07:45)
[2018-02-18] MEDS: Senna/Docusate Sodium 8.6/50 MG Tablet PO SCH ×2 (09:29→20:10)
--- NOTE | 2018-02-18 12:09 | P.PN ---
Subjective Interval history: Follow-up thoracic osteomyelitis February 17, 2018-patient seen and examined, complains of inadequate pain control. Still complaining of back pain. currently afebrile. February 18, 2018-patient seen and examined, currently off antibiotics per ID pending biopsy next week for culture. Only pain with ambulation or standing. Afebrile. Physical Exam Vital signs: Vital Signs 02/17/18 12:53 02/17/18 16:00 02/17/18 20:00 Temperature 97.9 F 97.6 F Pulse Rate 63 67 Respiratory Rate 22 18 22 Blood Pressure 115/68 160/91 H Pulse Oximetry 97 98 02/18/18 00:00 02/18/18 04:00 02/18/18 08:00 Temperature 97.3 F L 97.8 F 98.3 F Pulse Rate 61 52 L 58 L Respiratory Rate 18 16 18 Blood Pressure 118/80 126/87 132/87 Pulse Oximetry 99 98 98 02/18/18 09:00 Temperature Pulse Rate 58 L Respiratory Rate Blood Pressure Pulse Oximetry Intake & Output 02/17/18 02/18/18 02/18/18 18:59 06:59 18:59 Intake Total 3000 / 3000 3200 / 3200 1999 Output Total 1100 / 1100 1974 Balance 1900 / 1900 1225 / 1225 1999 Weight 82.2 kg Intake: IV 1999 NS Inj 1,000 ML @ 100 mls/hr IV 1000 / 1000 1999 .CONT .Q10H [facility] Rx#:[id number] Maxipime Inj 1,000 MG In NS Inj 100 / 100 100 ML @ 200 mls/hr IV.SIG Q12H [facility] Rx#:[id number] Levaquin 750 mg Premix Inj 150 150 / 150 ML @ 100 mls/hr IV.SIG ONCE ONE Rx#:[id number] Vancomycin Inj 1,000 MG In NS 750 / 750 Inj 250 ML @ 250 mls/hr IV.SIG Q8H SHIKHA Rx#:[id number] Oral 1000 / 1000 1200 / 1200 Output: Urine 1100 / 1100 1974 Other: # Voids 1 Date of Last Bowel Movement 02/16/18 02/16/18 02/16/18 Narrative: GENERAL: NAD SKIN: Warm and dry. HEAD: Normocephalic. EYES: No scleral icterus. No injection or drainage. NECK: Supple, trachea midline. No JVD or lymphadenopathy. CARDIOVASCULAR: Regular rate and rhythm without murmurs, gallops, or rubs. RESPIRATORY: Breath sounds equal bilaterally. No accessory muscle use. GASTROINTESTINAL: Abdomen soft, non-tender, nondistended. MUSCULOSKELETAL: No cyanosis, or edema. BACK: +tender without obvious deformity. No CVA tenderness. Results - Labs CBC & Chem 7: 02/17/18 07:05 02/17/18 07:05 Laboratory Results - last 24 hr 02/17/18 02/17/18 14:30 14:30 Urine Color Straw Urine Clarity Clear Urine pH 7.0 Ur Specific [place] 1.011 Urine Protein Negative Urine Glucose (UA) Negative Urine Ketones Negative Urine Occult Blood Negative Urine Nitrate Negative Urine Bilirubin Negative Urine Urobilinogen Less than 2 Ur Leukocyte Esterase Negative Urine RBC Less than 1 Urine WBC 1 Micro UA Comment Culture not ind Ur Microscopic Review Not Reportable Urine Culture Comments Culture not ind Urine Opiates Screen Pos H Ur Barbiturates Screen Neg Ur Amphetamines Screen Neg U Benzodiazepines Scrn Neg Urine Cocaine Screen Neg U Cannabinoids Screen Neg Microbiology 02/16/18 19:35 Blood - Peripheral Aerobic Blood Culture - Preliminary No growth in 2 days 02/16/18 19:35 Blood - Peripheral Anaerobic Blood Culture - Preliminary No growth in 2 days 02/16/18 19:35 Blood - Peripheral Aerobic Blood Culture - Preliminary No growth in 2 days 02/16/18 19:35 Blood - Peripheral Anaerobic Blood Culture - Preliminary No growth in 2 days Assessment and Plan - Assessment (1) Chronic osteomyelitis of spine Code(s): M46.20 - Osteomyelitis of vertebra, site unspecified Status: Acute (2) Intractable pain Code(s): R52 - Pain, unspecified Status: Acute - Plan 37-year-old man with 1. Thoracic Osteomyelitis: Chronic. H/o T7-8 discitis/osteomyelitis, s/p Vanc /Levaquin x45 days on previous admit 06/14/17, now w/ recurrent pain. MRI T- Spine w/ bony fusion T7/8 suggestive of chronic osteomyelitis. Appreciate input from neurosurgery, no surgical intervention at this time. S/p Vanc/ Levaquin in ER, however IV Abx to be on hold per ID pending biopsy for culture next week by interventional radiology. 2. Intractable Pain: secondary to above, analgesics/antiemetics as needed. PT to treat and eval 3. DVT Prophylaxis: SCD/Teds
[2018-02-19] MEDS: Sod Chloride 0.9% Inj 1,000 ML IV.CONT SCH ×2 (00:30→17:01)
[2018-02-19] MEDS: Morphine Inj 4 MG/ML Vial IV.PUSH PRN ×4 (03:38→23:04)
--- NOTE | 2018-02-19 09:34 | P.PNIM ---
Subjective Interval history: Mr. Bernstein was afebrile with stable vital signs (borderline low HR ~50). Patient states that he is doing well at this time and that his pain is controlled. No chest pain, shortness of breath, abnormal bowel movements, or abnormal urination. Physical Exam Vital signs: Vital Signs 02/18/18 12:00 02/18/18 16:00 02/18/18 18:59 Temperature 97.7 F 98.3 F Pulse Rate 59 L 53 L Respiratory Rate 18 18 8 L Blood Pressure 107/64 105/59 L Pulse Oximetry 97 99 02/18/18 20:00 02/19/18 00:00 02/19/18 04:00 Temperature 98.4 F 97.8 F 97.5 F L Pulse Rate 69 50 L 47 L Respiratory Rate 16 16 16 Blood Pressure 116/68 123/69 116/73 Pulse Oximetry 97 98 99 Intake & Output 02/18/18 02/19/18 02/19/18 18:59 06:59 18:59 Intake Total 4420 / 4420 Output Total 1974 Balance 2445 / 2445 Weight 82 kg Intake: IV 1999 NS Inj 1,000 ML @ 100 mls/hr IV 1999 .CONT .Q10H SHIKHA Rx#:[id number] Oral 2420 / 2420 Output: Urine 1974 Other: # Voids 3 3 Date of Last Bowel Movement 02/16/18 02/16/18 # Bowel Movements 0 Narrative: GENERAL: NAD SKIN: No visible lesions EYES: EOM grossly I CARDIOVASCULAR: Regular rate and rhythm without murmurs; grossly normal perfusion GASTROINTESTINAL: Abdomen soft, non-tender, nondistended. Normal bowel sounds MUSCULOSKELETAL: No LE edema. No calf asymmetry Neuro: Awake and alert. Grossly normal CN; grossly normal peripheral motor/ sensory function Results - Labs CBC & Chem 7: 02/17/18 07:05 02/17/18 07:05 Microbiology 02/16/18 19:35 Blood - Peripheral Aerobic Blood Culture - Preliminary No growth in 2 days 02/16/18 19:35 Blood - Peripheral Anaerobic Blood Culture - Preliminary No growth in 2 days 02/16/18 19:35 Blood - Peripheral Aerobic Blood Culture - Preliminary No growth in 2 days 02/16/18 19:35 Blood - Peripheral Anaerobic Blood Culture - Preliminary No growth in 2 days Assessment and Plan - Assessment (1) Chronic osteomyelitis of spine Code(s): M46.20 - Osteomyelitis of vertebra, site unspecified Status: Acute (2) Intractable pain Code(s): R52 - Pain, unspecified Status: Acute - Plan Mr. Bernstein is a 37-year-old man with: Thoracic Osteomyelitis Impression: Chronic. H/o T7-8 discitis/osteomyelitis, s/p Vanc/Levaquin x45 days on previous admit 06/14/17, now w/ recurrent pain. thoracic XR- mild compression deformity involving L1. Fusion of 2 contiguous mid thoracic vertebral bodies at T7-8 CXR negative MRI T-Spine w/ bony fusion T7/8 suggestive of chronic osteomyelitis. -Appreciate input from neurosurgery, no surgical intervention at this time -ID consulted -IR attempt of biopsy by same approach as last time for culture on Monday -Follow blood cultures -Start antibiotics after biopsy obtained Intractable Pain: secondary to above, analgesics/antiemetics as needed -PT to treat and eval DVT Prophylaxis: SCD/Teds while awaiting biopsy Code Status: Full code
[2018-02-19 10:28] LABS: INR 1.1 Ratio
[2018-02-19] MEDS ORDERED: fentaNYL Citrate Inj 250 MCG/5 ML Ampul ONE (12:41)
[2018-02-19] MEDS ORDERED: fentaNYL Citrate Inj 100 MCG/2 ML Ampul ONE (13:09)
[2018-02-19] MEDS ORDERED: HYDROmorphone PF Inj 2 MG/ML Vial ONE (13:12)
[2018-02-19] MEDS ORDERED: Bupivacaine PF 0.75% Inj 10 ML Vial ONE (13:23)
--- NOTE | 2018-02-19 14:41 | P.RAD ---
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 Both show abnormal signal on MRI. Biopsy of T9 performed via a left unilateral transpedicular approach. Sample for histology and microbiology obtained. Pt tolerated the procedure well. See PACS Report for procedural detail/treatment.
--- NOTE | 2018-02-19 15:14 | IR ---
EXAM DATE: 02/19/2018 3:02 PM EDT AGE/SEX: 37 years / Male INDICATIONS: Patient with history of Chronic Osteomyelitis in need of Thoracic level 8/9 bone biopsy for evaluation. CLINICAL DATA: This is the patient's initial encounter. Patient reports that signs and symptoms have been present for 4 - 6 days and indicates a pain score of 8/10. MEDICAL/SURGICAL HISTORY: Osteomyelitis. CVA, Tonsillectomy. Shoulder surgery. [place] [facility] [place] & W/O CON, 02/16/2018. . FLUORO TIME (min): 5.4 IMAGE SERIES: 6 SEDATION TIME (min): 40 MEDICATION(S): 7 mg midazolam (Versed) IV 350 mcg fentanyl (Sublimaze) IV 2 mg hydromorphone (Dilaudid) IV DEVICE(s): 13 gauge Paulina Max bone biopsy needle SPECIMEN(S): 1 Core specimen(s) obtained and submitted to laboratory [facility] pathologic evaluation[facility]. . . PROCEDURE: 1. Fluoroscopically guided needle biopsy. 2. Conscious sedation with continuous EKG and Oximetry monitoring. I reviewed the patient's MRI scan from 02/16/2018. 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 There is abnormal signal involving the T7, T8, and T9 vertebra. Th e T9 vertebral body was targeted for the biopsy on this exam. Nomenclature on the MRI scan differs fr om this nomenclature. The risks, benefits and alternatives to the procedure were explained and verbal and written consent was obtained. The site was prepped in sterile fashion. Full sterile technique was used, including cap, mask, steri le gloves and gown and a large sterile sheet. Hand hygiene and 2% chlorhexidine and/or betadine/alco hol prep was utilized per protocol for cutaneous antisepsis. The skin and subcutaneous tissues were infiltrated with local anesthetic solution. With fluoroscopic guidance and utilizing a left unilateral transpedicular approach a 13-gauge PAULINA Max . Introducer needle was passed down the left pedicle of the T9 vertebral body. The tip was positioned at the junction of the pedicle and vertebral body. Through this a biopsy needle was placed and a cor e sample of the T9 vertebral body taken and placed in formalin. The needle was rinsed in the microbio logical culture media. Conscious sedation was performed with the prescribed dosages and duration as above in the presence of an independent trained radiology nurse to assist in the monitoring of the patient. EKG and oximetry remained stable throughout the procedure. CONCLUSION: 1. Uncomplicated needle biopsy of the T9 vertebra as above. Sample sent for histological and micr obiological evaluation. Electronically signed by: Alvaro Flores MD 02/19/2018 3:12 PM EDT
[2018-02-19] MEDS: Senna/Docusate Sodium 8.6/50 MG Tablet PO SCH ×2 (16:59→20:06)
[2018-02-19] MEDS ORDERED: Vancomycin Consult Pharmacy OTHER PRN (18:14)
[2018-02-19] MEDS: oxyCODONE/Acetaminophen 10/325 Tablet PO PRN (20:07)
[2018-02-19] MEDS: Vancomycin Inj 1,250 MG in Sodium Chlor 0.9% Inj 250 ML IV.SIG SCH (21:49)
[2018-02-20] MEDS: oxyCODONE/Acetaminophen 10/325 Tablet PO PRN ×4 (04:28→23:26)
[2018-02-20] MEDS: Vancomycin Inj 1,250 MG in Sodium Chlor 0.9% Inj 250 ML IV.SIG SCH ×3 (06:04→22:08)
[2018-02-20] MEDS: Morphine Inj 4 MG/ML Vial IV.PUSH PRN ×3 (06:47→20:27)
[2018-02-20] MEDS: Senna/Docusate Sodium 8.6/50 MG Tablet PO SCH ×2 (09:44→20:27)
--- NOTE | 2018-02-20 13:53 | P.PNID ---
Subjective Remarks: sp CT guided core bx, G stain neg, clx P afebrile tolerates vanco OK he thinks his back pain is slightly better Antibiotics: vancomycin Allergies/Adverse Reactions: Allergies No Known Allergies Allergy (Unverified 06/27/17 08:40) Objective Vital Signs 02/19/18 13:56 02/19/18 14:05 02/19/18 14:35 Temperature 98.0 F Pulse Rate 52 L 67 63 Respiratory Rate 16 18 20 Blood Pressure 131/80 135/91 H 136/88 Pulse Oximetry 97 93 L 91 L 02/19/18 16:23 02/19/18 20:00 02/20/18 00:00 Temperature 97.8 F 97.8 F 97.2 F L Pulse Rate 72 67 51 L Respiratory Rate 16 18 18 Blood Pressure 127/81 113/54 L 104/59 L Pulse Oximetry 98 97 98 02/20/18 04:00 02/20/18 08:00 02/20/18 12:00 Temperature 97.2 F L 98.2 F 98.2 F Pulse Rate 48 L 49 L 53 L Respiratory Rate 17 18 18 Blood Pressure 119/70 111/71 116/58 L Pulse Oximetry 98 98 97 Intake & Output 02/19/18 02/20/18 02/20/18 18:59 06:59 18:59 Intake Total 1620 / 1620 262.5 / 262.5 262.5 / 262.5 Balance 1620 / 1620 262.5 / 262.5 262.5 / 262.5 Intake: IV 1000 / 1000 262.5 / 262.5 262.5 / 262.5 NS Inj 1,000 ML @ 100 mls/hr IV 1000 / 1000 .CONT .Q10H [facility] Rx#:[id number] Vancomycin Inj 1,250 MG In NS 262.5 / 262.5 262.5 / 262.5 Inj 250 ML @ 250 mls/hr IV.SIG Q8H [facility] Rx#:[id number] Oral 620 / 620 Other: # Voids 3 2 Date of Last Bowel Movement 02/16/18 02/16/18 # Bowel Movements 0 02/19/18 13:31 Tissue - Back Gram Stain - Final 02/19/18 13:31 Tissue - Back Wound Culture - Preliminary No growth in 24 hours 02/16/18 19:35 Blood - Peripheral Aerobic Blood Culture - Preliminary No growth in 4 days 02/16/18 19:35 Blood - Peripheral Anaerobic Blood Culture - Preliminary No growth in 4 days 02/16/18 19:35 Blood - Peripheral Aerobic Blood Culture - Preliminary No growth in 4 days 02/16/18 19:35 Blood - Peripheral Anaerobic Blood Culture - Preliminary No growth in 4 days 02/19/18 13:31 Tissue - Back Fungal Smear - Pending 02/19/18 13:31 Tissue - Back Fungal Culture - Pending 02/19/18 13:31 Tissue - Back Acid Fast Bacilli Smear - Pending 02/19/18 13:31 Tissue - Back Mycobacterial Culture - Pending Imaging: ITS Impressions Chest X-Ray 02/16/18 19:16 CONCLUSION: Negative examination. Thoracic Spine MRI 02/16/18 19:16 CONCLUSION: 1. Bony fusion of T7 and T8 as well as diffuse enhancement of these fused vertebral bodies and also enhancement of the T6 vertebral body. The findings are suggestive of probable chronic osteomyelitis of these vertebral bodies. There is an enhancing epidural collection extending from the top of T6 to the midportion of the fused T7-8 vertebral body. This enhancing epidural mass results in effacement of the anterior thecal sac, mild spinal stenosis and some impingement upon the anterior aspect of the thoracic cord. Thoracic Spine X-Ray 02/16/18 23:14 CONCLUSION: 1. Repeat examination in standing position demonstrates a 12 degree right midthoracic curvature. 2. Fusion of T7-8. Needle Biopsy/Aspiration X-Ray 02/19/18 00:00 CONCLUSION: 1. Uncomplicated needle biopsy of the T9 vertebra as above. Sample sent for histological and microbiological evaluation. Physical Exam: GENERAL: NAD SKIN: Warm and dry.No rash EYES: Pupils equal and round. No scleral icterus. No injection or drainage. ENT: Mucous membranes pink and moist. CARDIOVASCULAR: Regular rate and rhythm. No murmurs RESPIRATORY: No accessory muscle use. Clear to auscultation. Breath sounds equal bilaterally. GASTROINTESTINAL: Abdomen soft, non-tender, nondistended. MUSCULOSKELETAL: Extremities without clubbing, cyanosis, or edema. NEUROLOGICAL: Awake and alert. Motor grossly within normal limits. Five out of 5 muscle strength in the arms and legs. Normal speech. PSYCHIATRIC: Appropriate mood and affect; insight and judgment normal. 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
--- NOTE | 2018-02-20 18:09 | P.PNIM ---
Subjective Interval history: Patient doing well overnight reports that she is tolerating p.o. and with no concerns. Denies fever and chills. Patient desires discharge today to inpatient rehab if possible. Physical Exam Vital signs: Vital Signs 02/19/18 20:00 02/20/18 00:00 02/20/18 04:00 Temperature 97.8 F 97.2 F L 97.2 F L Pulse Rate 67 51 L 48 L Respiratory Rate 18 18 17 Blood Pressure 113/54 L 104/59 L 119/70 Pulse Oximetry 97 98 98 02/20/18 08:00 02/20/18 12:00 02/20/18 16:00 Temperature 98.2 F 98.2 F 98.1 F Pulse Rate 49 L 53 L 53 L Respiratory Rate 18 18 18 Blood Pressure 111/71 116/58 L 127/68 Pulse Oximetry 98 97 98 Intake & Output 02/19/18 02/20/18 02/20/18 18:59 06:59 18:59 Intake Total 1620 / 1620 262.5 / 262.5 262.5 / 262.5 Balance 1620 / 1620 262.5 / 262.5 262.5 / 262.5 Intake: IV 1000 / 1000 262.5 / 262.5 262.5 / 262.5 NS Inj 1,000 ML @ 100 mls/hr IV 1000 / 1000 .CONT .Q10H [facility] Rx#:[id number] Vancomycin Inj 1,250 MG In NS 262.5 / 262.5 262.5 / 262.5 Inj 250 ML @ 250 mls/hr IV.SIG Q8H [facility] Rx#:[id number] Oral 620 / 620 Other: # Voids 3 2 Date of Last Bowel Movement 02/16/18 02/16/18 # Bowel Movements 0 Narrative: GENERAL: in no acute distress, lying comfortably. SKIN: Warm and dry. HEAD: Normocephalic. EYES: No scleral icterus. No injection or drainage. NECK: Supple, trachea midline. No JVD or lymphadenopathy. CARDIOVASCULAR: Regular rate and rhythm without murmurs, gallops, or rubs. RESPIRATORY: Breath sounds equal bilaterally. No accessory muscle use. GASTROINTESTINAL: Abdomen soft, non-tender, nondistended. MUSCULOSKELETAL: No cyanosis, or edema. BACK: Nontender without obvious deformity. No CVA tenderness. Small dressing in place, no drainage. Results - Labs CBC & Chem 7: 02/17/18 07:05 02/17/18 07:05 Microbiology 02/19/18 13:31 Tissue - Back Fungal Smear - Final No fungal elements seen 02/19/18 13:31 Tissue - Back Acid Fast Bacilli Smear - Final No acid fast bacilli seen 02/19/18 13:31 Tissue - Back Gram Stain - Final 02/19/18 13:31 Tissue - Back Wound Culture - Preliminary No growth in 24 hours 02/16/18 19:35 Blood - Peripheral Aerobic Blood Culture - Preliminary No growth in 4 days 02/16/18 19:35 Blood - Peripheral Anaerobic Blood Culture - Preliminary No growth in 4 days 02/16/18 19:35 Blood - Peripheral Aerobic Blood Culture - Preliminary No growth in 4 days 02/16/18 19:35 Blood - Peripheral Anaerobic Blood Culture - Preliminary No growth in 4 days Assessment and Plan - Assessment (1) Chronic osteomyelitis of spine Code(s): M46.20 - Osteomyelitis of vertebra, site unspecified Status: Acute (2) Intractable pain Code(s): R52 - Pain, unspecified Status: Acute - Plan 37-year-old male with a past medical history of osteomyelitis in June requiring IV antibiotics for 45 days now admitted for back pain with MRI showing chronic vertebral osteomyelitis, patient is status post core biopsy and cx pending results, ID on board, HD#4 1. Chronic Vertebral Osteomyelitis: Dx per MRI -pending cx NG@24hrs and core Bx results, previously responded to empiric vanc and levaquin clinically in 06/2017, however relapsed. -cont. vancomycin IV. will adjust abx per cx results -Per ID notes, If cx neg but path + for infection will RX with same abx as last time with f/u with his o/p ID and NS. If cx neg and path neg will consult neurosurgery. 2. Intractable Pain: secondary to above, analgesics/antiemetics as needed. 3. DVT Prophylaxis: SCD/Teds while awaiting biopsy.
[2018-02-20] MEDS ORDERED: Pharmacy Ordered Lab Info OTHER ONE (21:45)
[2018-02-21] MEDS: Morphine Inj 4 MG/ML Vial IV.PUSH PRN ×4 (04:02→22:06)
[2018-02-21 05:30] LABS: Baso % (Auto) 0.6 % (0.0-2.0); Eos # (Auto) 0.1 th/mm3 (0.0-0.4); Eos % (Auto) 2.1 % (0.0-4.0); Hematocrit 38.3 % (39.0-51.0); Hemoglobin 12.9 gm/dL (13.0-17.0); Lymph # (Auto) 1.9 th/mm3 (1.0-4.8); Lymph % (Auto) 34.7 % (9.0-44.0); Mean Corpuscular HGB Conc 33.6 % (32.0-36.0); Mean Corpuscular Hemoglobin 28.3 pg (27.0-34.0); Mean Corpuscular Volume 84.3 fL (80.0-100.0); Mean Platelet Volume 5.8 fL (7.0-11.0); Mono # (Auto) 0.4 th/mm3 (0.0-0.9); Mono % (Auto) 6.5 % (0.0-8.0); Neut # (Auto) 3.1 th/mm3 (1.8-7.7); Neut % (Auto) 56.1 % (16.0-70.0); Platelet Count 399 th/mm3 (150-450); Red Blood Count 4.54 mil/mm3 (4.50-5.90); Red Cell Distribution Width 13.5 % (11.6-17.2); White Blood Count 5.6 th/mm3 (4.0-11.0)
[2018-02-21 05:59] LABS: Anion Gap 6 meq/L (5-15); Blood Urea Nitrogen 8 mg/dL (7-18); C-Reactive Protein 2.81 mg/dL (0.00-0.30); Calcium 8.9 mg/dL (8.5-10.1); Carbon Dioxide 34.1 meq/L (21.0-32.0); Chloride 100 meq/L (98-107); Glomerular Filtration Rate Greater Than 89 mL/min (>89); Glucose,Random 88 mg/dL (74-106); Potassium 4.1 meq/L (3.5-5.1); Sodium 140 meq/L (136-145)
[2018-02-21] MEDS: Vancomycin Inj 1,000 MG in Sodium Chlor 0.9% Inj 250 ML IV.SIG SCH ×3 (06:11→22:06)
[2018-02-21] MEDS: oxyCODONE/Acetaminophen 10/325 Tablet PO PRN ×3 (06:12→19:38)
[2018-02-21] MEDS: Senna/Docusate Sodium 8.6/50 MG Tablet PO SCH ×2 (09:06→22:05)
--- NOTE | 2018-02-21 10:11 | P.PN ---
Subjective Interval history: Follow-up chronic vertebral osteomyelitis February 21, 2018-patient seen and examined, currently afebrile, minimal back pain. Culture and biopsy reports pending Physical Exam Vital signs: Vital Signs 02/20/18 12:00 02/20/18 16:00 02/20/18 20:00 Temperature 98.2 F 98.1 F 98.8 F Pulse Rate 53 L 53 L 56 L Respiratory Rate 18 18 16 Blood Pressure 116/58 L 127/68 124/59 L Pulse Oximetry 97 98 97 02/21/18 00:00 02/21/18 03:43 02/21/18 04:00 Temperature 98.3 F 97.9 F Pulse Rate 48 L 50 L 51 L Respiratory Rate 16 16 Blood Pressure 118/71 109/69 Pulse Oximetry 97 97 02/21/18 08:00 Temperature 98 F Pulse Rate 54 L Respiratory Rate 19 Blood Pressure 110/73 Pulse Oximetry 98 Intake & Output 02/20/18 02/21/18 02/21/18 18:59 06:59 18:59 Intake Total 1342.5 / 1342.5 825.0 / 825.0 250 / 250 Output Total 700 / 700 Balance 1342.5 / 1342.5 125.0 / 125.0 250 / 250 Weight 81.6 kg Intake: IV 262.5 / 262.5 525.0 / 525.0 250 / 250 Vancomycin Inj 1,000 MG In NS 250 / 250 Inj 250 ML @ 250 mls/hr IV.SIG Q8H [facility] Rx#:[id number] Vancomycin Inj 1,250 MG In NS 262.5 / 262.5 525.0 / 525.0 Inj 250 ML @ 250 mls/hr IV.SIG Q8H [facility] Rx#:[id number] Oral 1080 / 1080 300 / 300 Output: Urine 700 / 700 Other: # Voids 5 1 Date of Last Bowel Movement 02/20/18 02/20/18 # Bowel Movements 1 Narrative: GENERAL: NAD. SKIN: Warm and dry. HEAD: Normocephalic. EYES: No scleral icterus. No injection or drainage. NECK: Supple, trachea midline. No JVD or lymphadenopathy. CARDIOVASCULAR: Regular rate and rhythm without murmurs, gallops, or rubs. RESPIRATORY: Breath sounds equal bilaterally. No accessory muscle use. GASTROINTESTINAL: Abdomen soft, non-tender, nondistended. MUSCULOSKELETAL: No cyanosis, or edema. BACK: tender without obvious deformity upper back. No CVA tenderness. Small dressing in place, no drainage. Results - Labs CBC & Chem 7: 02/21/18 04:53 02/21/18 04:53 Laboratory Results - last 24 hr 02/20/18 02/21/18 02/21/18 21:51 04:53 04:53 WBC 5.6 RBC 4.54 Hgb 12.9 L Hct 38.3 L MCV 84.3 MCH 28.3 MCHC 33.6 RDW 13.5 Plt Count 399 MPV 5.8 L Neut % (Auto) 56.1 Lymph % (Auto) 34.7 [place] % (Auto) 6.5 Eos % (Auto) 2.1 Baso % (Auto) 0.6 Neut # (Auto) 3.1 Lymph # (Auto) 1.9 [place] # (Auto) 0.4 Eos # (Auto) 0.1 Baso # (Auto) 0.0 WBC Differential . Differential Comment Auto diff final Sodium 140 Potassium 4.1 Chloride 100 Carbon Dioxide 34.1 H Anion Gap 6 BUN 8 Creatinine 0.82 Estimated GFR Greater than 89 Random Glucose 88 Calcium 8.9 C-Reactive Protein 2.81 H Vancomycin Trough 22.5 H Microbiology 02/19/18 13:31 Tissue - Back Gram Stain - Final 02/19/18 13:31 Tissue - Back Wound Culture - Preliminary No growth in 48 hours 02/19/18 13:31 Tissue - Back Fungal Smear - Final No fungal elements seen 02/19/18 13:31 Tissue - Back Acid Fast Bacilli Smear - Final No acid fast bacilli seen 02/16/18 19:35 Blood - Peripheral Aerobic Blood Culture - Preliminary No growth in 4 days 02/16/18 19:35 Blood - Peripheral Anaerobic Blood Culture - Preliminary No growth in 4 days 02/16/18 19:35 Blood - Peripheral Aerobic Blood Culture - Preliminary No growth in 4 days 02/16/18 19:35 Blood - Peripheral Anaerobic Blood Culture - Preliminary No growth in 4 days Assessment and Plan - Assessment (1) Chronic osteomyelitis of spine Code(s): M46.20 - Osteomyelitis of vertebra, site unspecified Status: Acute (2) Intractable pain Code(s): R52 - Pain, unspecified Status: Acute - Plan 37-year-old man with 1. Chronic thoracic Osteomyelitis: Chronic. H/o T7-8 discitis/osteomyelitis, s/p Vanc/Levaquin x45 days on previous admit 06/14/17, now w/ recurrent pain. MRI T-Spine w/ bony fusion T7/8 suggestive of chronic osteomyelitis. Appreciate input from neurosurgery, no surgical intervention at this time. pending cx NG@48hrs and core Bx results. Currently on vancomycin and appreciate input from infectious disease specialist. Continue with TLSO brace 2. Intractable Pain: secondary to above, analgesics/antiemetics as needed. PT to treat and eval 3. DVT Prophylaxis: SCD/Teds
[2018-02-21] MEDS ORDERED: Pharmacy Ordered Lab Info OTHER ONE (21:45)
[2018-02-22] MEDS: oxyCODONE/Acetaminophen 10/325 Tablet PO PRN ×4 (01:59→21:17)
[2018-02-22] MEDS: Morphine Inj 4 MG/ML Vial IV.PUSH PRN ×3 (05:29→18:00)
[2018-02-22] MEDS: Vancomycin Inj 1,000 MG in Sodium Chlor 0.9% Inj 250 ML IV.SIG SCH ×2 (05:29→14:44)
[2018-02-22] MEDS: Senna/Docusate Sodium 8.6/50 MG Tablet PO SCH ×2 (08:17→21:18)
--- NOTE | 2018-02-22 10:33 | P.PN ---
Subjective Interval history: Follow-up chronic vertebral osteomyelitis February 21, 2018-patient seen and examined, currently afebrile, minimal back pain. Culture and biopsy reports pending February 22, 2018-patient seen and examined, stable, afebrile and no acute event overnight Physical Exam Vital signs: Vital Signs 02/21/18 12:00 02/21/18 16:00 02/21/18 19:12 Temperature 98.4 F 98.3 F 97.7 F Pulse Rate 55 L 62 53 L Respiratory Rate 19 18 18 Blood Pressure 107/65 107/53 L 118/70 Pulse Oximetry 98 96 98 02/21/18 20:00 02/21/18 23:08 02/22/18 00:11 Temperature 97.6 F Pulse Rate 55 L 52 L 63 Respiratory Rate 18 Blood Pressure 112/66 Pulse Oximetry 97 02/22/18 03:05 02/22/18 04:00 02/22/18 08:00 Temperature 97.5 F L 98.2 F Pulse Rate 51 L 51 L 54 L Respiratory Rate 18 18 Blood Pressure 116/67 114/67 Pulse Oximetry 96 98 Intake & Output 02/21/18 02/22/18 02/22/18 18:59 06:59 18:59 Intake Total 500 / 500 1330 / 1330 250 / 250 Output Total 700 / 700 Balance 500 / 500 630 / 630 250 / 250 Weight 80 kg Intake: IV 500 / 500 250 / 250 250 / 250 Vancomycin Inj 1,000 MG In NS 500 / 500 250 / 250 250 / 250 Inj 250 ML @ 250 mls/hr IV.SIG Q8H [facility] Rx#:[id number] Oral 1080 / 1080 Output: Urine 700 / 700 Other: # Voids 1 Date of Last Bowel Movement 02/20/18 02/20/18 # Bowel Movements 0 Narrative: GENERAL: NAD. SKIN: Warm and dry. HEAD: Normocephalic. EYES: No scleral icterus. No injection or drainage. NECK: Supple, trachea midline. No JVD or lymphadenopathy. CARDIOVASCULAR: Regular rate and rhythm without murmurs, gallops, or rubs. RESPIRATORY: Breath sounds equal bilaterally. No accessory muscle use. GASTROINTESTINAL: Abdomen soft, non-tender, nondistended. MUSCULOSKELETAL: No cyanosis, or edema. BACK: tender without obvious deformity upper back. No CVA tenderness. Small dressing in place, no drainage. Results - Labs CBC & Chem 7: 02/21/18 04:53 02/21/18 04:53 Laboratory Results - last 24 hr 02/21/18 21:55 Vancomycin Trough 18.7 H Microbiology 02/19/18 13:31 Tissue - Back Gram Stain - Final 02/19/18 13:31 Tissue - Back Wound Culture - Final No growth in 72 hours (aerobically and anaerobically ) 02/16/18 19:35 Blood - Peripheral Aerobic Blood Culture - Final No growth in 5 days 02/16/18 19:35 Blood - Peripheral Anaerobic Blood Culture - Final No growth in 5 days 02/16/18 19:35 Blood - Peripheral Aerobic Blood Culture - Final No growth in 5 days 02/16/18 19:35 Blood - Peripheral Anaerobic Blood Culture - Final No growth in 5 days Assessment and Plan - Assessment (1) Chronic osteomyelitis of spine Code(s): M46.20 - Osteomyelitis of vertebra, site unspecified Status: Acute (2) Intractable pain Code(s): R52 - Pain, unspecified Status: Acute - Plan 37-year-old man with 1. Chronic thoracic Osteomyelitis: Chronic. H/o T7-8 discitis/osteomyelitis, s/p Vanc/Levaquin x45 days on previous admit 06/14/17, now w/ recurrent pain. MRI T-Spine w/ bony fusion T7/8 suggestive of chronic osteomyelitis. Appreciate input from neurosurgery, no surgical intervention at this time. Biopsy with evidence of chronic osteomyelitis. Currently on vancomycin and appreciate input from infectious disease specialist. Continue with TLSO brace 2. Intractable Pain: secondary to above, analgesics/antiemetics as needed. PT to treat and eval 3. DVT Prophylaxis: SCD/Teds
[2018-02-22] MEDS ORDERED: Vancomycin Inj 1,000 MG in Sodium Chlor 0.9% Inj 250 ML IV.SIG ONE (17:00)
--- NOTE | 2018-02-22 17:10 | P.DCO ---
Post Hospital Infusion Therapy Location of Infusion Therapy: Home Health Care IV Infusion Order Patient Weight: 80 kg - Diagnosis (1) Chronic osteomyelitis of spine Code(s): M46.20 - Osteomyelitis of vertebra, site unspecified - Administer Medication Vancomycin Dose: 2 grams IV Directions: q 12 hours Start Treatment: 02/23/18 Stop Treatment: 04/19/18 - Additional Information Venous Access: PICC Line Additional Instructions: [x] Peripheral flush and dressing changes per protocol [x] Implanted port and central line technician: * Implanted port: 10 ml Normal Saline followed by 5 ml Heparin 100 units/ml Heparin flush after each use and monthly to maintain. [] May leave port accessed during therapy. [] May leave peripheral site accessed for duration of therapy. [x] If patient has SOB or respiratory distress, check oxygen saturation. If less than 90% or clinical signs of respiratory distress, administer oxygen at 2 L/min. via nasal cannula and notify physician. [x] Anaphylaxis/Reaction orders: * Stop infusion. * Keep IV line open with saline flush. * Notify physician. * Monitor vital signs every 15 minutes until symptoms resolve. * Check Oxygen saturation; Oxygen at 2 L/min. via nasal cannula if less than 90% or clinical signs of respiratory distress. * Administer diphenhydramine (Benadryl) 25 mg IV STAT, (unless patient has received as pre-med). May repeat once, if necessary. * Solu-Cortef 250 mg IVP over 30-60 seconds, use 100 mg vials for each dissolution. * Epinephrine (1mg/1 ml) 0.3 mg subcutaneously or IVP now with any signs of respiratory distress. * Check with physician for new additional pre-med orders if patient is re- challenged or re-treated. [x] May remove PICC line when treatment complete, after confirming with Physician. [x] If the patient is admitted to the hospital, the ED, or transferred via [facility] , complete transfer form including medication reconciliation order sheet. Weekly Labs: CBC w/diff, CMP, CRP, SED Rate, Vancomycin Trough Allergies No Known Allergies Allergy (Unverified 06/27/17 08:40)
--- NOTE | 2018-02-22 19:51 | P.PNID ---
Subjective Remarks: sp CT guided core bx, G stain neg, clx P afebrile tolerates vanco OK he thinks his back pain is slightly better path cw chronic osteo clx are negative - final AFB/fungal stains neg, clx P Antibiotics: vancomycin Allergies/Adverse Reactions: Allergies No Known Allergies Allergy (Unverified 06/27/17 08:40) Objective Vital Signs 02/21/18 20:00 02/21/18 23:08 02/22/18 00:11 Temperature 97.6 F Pulse Rate 55 L 52 L 63 Respiratory Rate 18 Blood Pressure 112/66 Pulse Oximetry 97 02/22/18 03:05 02/22/18 04:00 02/22/18 08:00 Temperature 97.5 F L 98.2 F Pulse Rate 51 L 51 L 54 L Respiratory Rate 18 18 Blood Pressure 116/67 114/67 Pulse Oximetry 96 98 02/22/18 09:00 02/22/18 12:00 02/22/18 16:00 Temperature 98.2 F 98.6 F Pulse Rate 51 L 59 L 59 L Respiratory Rate 18 18 Blood Pressure 103/74 120/57 L Pulse Oximetry 98 98 Intake & Output 02/22/18 02/22/18 02/23/18 06:59 18:59 06:59 Intake Total 1330 / 1330 1600 / 1600 Output Total 700 / 700 650 / 650 Balance 630 / 630 950 / 950 Weight 80 kg 80 kg Intake: IV 250 / 250 500 / 500 Vancomycin Inj 1,000 MG In NS 250 / 250 500 / 500 Inj 250 ML @ 250 mls/hr IV.SIG Q8H [facility] Rx#:[id number] Oral 1080 / 1080 1100 / 1100 Output: Urine 700 / 700 650 / 650 Other: # Voids 1 Date of Last Bowel Movement 02/20/18 02/20/18 # Bowel Movements 0 02/19/18 13:31 Tissue - Back Gram Stain - Final 02/19/18 13:31 Tissue - Back Wound Culture - Final No growth in 72 hours (aerobically and anaerobically ) 02/16/18 19:35 Blood - Peripheral Aerobic Blood Culture - Final No growth in 5 days 02/16/18 19:35 Blood - Peripheral Anaerobic Blood Culture - Final No growth in 5 days 02/16/18 19:35 Blood - Peripheral Aerobic Blood Culture - Final No growth in 5 days 02/16/18 19:35 Blood - Peripheral Anaerobic Blood Culture - Final No growth in 5 days 02/19/18 13:31 Tissue - Back Fungal Smear - Final No fungal elements seen 02/19/18 13:31 Tissue - Back Fungal Culture - Pending 02/19/18 13:31 Tissue - Back Acid Fast Bacilli Smear - Final No acid fast bacilli seen 02/19/18 13:31 Tissue - Back Mycobacterial Culture - Pending Lab - Hematology Results 02/21/18 04:53 WBC 5.6 RBC 4.54 Hgb 12.9 L Hct 38.3 L MCV 84.3 MCH 28.3 MCHC 33.6 RDW 13.5 Plt Count 399 MPV 5.8 L Neut % (Auto) 56.1 Lymph % (Auto) 34.7 [place] % (Auto) 6.5 Eos % (Auto) 2.1 Baso % (Auto) 0.6 Neut # (Auto) 3.1 Lymph # (Auto) 1.9 [place] # (Auto) 0.4 Eos # (Auto) 0.1 Baso # (Auto) 0.0 WBC Differential . Differential Comment Auto diff final Lab - Chemistry Results 02/21/18 04:53 Sodium 140 Potassium 4.1 Chloride 100 Carbon Dioxide 34.1 H Anion Gap 6 BUN 8 Creatinine 0.82 Estimated GFR Greater than 89 Random Glucose 88 Calcium 8.9 C-Reactive Protein 2.81 H Imaging: ITS Impressions Chest X-Ray 02/16/18 19:16 CONCLUSION: Negative examination. Thoracic Spine MRI 02/16/18 19:16 CONCLUSION: 1. Bony fusion of T7 and T8 as well as diffuse enhancement of these fused vertebral bodies and also enhancement of the T6 vertebral body. The findings are suggestive of probable chronic osteomyelitis of these vertebral bodies. There is an enhancing epidural collection extending from the top of T6 to the midportion of the fused T7-8 vertebral body. This enhancing epidural mass results in effacement of the anterior thecal sac, mild spinal stenosis and some impingement upon the anterior aspect of the thoracic cord. Thoracic Spine X-Ray 02/16/18 23:14 CONCLUSION: 1. Repeat examination in standing position demonstrates a 12 degree right midthoracic curvature. 2. Fusion of T7-8. Needle Biopsy/Aspiration X-Ray 02/19/18 00:00 CONCLUSION: 1. Uncomplicated needle biopsy of the T9 vertebra as above. Sample sent for histological and microbiological evaluation. Physical Exam: GENERAL: NAD SKIN: Warm and dry.No rash HEENT: moist mucosae, non icteric sclerae RESPIRATORY: breathing unlaboured MUSCULOSKELETAL: Extremities without clubbing, cyanosis, or edema. NEUROLOGICAL: Awake and alert. Motor grossly within normal limits. Five out of 5 muscle strength in the arms and legs. Normal speech. PSYCHIATRIC: Appropriate mood and affect; insight and judgment normal. 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
[2018-02-23] MEDS: Morphine Inj 4 MG/ML Vial IV.PUSH PRN ×3 (00:42→20:06)
[2018-02-23] MEDS: oxyCODONE/Acetaminophen 10/325 Tablet PO PRN ×4 (03:38→22:52)
[2018-02-23] MEDS: Vancomycin Inj 2,000 MG in Sodium Chlor 0.9% Inj 500 ML IV.SIG SCH ×2 (04:52→17:32)
[2018-02-23] MEDS: levoFLOXacin 750 MG Tablet PO SCH (08:23)
[2018-02-23] MEDS: Senna/Docusate Sodium 8.6/50 MG Tablet PO SCH ×2 (08:23→20:06)
--- NOTE | 2018-02-23 08:39 | P.DCO ---
- Home Health Nursing Order: IV medication administration - Certification I have seen patient Tae Bernstein on 02/23/18. My clinical findings support the need for the requested home health care services because: Limited mobility due to disease progression, Deconditioned with increased weakness I certify that my clinical findings support that this patient is homebound because: Poor cardiac reserve
[2018-02-23 08:50] LABS: Glomerular Filtration Rate Greater Than 89 mL/min (>89)
--- NOTE | 2018-02-23 10:21 | P.PN ---
Subjective Interval history: Follow-up chronic vertebral osteomyelitis February 21, 2018-patient seen and examined, currently afebrile, minimal back pain. Culture and biopsy reports pending February 22, 2018-patient seen and examined, stable, afebrile and no acute event overnight February 23, 2018-patient seen and examined, patient seen and examined, states he was up and ambulated. Reports improvement of back pain. Currently afebrile. Physical Exam Vital signs: Vital Signs 02/22/18 12:00 02/22/18 16:00 02/22/18 20:00 Temperature 98.2 F 98.6 F 99.0 F Pulse Rate 59 L 59 L 60 Respiratory Rate 18 18 18 Blood Pressure 103/74 120/57 L 115/66 Pulse Oximetry 98 98 97 02/23/18 00:00 02/23/18 00:05 02/23/18 04:00 Temperature 97.8 F 97.8 F Pulse Rate 58 L 50 L 57 L Respiratory Rate 22 18 Blood Pressure 135/80 124/78 Pulse Oximetry 99 94 L 02/23/18 04:46 02/23/18 08:00 Temperature 98.6 F Pulse Rate 58 L Respiratory Rate 18 16 Blood Pressure 114/73 Pulse Oximetry 98 Intake & Output 02/22/18 02/23/18 02/23/18 18:59 06:59 18:59 Intake Total 1600 / 1600 730 / 730 520 / 520 Output Total 650 / 650 Balance 950 / 950 730 / 730 520 / 520 Weight 80 kg 78.7 kg Intake: IV 500 / 500 250 / 250 520 / 520 Vancomycin Inj 1,000 MG In NS 500 / 500 250 / 250 Inj 250 ML @ 250 mls/hr IV.SIG ONCE ONE Rx#:[id number] Vancomycin Inj 2,000 MG In NS 520 / 520 Inj 500 ML @ 250 mls/hr IV.SIG Q12H [facility] Rx#:[id number] Oral 1100 / 1100 480 / 480 Output: Urine 650 / 650 Other: # Voids 4 Date of Last Bowel Movement 02/20/18 02/20/18 02/22/18 Narrative: GENERAL: NAD. SKIN: Warm and dry. HEAD: Normocephalic. EYES: No scleral icterus. No injection or drainage. NECK: Supple, trachea midline. No JVD or lymphadenopathy. CARDIOVASCULAR: Regular rate and rhythm without murmurs, gallops, or rubs. RESPIRATORY: Breath sounds equal bilaterally. No accessory muscle use. GASTROINTESTINAL: Abdomen soft, non-tender, nondistended. MUSCULOSKELETAL: No cyanosis, or edema. BACK: tender without obvious deformity upper back. No CVA tenderness. Small dressing in place, no drainage. Results - Labs CBC & Chem 7: 02/21/18 04:53 02/23/18 07:18 Laboratory Results - last 24 hr 02/23/18 07:18 Creatinine 0.75 Estimated GFR Greater than 89 Microbiology 02/19/18 13:31 Tissue - Back Gram Stain - Final 02/19/18 13:31 Tissue - Back Wound Culture - Final No growth in 72 hours (aerobically and anaerobically ) - Procedures Thoracic spine biopsy Assessment and Plan - Assessment (1) Chronic osteomyelitis of spine Code(s): M46.20 - Osteomyelitis of vertebra, site unspecified Status: Acute - Plan 37-year-old man with 1. Chronic thoracic Osteomyelitis: Chronic. H/o T7-8 discitis/osteomyelitis, s/p Vanc/Levaquin x45 days on previous admit 06/14/17, now w/ recurrent pain. MRI T-Spine w/ bony fusion T7/8 suggestive of chronic osteomyelitis. Appreciate input from neurosurgery, no surgical intervention at this time. Biopsy with evidence of chronic osteomyelitis. Currently on vancomycin IV and p.o. Levaquin 8 weeks per infectious disease specialist. Continue with TLSO brace 2. Intractable Pain: Improving, secondary to above, analgesics/antiemetics as needed. PT to treat and eval 3. DVT Prophylaxis: SCD/Teds E-FORCSE Prescription Drug Monitoring Database has been queried and verified prior to prescribing the controlled substance. Acute pain exception. This patient has normal, predicted, physiological, and time limited response to an adverse mechanical stimulus associated with surgery, trauma, or acute illness as described in my notes. There is a lack of alternative treatment options other than to include the prescribed narcotic treatment for this condition.
[2018-02-23] MEDS ORDERED: Heparin Central Flush 100 UNIT/ML 5 ML Vial IV.FLUSH PRN (10:32)
--- NOTE | 2018-02-23 10:40 | P.DS ---
Date of admission: 02/16/18 23:24 Primary care physician: [facility] Anticipated date of discharge: 02/23/18 Brief History from admission: This is a 37-year-old male with a PMH of CVA 2010 and H/o Thoracic Osteomyelitis who presented to the ER w/ complaints thoracic back pain x5 days. Notes pain is similar to previous episode of osteomyelitis. Pain is constant , severe, 9/10, non-radiating. Also notes subjective fever, chills. Previous admit 06/14-06/23/17 for similar complaints, MRI T-Spine 06/15/17 w/ T7-T8 discitis, s/p CT Guided Biopsy by IR 06/20/17, cultures negative, Pathology positive for Osteomyelitis, s/p eval by ID, completed treatment w/ Vanc/Levaquin x45 days. States he was seen by ID and Neurosurgery at [facility] for an "exit eval", had imaging done at that time w/ no recommendation for surgical intervention. On arrival, BP 129/85, HR 73, O2 sat 99% on RA, Afebrile. CBC unremarkable. Chemistry essentially unremarkable. Troponin negative. CRP 10. T-spine X-ray mild compression deformity L1, fusion of compressed midthoracic vertebral bodies at T7-8. CXR negative. MRI T-spine bony fusion of T7 and T8 8 suggestive of chronic osteomyelitis, enhancing epidural collection of T6-T7 8 with some impingement on the cord. Dr. Gongora consulted by ER physician, no likely surgical intervention at this time, recommendation for IV Abx and eval by ID. DS: Diagnosis - Discharge Diagnosis (1) Chronic osteomyelitis of spine Status: Acute DS: Medications - Discharge Medications Prescriptions: oxycodone-acetaminophen 1 tab PO Q6H PRN #30 tab PRN Reason: Acute Pain DS: Summary Hospital Course: Patient admitted with IV antibiotics starting and consultation placed to bulb infectious disease specialist as well as neurosurgery. Patient had a biopsy of the thoracic spine. Pain management was provided accordingly. Antibiotics were adjusted accordingly and the PICC line was placed. Patient will be discharged on IV vancomycin and p.o. Levaquin 8 weeks. DVT prophylaxis were provided. TLSO brace was ordered. Prior to discharge, patient's condition improved and vitals remained stable. - Time Spent with Patient Total time spent providing and/or coordinating discharge services: Greater than 30 minutes - Quality: VTE Deep Vein Thrombosis/Pulmonary Embolism Present on Admission: No Exam Vital signs: Vital Signs 02/22/18 12:00 02/22/18 16:00 02/22/18 20:00 Temperature 98.2 F 98.6 F 99.0 F Pulse Rate 59 L 59 L 60 Respiratory Rate 18 18 18 Blood Pressure 103/74 120/57 L 115/66 Pulse Oximetry 98 98 97 02/23/18 00:00 02/23/18 00:05 02/23/18 04:00 Temperature 97.8 F 97.8 F Pulse Rate 58 L 50 L 57 L Respiratory Rate 22 18 Blood Pressure 135/80 124/78 Pulse Oximetry 99 94 L 02/23/18 04:46 02/23/18 08:00 02/23/18 10:29 Temperature 98.6 F Pulse Rate 58 L 52 L Respiratory Rate 18 16 Blood Pressure 114/73 Pulse Oximetry 98 Intake & Output 02/22/18 02/23/18 02/23/18 18:59 06:59 18:59 Intake Total 1600 / 1600 730 / 730 520 / 520 Output Total 650 / 650 Balance 950 / 950 730 / 730 520 / 520 Weight 80 kg 78.7 kg Intake: IV 500 / 500 250 / 250 520 / 520 Vancomycin Inj 1,000 MG In NS 500 / 500 250 / 250 Inj 250 ML @ 250 mls/hr IV.SIG ONCE ONE Rx#:[id number] Vancomycin Inj 2,000 MG In NS 520 / 520 Inj 500 ML @ 250 mls/hr IV.SIG Q12H [facility] Rx#:[id number] Oral 1100 / 1100 480 / 480 Output: Urine 650 / 650 Other: # Voids 4 Date of Last Bowel Movement 02/20/18 02/20/18 02/22/18 Narrative: GENERAL: NAD SKIN: Warm and dry. HEAD: Normocephalic. EYES: No scleral icterus. No injection or drainage. NECK: Supple, trachea midline. No JVD or lymphadenopathy. CARDIOVASCULAR: Regular rate and rhythm without murmurs, gallops, or rubs. RESPIRATORY: Breath sounds equal bilaterally. No accessory muscle use. GASTROINTESTINAL: Abdomen soft, non-tender, nondistended. MUSCULOSKELETAL: No cyanosis, or edema. BACK: Nontender without obvious deformity. No CVA tenderness. Results Procedures completed during hospitalization: Thoracic spine biopsy Labs on day of discharge: Labs from last 24 hours 02/23/18 07:18 Creatinine 0.75 Estimated GFR Greater than 89 - Impressions ITS Impressions Chest X-Ray 02/16/18 19:16 CONCLUSION: Negative examination. Thoracic Spine MRI 02/16/18 19:16 CONCLUSION: 1. Bony fusion of T7 and T8 as well as diffuse enhancement of these fused vertebral bodies and also enhancement of the T6 vertebral body. The findings are suggestive of probable chronic osteomyelitis of these vertebral bodies. There is an enhancing epidural collection extending from the top of T6 to the midportion of the fused T7-8 vertebral body. This enhancing epidural mass results in effacement of the anterior thecal sac, mild spinal stenosis and some impingement upon the anterior aspect of the thoracic cord. Thoracic Spine X-Ray 02/16/18 23:14 CONCLUSION: 1. Repeat examination in standing position demonstrates a 12 degree right midthoracic curvature. 2. Fusion of T7-8. Needle Biopsy/Aspiration X-Ray 02/19/18 00:00 CONCLUSION: 1. Uncomplicated needle biopsy of the T9 vertebra as above. Sample sent for histological and microbiological evaluation. Discharge Plan - Discharge Disposition Patient Disposition: W/Home Health Service - Discharge Condition Condition: Stable - Discharge Order Discharge Orders: Discharge Order (Routine); Ordered 02/23/18 Ordered By: Trino Gregorio - Physicians Team Primary Care Provider: [facility] [place] Attending Provider: Trino Gregorio Other Providers: April Oates MD ; Guzman Ruelas MD
--- NOTE | 2018-02-23 15:42 | P.PNADD ---
Addendum to Inpatient Note Additional information: random vanco level @ 8 hrs post last dose s 18.2 OK to dc pt on vanco IV 2 g q 12 + levaquin 750 daily x 8 wks He will be followed by Dr Saad MATHUR from [facility] I anisha her the post dc care of the pt; she Ok pt to be dc'd with the random vanco level of 18 p 8 hrs on current dose
[2018-02-24] MEDS: Morphine Inj 4 MG/ML Vial IV.PUSH PRN ×4 (03:00→21:55)
[2018-02-24] MEDS ORDERED: Pharmacy Ordered Lab Info OTHER ONE (04:45)
[2018-02-24] MEDS: Vancomycin Inj 2,000 MG in Sodium Chlor 0.9% Inj 500 ML IV.SIG SCH ×2 (04:47→16:58)
[2018-02-24] MEDS: oxyCODONE/Acetaminophen 10/325 Tablet PO PRN ×3 (05:10→18:00)
[2018-02-24] MEDS: levoFLOXacin 750 MG Tablet PO SCH (09:50)
[2018-02-24] MEDS: Senna/Docusate Sodium 8.6/50 MG Tablet PO SCH ×2 (09:50→20:53)
[2018-02-24] MEDS: Heparin Central Flush 100 UNIT/ML 5 ML Vial IV.FLUSH SCH (11:16)
--- NOTE | 2018-02-24 11:46 | P.PN ---
Subjective Interval history: Follow-up chronic vertebral osteomyelitis February 21, 2018-patient seen and examined, currently afebrile, minimal back pain. Culture and biopsy reports pending February 22, 2018-patient seen and examined, stable, afebrile and no acute event overnight February 23, 2018-patient seen and examined, patient seen and examined, states he was up and ambulated. Reports improvement of back pain. Currently afebrile. February 24, 2018-patient seen and examined, stable and no complaint. Discharge on hold Physical Exam Vital signs: Vital Signs 02/23/18 12:00 02/23/18 13:02 02/23/18 16:00 Temperature 98.6 F 98.4 F Pulse Rate 69 62 Respiratory Rate 16 16 16 Blood Pressure 103/59 L 120/59 L Pulse Oximetry 95 96 02/23/18 20:00 02/24/18 00:00 02/24/18 04:00 Temperature 98.8 F 98.4 F 98.6 F Pulse Rate 61 69 53 L Respiratory Rate 20 20 20 Blood Pressure 117/68 123/74 109/67 Pulse Oximetry 97 97 98 02/24/18 08:00 Temperature 97.9 F Pulse Rate 18 L Respiratory Rate 54 H Blood Pressure 117/70 Pulse Oximetry 97 Intake & Output 02/23/18 02/24/18 02/24/18 18:59 06:59 18:59 Intake Total 760 / 760 1000 / 1000 20 / 20 Balance 760 / 760 1000 / 1000 20 / 20 Intake: IV 520 / 520 1000 / 1000 20 / 20 Vancomycin Inj 2,000 MG In NS 520 / 520 1000 / 1000 20 / 20 Inj 500 ML @ 250 mls/hr IV.SIG Q12H [facility] Rx#:[id number] Oral 240 / 240 Other: # Voids 3 Date of Last Bowel Movement 02/22/18 02/21/18 # Bowel Movements 0 Narrative: GENERAL: NAD. SKIN: Warm and dry. HEAD: Normocephalic. EYES: No scleral icterus. No injection or drainage. NECK: Supple, trachea midline. No JVD or lymphadenopathy. CARDIOVASCULAR: Regular rate and rhythm without murmurs, gallops, or rubs. RESPIRATORY: Breath sounds equal bilaterally. No accessory muscle use. GASTROINTESTINAL: Abdomen soft, non-tender, nondistended. MUSCULOSKELETAL: No cyanosis, or edema. BACK: nontender without obvious deformity upper back. No CVA tenderness. Results - Labs CBC & Chem 7: 02/21/18 04:53 02/23/18 07:18 Laboratory Results - last 24 hr 02/23/18 02/24/18 14:00 04:40 Vancomycin Trough 14.3 H Random Vancomycin 18.2 - Procedures Thoracic spine biopsy Assessment and Plan - Assessment (1) Chronic osteomyelitis of spine Code(s): M46.20 - Osteomyelitis of vertebra, site unspecified Status: Acute - Plan 37-year-old man with 1. Chronic thoracic Osteomyelitis: Chronic. H/o T7-8 discitis/osteomyelitis, s/p Vanc/Levaquin x45 days on previous admit 06/14/17, now w/ recurrent pain. MRI T-Spine w/ bony fusion T7/8 suggestive of chronic osteomyelitis. Appreciate input from neurosurgery, no surgical intervention at this time. Biopsy with evidence of chronic osteomyelitis. Currently on vancomycin IV and p.o. Levaquin 8 weeks per infectious disease specialist. Continue with TLSO brace Patient will follow outpatient with Dr. Nash ,[place] 2. Intractable Pain: Improved, secondary to above, analgesics/antiemetics as needed. PT to treat and eval 3. DVT Prophylaxis: SCD/Teds E-FORCSE Prescription Drug Monitoring Database has been queried and verified prior to prescribing the controlled substance. Acute pain exception. This patient has normal, predicted, physiological, and time limited response to an adverse mechanical stimulus associated with surgery, trauma, or acute illness as described in my notes. There is a lack of alternative treatment options other than to include the prescribed narcotic treatment for this condition.
[2018-02-25] MEDS: oxyCODONE/Acetaminophen 10/325 Tablet PO PRN ×4 (00:07→18:19)
[2018-02-25] MEDS: Morphine Inj 4 MG/ML Vial IV.PUSH PRN ×4 (04:37→22:13)
[2018-02-25] MEDS: Vancomycin Inj 2,000 MG in Sodium Chlor 0.9% Inj 500 ML IV.SIG SCH ×2 (05:44→16:08)
[2018-02-25 05:53] LABS: Glomerular Filtration Rate Greater Than 89 mL/min (>89)
[2018-02-25] MEDS: Heparin Central Flush 100 UNIT/ML 5 ML Vial IV.FLUSH SCH (08:56)
[2018-02-25] MEDS: levoFLOXacin 750 MG Tablet PO SCH (08:56)
[2018-02-25] MEDS: Senna/Docusate Sodium 8.6/50 MG Tablet PO SCH ×2 (08:57→22:13)
--- NOTE | 2018-02-25 13:28 | P.PN ---
Subjective Interval history: Follow-up chronic vertebral osteomyelitis February 21, 2018-patient seen and examined, currently afebrile, minimal back pain. Culture and biopsy reports pending February 22, 2018-patient seen and examined, stable, afebrile and no acute event overnight February 23, 2018-patient seen and examined, patient seen and examined, states he was up and ambulated. Reports improvement of back pain. Currently afebrile. February 24, 2018-patient seen and examined, stable and no complaint. Discharge on hold February 25, 2018-patient seen and examined, stated he is now able to ambulate more without any significant back pain. No acute event overnight. Physical Exam Vital signs: Vital Signs 02/24/18 16:00 02/24/18 20:00 02/25/18 00:00 Temperature 97.9 F 99 F 98.3 F Pulse Rate 74 59 L 58 L Respiratory Rate 18 18 18 Blood Pressure 119/74 114/61 110/69 Pulse Oximetry 97 95 97 02/25/18 04:00 02/25/18 08:00 Temperature 97.7 F 98.5 F Pulse Rate 52 L 58 L Respiratory Rate 16 20 Blood Pressure 116/73 108/63 Pulse Oximetry 98 98 Intake & Output 02/24/18 02/25/18 02/25/18 18:59 06:59 18:59 Intake Total 1220 / 1220 1000 / 1000 520 / 520 Balance 1220 / 1220 1000 / 1000 520 / 520 Intake: IV 520 / 520 520 / 520 Vancomycin Inj 2,000 MG In NS 520 / 520 520 / 520 Inj 500 ML @ 250 mls/hr IV.SIG Q12H [facility] [place] Rx#:[id number] Oral 1200 / 1200 480 / 480 Other: # Voids 4 3 Date of Last Bowel Movement 02/24/18 02/24/18 # Bowel Movements 1 Narrative: GENERAL: NAD. SKIN: Warm and dry. HEAD: Normocephalic. EYES: No scleral icterus. No injection or drainage. NECK: Supple, trachea midline. No JVD or lymphadenopathy. CARDIOVASCULAR: Regular rate and rhythm without murmurs, gallops, or rubs. RESPIRATORY: Breath sounds equal bilaterally. No accessory muscle use. GASTROINTESTINAL: Abdomen soft, non-tender, nondistended. MUSCULOSKELETAL: No cyanosis, or edema. BACK: nontender without obvious deformity upper back. No CVA tenderness. Results - Labs CBC & Chem 7: 02/21/18 04:53 02/25/18 04:40 Laboratory Results - last 24 hr 02/25/18 04:40 Creatinine 0.80 Estimated GFR Greater than 89 - Procedures Thoracic spine biopsy Assessment and Plan - Assessment (1) Chronic osteomyelitis of spine Code(s): M46.20 - Osteomyelitis of vertebra, site unspecified Status: Acute - Plan 37-year-old man with 1. Chronic thoracic Osteomyelitis: Chronic. H/o T7-8 discitis/osteomyelitis, s/p Vanc/Levaquin x45 days on previous admit 06/14/17, now w/ recurrent pain. MRI T-Spine w/ bony fusion T7/8 suggestive of chronic osteomyelitis. Appreciate input from neurosurgery, no surgical intervention at this time. Biopsy with evidence of chronic osteomyelitis. Currently on vancomycin IV and p.o. Levaquin 8 weeks per infectious disease specialist. Continue with TLSO brace Patient will follow outpatient with Dr. Nash ,[place] 2. Intractable Pain: Improved, secondary to above, analgesics/antiemetics as needed. PT to treat and eval 3. DVT Prophylaxis: SCD/Teds E-FORCSE Prescription Drug Monitoring Database has been queried and verified prior to prescribing the controlled substance. Acute pain exception. This patient has normal, predicted, physiological, and time limited response to an adverse mechanical stimulus associated with surgery, trauma, or acute illness as described in my notes. There is a lack of alternative treatment options other than to include the prescribed narcotic treatment for this condition.
[2018-02-26] MEDS: oxyCODONE/Acetaminophen 10/325 Tablet PO PRN ×4 (00:23→19:30)
[2018-02-26] MEDS: Morphine Inj 4 MG/ML Vial IV.PUSH PRN ×2 (04:49→10:33)
[2018-02-26] MEDS: Vancomycin Inj 2,000 MG in Sodium Chlor 0.9% Inj 500 ML IV.SIG SCH ×2 (04:49→17:01)
[2018-02-26] MEDS: Heparin Central Flush 100 UNIT/ML 5 ML Vial IV.FLUSH SCH (08:20)
[2018-02-26] MEDS: Senna/Docusate Sodium 8.6/50 MG Tablet PO SCH (08:20)
[2018-02-26] MEDS: levoFLOXacin 750 MG Tablet PO SCH (08:20)
[2018-02-26 08:49] VITALS: O2SAT 98
--- NOTE | 2018-02-26 11:40 | P.PN ---
Subjective Interval history: Follow-up chronic vertebral osteomyelitis February 21, 2018-patient seen and examined, currently afebrile, minimal back pain. Culture and biopsy reports pending February 22, 2018-patient seen and examined, stable, afebrile and no acute event overnight February 23, 2018-patient seen and examined, patient seen and examined, states he was up and ambulated. Reports improvement of back pain. Currently afebrile. February 24, 2018-patient seen and examined, stable and no complaint. Discharge on hold February 25, 2018-patient seen and examined, stated he is now able to ambulate more without any significant back pain. No acute event overnight. February 26, 2018-patient seen and examined, no acute event overnight. Looking for discharge home today Physical Exam Vital signs: Vital Signs 02/25/18 12:00 02/25/18 16:00 02/25/18 20:00 Temperature 98.4 F 98.2 F 98.1 F Pulse Rate 60 61 70 Respiratory Rate 16 16 14 Blood Pressure 107/55 L 104/55 L 118/99 H Pulse Oximetry 97 98 99 02/26/18 00:00 02/26/18 02:09 02/26/18 04:00 Temperature 97.9 F 98.6 F Pulse Rate 61 56 L Respiratory Rate 14 14 14 Blood Pressure 119/80 118/71 Pulse Oximetry 98 99 02/26/18 08:00 Temperature 97.8 F Pulse Rate 61 Respiratory Rate 16 Blood Pressure 109/59 L Pulse Oximetry 98 Intake & Output 02/25/18 02/26/18 02/26/18 18:59 06:59 18:59 Intake Total 1040 / 1040 250 / 250 520 / 520 Balance 1040 / 1040 250 / 250 520 / 520 Intake: IV 1040 / 1040 520 / 520 Vancomycin Inj 2,000 MG In NS 1040 / 1040 520 / 520 Inj 500 ML @ 250 mls/hr IV.SIG Q12H [facility] Rx#:[id number] Oral 250 / 250 Other: # Voids 2 Date of Last Bowel Movement 02/24/18 02/24/18 Narrative: GENERAL: NAD. SKIN: Warm and dry. HEAD: Normocephalic. EYES: No scleral icterus. No injection or drainage. NECK: Supple, trachea midline. No JVD or lymphadenopathy. CARDIOVASCULAR: Regular rate and rhythm without murmurs, gallops, or rubs. RESPIRATORY: Breath sounds equal bilaterally. No accessory muscle use. GASTROINTESTINAL: Abdomen soft, non-tender, nondistended. MUSCULOSKELETAL: No cyanosis, or edema. BACK: nontender without obvious deformity upper back. No CVA tenderness. Results - Labs CBC & Chem 7: 02/21/18 04:53 02/25/18 04:40 - Procedures Thoracic spine biopsy Assessment and Plan - Assessment (1) Chronic osteomyelitis of spine Code(s): M46.20 - Osteomyelitis of vertebra, site unspecified Status: Acute - Plan 37-year-old man with 1. Chronic thoracic Osteomyelitis: Chronic. H/o T7-8 discitis/osteomyelitis, s/p Vanc/Levaquin x45 days on previous admit 06/14/17, now w/ recurrent pain. MRI T-Spine w/ bony fusion T7/8 suggestive of chronic osteomyelitis. Appreciate input from neurosurgery, no surgical intervention at this time. Biopsy with evidence of chronic osteomyelitis. Currently on vancomycin IV and p.o. Levaquin 8 weeks per infectious disease specialist. Continue with TLSO brace Patient will follow outpatient with Dr. Nash ,[place] [facility] 2. Intractable Pain: Improved, secondary to above, analgesics/antiemetics as needed. PT to treat and eval 3. DVT Prophylaxis: SCD/Teds E-FORCSE Prescription Drug Monitoring Database has been queried and verified prior to prescribing the controlled substance. Acute pain exception. This patient has normal, predicted, physiological, and time limited response to an adverse mechanical stimulus associated with surgery, trauma, or acute illness as described in my notes. There is a lack of alternative treatment options other than to include the prescribed narcotic treatment for this condition.
[2018-02-26 17:57] VITALS: BP 114/64; PULSE 61; RESP 16; TEMP 98.2
== END 2018-02-26 19:55 | disposition home health service (06) ==
LOC: NEPE 17:07 → NEDA 23:24 → N06 02-17 02:36
PROVIDERS: ADMIT Hospitalist; ATTEND Hospitalist